=== PATIENT | female | born 1960 | race Caucasian/White ===

== ENCOUNTER 2018-02-28 11:11 | Observation (INO) | payer OTHER ==
[2018-02-28] MEDS ORDERED: ALBUTEROL 2.5 MG/3 ML NEB SOL IH PRN (13:05)
--- NOTE | 2018-02-28 13:17 | RAD REPORT ---
EXAM DESCRIPTION: CT - Head Brain Wo Cont - 02/28/2018 1:07 pm CLINICAL HISTORY: Headache, CVA COMPARISON: No comparisons TECHNIQUE: All CT scans are performed using dose optimization technique as appropriate and may inclu de automated exposure control or mA/KV adjustment according to patient size. FINDINGS: No intracranial hemorrhage, hydrocephalus or extra-axial fluid collection.No areas of brai n edema or evidence of midline shift. The paranasal sinuses and mastoids are clear. The calvarium is intact. IMPRESSION: No acute intracranial abnormality.
--- NOTE | 2018-02-28 13:26 | RAD REPORT ---
EXAM DESCRIPTION: RAD - Chest Pa And Lat (2 Views) - 02/28/2018 1:15 pm CLINICAL HISTORY: Shortness of breath COMPARISON: May 2009 TECHNIQUE: PA and lateral views of the chest were obtained. FINDINGS: The lungs are clear of a focal mass, consolidation or acute failure finding. Interstitial markings are prominent but not clearly different when adjusting for the current more shallow inspirat ory effort. Trachea is midline. Heart size is normal and central vasculature is within normal limit s. No pleural effusion or pneumothorax seen. No acute bony finding noted. No aortic abnormality. IMPRESSION: No acute cardiopulmonary process. No significant change from comparison.
[2018-02-28] MEDS ORDERED: ONDANSETRON 4 MG (ODT) TAB PO PRN (14:00)
[2018-02-28] MEDS ORDERED: PNEUMOCOCCAL VACCINE 0.5 ML IMVAC ONE (14:00)
[2018-02-28] MEDS ORDERED: POLYETHYL GLY 3350 17 GM/DOSE PO PRN (14:00)
[2018-02-28] MEDS ORDERED: NACHLORIDE 0.45% 1,000 ML IV SCH (14:00)
[2018-02-28] MEDS ORDERED: LOPERAMIDE HCL 2 MG CAPSULE PO PRN (14:00)
[2018-02-28] MEDS ORDERED: DIPHENHYDRAMINE 25 MG TAB/CAP PO PRN (14:00)
[2018-02-28] MEDS ORDERED: ONDANSETRON 4 MG/2 ML VIAL IV PRN (14:00)
[2018-02-28] MEDS: LEVALBUTEROL 1.25 MG/3 ML NEB IH SCH ×2 (14:37→19:58)
[2018-02-28] MEDS: IPRATROPIUM BROM 0.5MG/2.5ML IH SCH ×2 (14:37→19:58)
[2018-02-28 15:06] LABS: Protime INR 1.07
[2018-02-28 15:33] LABS: ALT/SGPT 25 U/L (12-78); AST/SGOT 14 U/L (15-37); Albumin 3.6 g/dL (3.4-5.0); Alkaline Phosphatase 76 U/L (45-117); BUN Blood Urea Nitrogen 12 mg/dL (7-18); Bicarbonate 28 mmol/L (21-32); Bilirubin Direct < 0.1 mg/dL (0-0.2); Bilirubin Total 0.2 mg/dL (0.2-1.0); Glucose Level 120 mg/dL (74-106); Magnesium 2.1 mg/dL (1.8-2.4); Potassium 3.8 mmol/L (3.5-5.1); Protein, Total 7.9 g/dL (6.4-8.2); Sodium Level 139 mmol/L (136-145)
[2018-02-28] MEDS ORDERED: ALBUTEROL INHALER 60 PUFF/8 GM IH PRN (15:37)
[2018-02-28 16:17] LABS: Absolute Lymphocytes (CBC) 2.1 K/uL (0.7-4.9); Absolute Monocytes 0.6 K/uL (0.1-1.3); Absolute Neutrophil 6.3 K/uL (1.8-8.0); Basophils % 0.3 % (0-1.3); Eosinophils % 0.7 % (0-4.4); Hematocrit 36.2 % (36.0-45.0); Lymphocytes % 22.9 % (15.3-44.8); MPV 8.6 fL (7.6-11.3); Monocytes % 6.7 % (3.3-12.3); RBC Red Blood Cell Count 4.21 M/uL (3.86-4.86)
[2018-02-28] MEDS ORDERED: ALBUTEROL IH PRN (16:49)
--- NOTE | 2018-02-28 18:03 | RAD REPORT ---
EXAM DESCRIPTION: MRI - Brain W/Wo Cont - 02/28/2018 5:55 pm CLINICAL HISTORY: CVA COMPARISON: Head Brain Wo Cont dated 02/28/2018; Chest Pa And Lat (2 Views) dated 02/28/2018; CHEST PA AND LAT 2 VIEW dated 05/20/2009 TECHNIQUE: Multi-sequence, multiplanar MR imaging of the brain was performed with contrast. FINDINGS: No intracranial hemorrhage, hydrocephalus, extra-axial fluid collection or acute infarctio n. No edema or shift of midline structures. No intracranial mass. DWI is negative for acute CVA. The midline structures are normally formed. Mastoid air cells and paranasal sinuses are clear. Post-contrast images show no abnormal enhancement to suggest tumor or infection. IMPRESSION: No acute or concerning intracranial abnormalities. No pathologic post-contrast enhancement suspected.
--- NOTE | 2018-02-28 18:08 | EKG ---
Test Date: 2018-02-28 Test Time: 13:27:20 Asset Specialist: WEN MEASUREMENT RESULTS: Intervals: Rate: 67 MI: 148 QRSD: 94 QT: 390 QTc: 412 [place]: P: 27 MI: 148 QRS: -3 T: 20 INTERPRETIVE STATEMENTS: Normal sinus rhythm Minimal voltage criteria for LVH, may be normal variant Borderline ECG No previous ECG available for comparison Electronically Signed On 02-28-18 18:06:32 CDT by Cyrus Tran
[2018-02-28] MEDS: ATORVASTATIN 10 MG TAB PO SCH ×2 (18:09→21:21)
[2018-02-28] MEDS: CLOPIDOGREL 75 MG TABLET PO SCH (18:09)
[2018-02-28] MEDS: LEVOTHYROXINE SOD 0.05 MG TABLET PO SCH (18:12)
[2018-02-28] MEDS ORDERED: POTASSIUM 25 MEQ EFFERV TAB PO ONE (19:21)
[2018-02-28 20:36] LABS: Urine Appearance CLEAR; Urine Bilirubin NEGATIVE (NEG); Urine Blood TRACE (NEG); Urine Color YELLOW; Urine Glucose NEGATIVE (NEG); Urine Protein NEGATIVE (NEG); Urine Urobilinogen 0.2 mg/dL (0.2-1.0)
[2018-02-28] MEDS ORDERED: DULERA 100/5 (MOMETASONE/FORMOTEROL) INHALER IH SCH (21:00)
[2018-02-28 21:05] LABS: Urine Microscopic Reflex ORDER UMIC
[2018-02-28] MEDS: ADVAIR DISKUS 250/50 IH SCH (21:21)
[2018-02-28] MEDS ORDERED: POTASSIUM CL SA 10 MEQ TAB PO ONE (22:00)
[2018-02-28 22:09] LABS: Urine Bacteria <20 /HPF (<20); Urine Culture Reflex Order NOT NEEDED; Urine RBC <5 /HPF (NONE SEEN)
[2018-02-28] MEDS: ACETAMINOPHEN 325 MG TABLET PO PRN (22:17)
[2018-03-01] MEDS: IPRATROPIUM BROM 0.5MG/2.5ML IH SCH ×2 (01:21→07:48)
[2018-03-01] MEDS: LEVALBUTEROL 1.25 MG/3 ML NEB IH SCH ×2 (01:21→07:48)
[2018-03-01] MEDS: LEVOTHYROXINE SOD 0.05 MG TABLET PO SCH (05:30)
[2018-03-01 06:48] LABS: BUN Blood Urea Nitrogen 11 mg/dL (7-18); Bicarbonate 27 mmol/L (21-32); Glucose Level 97 mg/dL (74-106); Potassium 3.8 mmol/L (3.5-5.1); Sodium Level 141 mmol/L (136-145)
[2018-03-01] MEDS: CLOPIDOGREL 75 MG TABLET PO SCH (08:48)
[2018-03-01] MEDS: ADVAIR DISKUS 250/50 IH SCH (08:48)
[2018-03-01] MEDS: ACETAMINOPHEN 325 MG TABLET PO PRN (08:56)
[2018-03-01] MEDS ORDERED: POTASSIUM CL SA 10 MEQ TAB PO ONE (10:00)
--- NOTE | 2018-03-01 13:01 | P.DS ---
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 SHE DOES NOT HAVE CVA ON MRI AND NO TUMOR IS DETECTED. SHE IS STABLE FOR DISCHARGE. FU IN OFFICE FOR VITAMINS BEING LOW. Vital Signs/Physical Exam: Temp Pulse Resp BP Pulse Ox 98.2 F 64 18 103/53 L 98 03/01/18 08:00 03/01/18 08:00 03/01/18 08:00 03/01/18 08:00 03/01/18 08:00 Laboratory Data at Discharge: WBC 9.1 K/uL (4.3-10.9) 02/28/18 14:33 Hgb 12.2 g/dL (12.0-15.0) 02/28/18 14:33 Hct 36.2 % (36.0-45.0) 02/28/18 14:33 Plt Count 272 K/uL (152-406) 02/28/18 14:33 PT 12.6 SECONDS (9.5-12.5) H 02/28/18 14:33 INR 1.07 02/28/18 14:33 APTT 31.4 SECONDS (24.3-36.9) 02/28/18 14:33 Sodium 141 mmol/L (136-145) 03/01/18 06:06 Potassium 3.8 mmol/L (3.5-5.1) 03/01/18 06:06 BUN 11 mg/dL (7-18) 03/01/18 06:06 Creatinine 0.60 mg/dL (0.55-1.3) 03/01/18 06:06 Glucose 97 mg/dL (74-106) 03/01/18 06:06 Phosphorus 2.5 mg/dL (2.5-4.9) 02/28/18 14:33 Magnesium 2.0 mg/dL (1.8-2.4) 03/01/18 06:06 Total Bilirubin 0.2 mg/dL (0.2-1.0) 02/28/18 14:33 AST 14 U/L (15-37) L 02/28/18 14:33 ALT 25 U/L (12-78) 02/28/18 14:33 Alkaline Phosphatase 76 U/L (45-117) 02/28/18 14:33 Home Medications: Albuterol Sulfate [Ventolin Hfa] 2 puff IH Q6H PRN 02/28/18 Fluticasone/Salmeterol [Advair 250-50 Diskus] 1 puff IH BID 02/28/18 Levothyroxine Sodium [Unithroid] 50 mcg PO DAILY 02/28/18 Activity: Ad yfn Followup: Steven Amezquita MD [Primary Care Provider] - 1-2 Weeks (call the office to make an appointment in 1-2 weeks. )
== END 2018-03-01 12:05 | disposition home or self-care (01) ==
LOC: 4TH 11:42
PROVIDERS: ADMIT Internal Medicine; ATTEND Internal Medicine
DX: R51 Headache (principal)
CPT/HCPCS: 36415; 70450; 70553; 71046; 80048; 80076; 81003; 81015; 82306; 82607; 83735; 84100; 84443; 85025; 85610; 85730; 93005; 94640; A9577; G0378; J7606

== ENCOUNTER 2019-07-24 21:54 | Observation (INO) | payer OTHER ==
[2019-07-24] MEDS ORDERED: MORPHINE 2 MG/ML SYR ONE (22:41)
[2019-07-24] MEDS ORDERED: NA CHLORIDE 0.9% 1,000 ML ONE (22:41)
[2019-07-24] MEDS ORDERED: ONDANSETRON 4 MG/2 ML VIAL ONE (23:52)
[2019-07-24] MEDS ORDERED: FAMOTIDINE 20 MG/2 ML VIAL IV ONE (23:52)
[2019-07-24] MEDS ORDERED: PIPER/TAZO/NS 3.375gm 3.375 GM/100 ML BAG ONE (23:52)
[2019-07-25 00:30] LABS: Basophils % 0.4 % (0-1.3); Hematocrit 35.5 % (36.0-45.0); Lymphocytes % 27.1 % (15.3-44.8); MPV 8.5 fL (7.6-11.3); RBC Red Blood Cell Count 4.12 M/uL (3.86-4.86)
[2019-07-25 00:31] LABS: Protime INR 1.05
[2019-07-25 00:35] LABS: ALT/SGPT 28 U/L (12-78); AST/SGOT 9 U/L (15-37); Albumin 3.6 g/dL (3.4-5.0); Alkaline Phosphatase 80 U/L (45-117); BUN Blood Urea Nitrogen 17 mg/dL (7-18); Bicarbonate 28 mmol/L (21-32); Bilirubin Direct < 0.1 mg/dL (0-0.2); Bilirubin Total 0.2 mg/dL (0.2-1.0); Glucose Level 106 mg/dL (74-106); Lipase 90 U/L (73-393); Magnesium 2.2 mg/dL (1.8-2.4); NT PRO-BNP 56 pg/mL (<125); Potassium 4.1 mmol/L (3.5-5.1); Protein, Total 7.9 g/dL (6.4-8.2); Sodium Level 138 mmol/L (136-145); Troponin (Emerg Dept Use Only) < 0.02 ng/mL (0.0-0.045)
--- NOTE | 2019-07-25 01:17 | ER ---
Nurse's Notes [facility] Name: Tiffany Kim Age: 59 yrs Sex: Female : 1960 Arrival Date: 07/24/2019 Time: 21:56 Bed 2 Private MD: Diagnosis: Abdominal tenderness Presentation: 07/24 22:05 Presenting complaint: Patient states: i have right side pain radiating to my RUQ and mg2 worst when I breathe. Transition of care: patient was not received from another setting of care. Onset of symptoms was July 16, 2019. Risk Assessment: Do you want to hurt yourself or someone else? Patient reports no desire to harm self or others. Initial Sepsis Screen: Does the patient meet any 2 criteria? No. Patient's initial sepsis screen is negative. Does the patient have a suspected source of infection? No. Patient's initial sepsis screen is negative. Care prior to arrival: None. 22:05 Method Of Arrival: Ambulatory mg2 22:05 Acuity: RUBI 3 mg2 Triage Assessment: 22:19 General: Appears in no apparent distress. comfortable, Behavior is calm, cooperative. mg2 Pain: Complains of pain in right side of her trunk Pain radiates to abdomen. Historical: - Allergies: 22:08 No Known Allergies; mg2 - Home Meds: 22:08 abuterol [Active]; levothyroxine oral [Active]; Spiriva [Active]; mg2 - PMHx: 22:08 Hypothyroidism; Asthma; mg2 - PSHx: 22:08 None; mg2 - Immunization history:: Flu vaccine is up to date. - Social history:: Smoking status: Patient/guardian denies using tobacco, Patient/guardian denies using alcohol, street drugs, IV drugs. - Ebola Screening: : No symptoms or risks identified at this time. - Family history:: not pertinent. Screenin:18 Abuse screen: Denies threats or abuse. Denies injuries from another. Nutritional mg2 screening: No deficits noted. Tuberculosis screening: No symptoms or risk factors identified. Fall Risk. Assessment: 23:00 General: Appears uncomfortable, Behavior is appropriate for age. Pain: Complains of lp1 pain in diaphragm Pain currently is 8 out of 10 on a pain scale. Quality of pain is described as sharp. Neuro: Level of Consciousness is awake, alert, obeys commands, Oriented to person, place, time, situation. Cardiovascular: Patient's skin is warm and dry. Respiratory: Respiratory effort is even, unlabored. GI: Abdomen is non-distended. : No signs and/or symptoms were reported regarding the genitourinary system. EENT: No signs and/or symptoms were reported regarding the EENT system. Derm: Skin is pink, warm \T\ dry. Musculoskeletal: No deficits noted. 23:30 Reassessment: Unable to access peripheral IV at this time. lp1 07/25 01:10 Reassessment: Patient to CT via wheelchair. lp1 01:30 Reassessment: Patient and/or family updated on plan of care and expected duration. Pain lp1 level reassessed. Patient states pain returning to RUQ of abdomen. Vital Signs: 07/24 22:06 BP 130 / 74; Pulse 72; Resp 18; Temp 98.5; Pulse Ox 98% on R/A; Weight 102.06 kg; mg2 Height 5 ft. 3 in. (160.02 cm); Pain 5/10; 07/25 00:00 BP 148 / 74; Pulse 60; Resp 18; Pulse Ox 99% on R/A; lp1 01:00 BP 141 / 78; Pulse 68; Resp 18; Pulse Ox 100% on R/A; lp1 01:30 BP 138 / 68; Pulse 68; Resp 18; Pulse Ox 98% on R/A; lp1 02:32 BP 119 / 67; Pulse 65; Resp 18; Pulse Ox 97% on R/A; lp1 03:02 BP 104 / 71; Pulse 66; Resp 18; Pulse Ox 100% on R/A; lp1 07/24 22:06 Body Mass Index 39.86 (102.06 kg, 160.02 cm) mg2 ED Course: 07/24 21:56 Patient arrived in ED. cl3 22:03 Dane Hopson MD is Attending Physician. matthew 22:06 Triage completed. mg2 22:08 Arm band placed on. mg2 22:17 Prasad Car, MARTA is Primary Nurse. jd3 22:18 Patient has correct armband on for positive identification. mg2 22:18 Door closed. Warm blanket given. mg2 22:48 XRAY Chest (1 view) In Process Unspecified. EDMS 23:09 Missed attempt(s): 22 gauge in right antecubital area. Missed attempt(s): 22 gauge in lp1 left antecubital area. 23:10 Grace Kulkarni RN is Primary Nurse. lp1 23:50 Missed attempt(s): 22 gauge in right forearm. Bleeding controlled, band aid applied, aa1 catheter tip intact. 07/25 00:00 Inserted saline lock: 24 gauge in left wrist, using aseptic technique. Blood collected. aa1 01:13 Mal Malagon MD is Hospitalizing Provider. matthew 01:44 No provider procedures requiring assistance completed. Patient admitted, IV remains in lp1 place. Administered Medications: 00:08 Drug: NS 0.9% 1000 ml Route: IV; Rate: 1 bolus; Site: left wrist; aa1 02:00 Follow up: IV Status: Completed infusion; IV Intake: 1000ml lp1 00:10 Drug: morphine 2 mg {Note: RASS 0.} Route: IVP; Site: left wrist; lp1 00:40 Follow up: Response: Pain is decreased lp1 00:10 Drug: Zofran 4 mg Route: IVP; Site: left wrist; lp1 01:33 Follow up: Response: No adverse reaction lp1 00:10 Drug: Pepcid 20 mg Route: IVP; Site: left wrist; lp1 01:33 Follow up: Response: No adverse reaction lp1 01:42 Drug: morphine 2 mg {Note: RASS 0.} Route: IVP; Site: left wrist; lp1 02:33 Follow up: Response: No adverse reaction lp1 01:43 Drug: Zosyn 3.375 grams Route: IVPB; Infused Over: 60 mins; Site: left wrist; lp1 02:45 Follow up: IV Status: Completed infusion; IV Intake: 100ml lp1 Intake: 02:00 IV: 1000ml; Total: 1000ml. lp1 02:45 IV: 100ml; Total: 1100ml. lp1 Outcome: 01:15 Decision to Hospitalize by Provider. matthew 01:45 Condition: stable lp1 01:45 Instructed on the need for admit. 03:03 Admitted to Tele accompanied by tech, family with patient, room 411, with chart, Report lp1 called to MARTA Paredes 03:04 Patient left the ED. lp1 Signatures: Dispatcher [employer] EDMT Emily Hu RN RN aa1 Dane Hopson MD MD cha Pena, Laura, RN RN lp1 Prasad Car RN RN jd3 Tano Jackson RN RN mg2 Javier Farrell cl3 Corrections: (The following items were deleted from the chart) 07/24 22:53 22:05 Presenting complaint: Patient states: i have right side pain radiating to my RUQ mg2 and worst when I breath. mg2 07/25 02:33 01:00 IV Status: Completed infusion; IV Intake: 1000ml lp1 lp1
--- NOTE | 2019-07-25 01:17 | EDPHYS ---
Physician Documentation [facility] Name: Tiffany Kim Age: 59 yrs Sex: Female : 1960 Arrival Date: 07/24/2019 Time: 21:56 Bed 2 Private MD: ED Physician Dane Hopson HPI: 07/24 22:35 This 59 yrs old Female presents to ER via Ambulatory with complaints of Side matthew Right Pain. 22:35 This 59 yrs old Female presents to ER via Ambulatory with complaints of Side matthew Right Pain. 22:35 The patient presents with abdominal pain in the upper abdomen, in the right upper matthew quadrant, abdominal distention in the upper abdomen, in the lower abdomen. Onset: The symptoms/episode began/occurred 2 week(s) ago. The symptoms do not radiate. Associated signs and symptoms: none. The symptoms are described as crampy, RIGHT UPPER QUADRANT. Modifying factors: The symptoms are alleviated by nothing, the symptoms are aggravated by. Severity of pain: At its worst the pain was mild moderate in the emergency department the pain has improved mildly. The patient has not experienced similar symptoms in the past. Historical: - Allergies: 22:08 No Known Allergies; mg2 - Home Meds: 22:08 abuterol [Active]; levothyroxine oral [Active]; Spiriva [Active]; mg2 - PMHx: 22:08 Hypothyroidism; Asthma; mg2 - PSHx: 22:08 None; mg2 - Immunization history:: Flu vaccine is up to date. - Social history:: Smoking status: Patient/guardian denies using tobacco, Patient/guardian denies using alcohol, street drugs, IV drugs. - Ebola Screening: : No symptoms or risks identified at this time. - Family history:: not pertinent. ROS: 22:35 Constitutional: Negative for fever, chills, and weight loss, Eyes: Negative for injury, matthew pain, redness, and discharge, ENT: Negative for injury, pain, and discharge, Neck: Negative for injury, pain, and swelling, Cardiovascular: Negative for chest pain, palpitations, and edema, Respiratory: Negative for shortness of breath, cough, wheezing, and pleuritic chest pain, Back: Negative for injury and pain, : Negative for injury, bleeding, discharge, and swelling, MS/Extremity: Negative for injury and deformity, Skin: Negative for injury, rash, and discoloration, Neuro: Negative for headache, weakness, numbness, tingling, and seizure, Psych: Negative for depression, anxiety, suicide ideation, homicidal ideation, and hallucinations, Allergy/Immunology: Negative for hives, rash, and allergies, Endocrine: Negative for neck swelling, polydipsia, polyuria, polyphagia, and marked weight changes, Hematologic/Lymphatic: Negative for swollen nodes, abnormal bleeding, and unusual bruising. 22:35 Abdomen/GI: Positive for abdominal pain, of the right upper quadrant. Exam: 22:35 Constitutional: This is a well developed, well nourished patient who is awake, alert, matthew and in no acute distress. Head/Face: Normocephalic, atraumatic. Eyes: Pupils equal round and reactive to light, extra-ocular motions intact. Lids and lashes normal. Conjunctiva and sclera are non-icteric and not injected. Cornea within normal limits. Periorbital areas with no swelling, redness, or edema. ENT: Nares patent. No nasal discharge, no septal abnormalities noted. Tympanic membranes are normal and external auditory canals are clear. Oropharynx with no redness, swelling, or masses, exudates, or evidence of obstruction, uvula midline. Mucous membranes moist. Neck: Trachea midline, no thyromegaly or masses palpated, and no cervical lymphadenopathy. Supple, full range of motion without nuchal rigidity, or vertebral point tenderness. No Meningismus. Chest/axilla: Normal chest wall appearance and motion. Nontender with no deformity. No lesions are appreciated. Cardiovascular: Regular rate and rhythm with a normal S1 and S2. No gallops, murmurs, or rubs. Normal PMI, no JVD. No pulse deficits. Respiratory: Lungs have equal breath sounds bilaterally, clear to auscultation and percussion. No rales, rhonchi or wheezes noted. No increased work of breathing, no retractions or nasal flaring. Back: No spinal tenderness. No costovertebral tenderness. Full range of motion. Female : Normal external genitalia. Skin: Warm, dry with normal turgor. Normal color with no rashes, no lesions, and no evidence of cellulitis. MS/ Extremity: Pulses equal, no cyanosis. Neurovascular intact. Full, normal range of motion. Neuro: Awake and alert, GCS 15, oriented to person, place, time, and situation. Cranial nerves II-XII grossly intact. Motor strength 5/5 in all extremities. Sensory grossly intact. Cerebellar exam normal. Normal gait. Psych: Awake, alert, with orientation to person, place and time. Behavior, mood, and affect are within normal limits. 22:35 Abdomen/GI: Inspection: distension, Bowel sounds: normal, Palpation: moderate abdominal tenderness, in the right upper quadrant, Liver: no appreciated palpable abnormalities, Hernia: not appreciated. Vital Signs: 22:06 BP 130 / 74; Pulse 72; Resp 18; Temp 98.5; Pulse Ox 98% on R/A; Weight 102.06 kg; mg2 Height 5 ft. 3 in. (160.02 cm); Pain 5/10; 07/25 00:00 BP 148 / 74; Pulse 60; Resp 18; Pulse Ox 99% on R/A; lp1 01:00 BP 141 / 78; Pulse 68; Resp 18; Pulse Ox 100% on R/A; lp1 01:30 BP 138 / 68; Pulse 68; Resp 18; Pulse Ox 98% on R/A; lp1 02:32 BP 119 / 67; Pulse 65; Resp 18; Pulse Ox 97% on R/A; lp1 03:02 BP 104 / 71; Pulse 66; Resp 18; Pulse Ox 100% on R/A; lp1 07/24 22:06 Body Mass Index 39.86 (102.06 kg, 160.02 cm) mg2 MDM: 07/24 22:19 Patient medically screened. [facility] 22:42 Data reviewed: vital signs, nurses notes, lab test result(s), EKG, radiologic studies, [facility] CT scan, plain films. 07/24 22:35 Order name: Basic Metabolic Panel; Complete Time: 00:58 [facility] 07/24 22:35 Order name: CBC with Diff; Complete Time: 00:58 [facility] 07/24 22:35 Order name: LFT's; Complete Time: 00:58 [facility] 07/24 22:35 Order name: Magnesium; Complete Time: 00:58 [facility] 07/24 22:35 Order name: NT PRO-BNP; Complete Time: 00:58 [facility] 07/24 22:35 Order name: PT-INR; Complete Time: 00:58 [facility] 07/24 22:35 Order name: Troponin (emerg Dept Use Only); Complete Time: 00:58 [facility] 07/24 22:35 Order name: XRAY Chest (1 view) [facility] 07/24 22:35 Order name: Lipase; Complete Time: 00:58 [facility] 07/24 22:35 Order name: Urine Culture [facility] 07/24 22:43 Order name: CT Abd/Pelvis - PO and IV Contrast [facility] 07/24 23:20 Order name: Urine Dipstick--Ancillary (enter results) mw2 07/25 02:46 Order name: Urine Dipstick-Ancillary [facility] 07/24 22:35 Order name: EKG; Complete Time: 22:40 [facility] 07/24 22:35 Order name: Cardiac monitoring; Complete Time: 23:32 [facility] 07/24 22:35 Order name: EKG - Nurse/Tech; Complete Time: 23:32 [facility] 07/24 22:35 Order name: IV Saline Lock; Complete Time: 00:23 [facility] 07/24 22:35 Order name: Labs collected and sent; Complete Time: 00:22 [facility] 07/24 22:35 Order name: O2 Per Protocol; Complete Time: 23:33 [facility] 07/24 22:35 Order name: O2 Sat Monitoring; Complete Time: 23:33 [facility] 07/24 22:35 Order name: Urine Dipstick-Ancillary (obtain specimen); Complete Time: 23:32 [facility] Administered Medications: 07/25 00:08 Drug: NS 0.9% 1000 ml Route: IV; Rate: 1 bolus; Site: left wrist; aa1 02:00 Follow up: IV Status: Completed infusion; IV Intake: 1000ml lp1 00:10 Drug: morphine 2 mg {Note: RASS 0.} Route: IVP; Site: left wrist; lp1 00:40 Follow up: Response: Pain is decreased lp1 00:10 Drug: Zofran 4 mg Route: IVP; Site: left wrist; lp1 01:33 Follow up: Response: No adverse reaction lp1 00:10 Drug: Pepcid 20 mg Route: IVP; Site: left wrist; lp1 01:33 Follow up: Response: No adverse reaction lp1 01:42 Drug: morphine 2 mg {Note: RASS 0.} Route: IVP; Site: left wrist; lp1 02:33 Follow up: Response: No adverse reaction lp1 01:43 Drug: Zosyn 3.375 grams Route: IVPB; Infused Over: 60 mins; Site: left wrist; lp1 02:45 Follow up: IV Status: Completed infusion; IV Intake: 100ml lp1 Disposition: 07/25/19 01:15 Hospitalization ordered by Mal Malagon for Observation. Preliminary diagnosis is Abdominal tenderness. - Bed requested for Telemetry/MedSurg (observation). - Status is Observation. lp1 - Condition is Fair. - Problem is new. - Symptoms have improved. UTI on Admission? No Signatures: Dispatcher [employer] EDMS Emily Hu RN RN aa1 Dane Hopson MD MD cha Pena, Laura RN RN lp1 Jama Moore mw2 Tano Jackson RN RN mg2 Corrections: (The following items were deleted from the chart) 01:29 01:15 Hospitalization Ordered by Mal Malagon MD for Observation. Preliminary mw2 diagnosis is Abdominal tenderness. Bed requested for Telemetry/MedSurg (observation). Status is Observation. Condition is Fair. Problem is new. Symptoms have improved. UTI on Admission? No. matthew 03:04 01:29 07/25/2019 01:15 Hospitalization Ordered by Mal Malagon MD for Observation. lp1 Preliminary diagnosis is Abdominal tenderness. Bed requested for Telemetry/MedSurg (observation). Status is Observation. Condition is Fair. Problem is new. Symptoms have improved. UTI on Admission? No. mw2
[2019-07-25] MEDS ORDERED: MORPHINE 2 MG/ML SYR ONE (01:40)
[2019-07-25 02:45] LABS: Urine Blood 1+ (NEG); Urine Glucose NEGATIVE (NEG); Urine Protein NEGATIVE (NEG); Urine Specific Gravity 1.025 (1.005-1.030)
[2019-07-25] MEDS ORDERED: MORPHINE 4 MG/ML SYR IV PRN (03:26)
[2019-07-25] MEDS ORDERED: ACETAMINOPHEN 500 MG TAB PO PRN (03:26)
[2019-07-25 04:19] VITALS: BMI 39.8
--- NOTE | 2019-07-25 08:53 | RAD REPORT ---
EXAM DESCRIPTION: Yessenia Single View07/24/2019 10:47 pm CLINICAL HISTORY: Abd pain COMPARISON: 2018 FINDINGS: The lungs appear clear of acute infiltrate. The heart is normal size IMPRESSION: No acute abnormalities displayed
[2019-07-25] MEDS: ONDANSETRON 4 MG/2 ML VIAL IV PRN (08:57)
[2019-07-25] MEDS: FAMOTIDINE 20 MG/2 ML VIAL IV SCH ×2 (08:57→20:41)
[2019-07-25] MEDS: NA CHLORIDE 0.9% 1,000 ML IV SCH ×3 (09:55→17:13)
[2019-07-25] MEDS: PIPER/TAZO/NS 3.375gm 3.375 GM/100 ML BAG IVPB SCH ×2 (09:56→17:13)
--- NOTE | 2019-07-25 15:31 | EKG ---
Test Date: 2019-07-24 Test Time: 23:14:12 Poultry Offal Worker: SPRING MEASUREMENT RESULTS: Intervals: Rate: 66 W[place]: 152 QRSD: 92 QT: 394 QTc: 413 [place]: P: 42 WV: 152 QRS: -8 T: 23 INTERPRETIVE STATEMENTS: Normal sinus rhythm Normal ECG Compared to ECG 02/28/2018 13:27:20 Left ventricular hypertrophy no longer present Electronically Signed On 07-25-19 15:30:44 ART OBJECTS SALESPERSON by Rajiv Degroot
--- NOTE | 2019-07-25 15:31 | RAD REPORT ---
EXAM DESCRIPTION: US - Abdomen Exam Limited - 07/25/2019 3:15 pm CLINICAL HISTORY: Abdominal pain. COMPARISON: None. FINDINGS: The gallbladder wall is not thickened. Multiple gallstones. The biliary tree is normal caliber. Fatty liver IMPRESSION: Cholelithiasis without evidence of cholecystitis
[2019-07-25] MEDS: MORPHINE 2 MG/ML SYR IV PRN (17:15)
[2019-07-26] MEDS: PIPER/TAZO/NS 3.375gm 3.375 GM/100 ML BAG IVPB SCH ×3 (00:15→16:29)
[2019-07-26] MEDS: NA CHLORIDE 0.9% 1,000 ML IV SCH ×4 (02:46→19:26)
[2019-07-26] MEDS: MORPHINE 2 MG/ML SYR IV PRN ×3 (06:31→17:57)
[2019-07-26 07:00] LABS: ALT/SGPT 20 U/L (12-78); AST/SGOT 9 U/L (15-37); Albumin 3.1 g/dL (3.4-5.0); Alkaline Phosphatase 60 U/L (45-117); BUN Blood Urea Nitrogen 13 mg/dL (7-18); Bicarbonate 26 mmol/L (21-32); Bilirubin Direct < 0.1 mg/dL (0-0.2); Bilirubin Total 0.2 mg/dL (0.2-1.0); Glucose Level 102 mg/dL (74-106); Lipase 146 U/L (73-393); Protein, Total 6.7 g/dL (6.4-8.2); Sodium Level 142 mmol/L (136-145)
[2019-07-26 07:34] LABS: Absolute Lymphocytes (CBC) 2.7 K/uL (0.7-4.9); Basophils % 0.3 % (0-1.3); Hematocrit 29.2 % (36.0-45.0); Lymphocytes % 29.4 % (15.3-44.8); MPV 8.5 fL (7.6-11.3); RBC Red Blood Cell Count 3.38 M/uL (3.86-4.86)
[2019-07-26] MEDS: FAMOTIDINE 20 MG/2 ML VIAL IV SCH ×2 (08:42→20:40)
--- NOTE | 2019-07-26 13:03 | P.HP ---
Date of Service: 07/26/19 PC: This 59-year-old female presents emergency room with severe right upper quadrant abdominal pain for diagnosis and treatment. HPC: Yumiko is been experiencing right upper quadrant abdominal pain off and on for the last few months. Described as mostly in her back. In the upper part of her abdomen. However this episode was the worst she ever had and necessitated a visit to the ER. PMH: 3 para 3, PSHx: Previous hysterectomy, no upper abdominal surgeries SOC: No known allergies SYS REVIEW: No cough, wheeze, shortness of breath. No chest pain or palpitations. Denies any urinary complaints. O/E awake alert, comfortable HEENT: No jaundice Chest: Air Entry equal bilaterally ABD: Mild right upper quadrant tenderness LOCO: Intact DATA: CT scan negative, ultrasound ordered for a.m. IMPRESSION: Most likely chronic cholecystitis or biliary colic PLAN: Patient was admitted for observation and pain control. Will take to the OR once we have documented gallbladder pathology.
--- NOTE | 2019-07-26 13:04 | P.PN ---
Date of Service: 07/26/19 S: Patient feels well today, still has some fullness of the right upper quadrant. The pain is controlled. O: Ultrasound documents gallstones A: This patient has chronic cholecystitis with biliary colic P: I will do the operating room for a laparoscopic possible open cholecystectomy with cholangiogram. The risks of this procedure have been discussed. The possibility of bleeding, infection, injury to bowel was blood losses interstices been explained. The possibility for definitive further surgeries and procedures was discussed. She understands and wishes to proceed.
[2019-07-26] MEDS ORDERED: ROCURONIUM 50 MG/5 ML VIAL IV ONE (13:30)
[2019-07-26] MEDS ORDERED: propofoL 200 MG/20 ML VIAL IV ONE (13:30)
[2019-07-26] MEDS ORDERED: FENTANYL CITR 100 MCG/2 ML ONE (13:31)
[2019-07-26] MEDS ORDERED: LIDOCAINE 2% MPF 5 ML VIAL ONE (13:31)
[2019-07-26] MEDS ORDERED: Ringers Lactate 1,000 ML IV ONE (13:36)
[2019-07-26] MEDS ORDERED: KETOROLAC 30 MG/ML INJ ONE (14:11)
[2019-07-26] MEDS ORDERED: dexAMETHasone 10 MG/ML VIAL ONE (14:11)
[2019-07-26] MEDS ORDERED: ONDANSETRON 4 MG/2 ML VIAL ONE ×2 (14:11→15:43)
[2019-07-26] MEDS ORDERED: GLYCOPYRROLATE 0.2 MG/ML SYR ONE ×2 (14:18→15:42)
[2019-07-26] MEDS ORDERED: NEOSTIGMINE 1 MG/ML -10 ML VIAL ONE (14:19)
--- NOTE | 2019-07-26 15:18 | P.OP ---
Preoperative diagnosis: Cholelithiasis, biliary colic Postoperative diagnosis: The same Primary procedure: Laparoscopic cholecystectomy Secondary procedure: Cholangiogram Other procedure(s): Lyses of liver adhesions Anesthesia: General Estimated blood loss: Less than 10 cc Specimen: Bladder incontinence Operative Technique: The patient brought the operating room and placed supine on the table. After the induction of adequate general endotracheal anesthesia, there the abdomen was prepped with a DuraPrep solution, and she was draped in the usual aseptic manner. A subumbilical incision was made. This was brought down through the skin and subcutaneous tissue. The Visiport was used to enter the peritoneal cavity and created pneumoperitoneum to approximately 12 mm of mercury. Under direct vision , a 5 mm trocar was placed in the upper midline, and 2 other 5 mm trocars were placed on the right lateral side of the abdomen. We were now able to visualize right upper quadrant. We cc at the patient has some adhesions over the liver to the anterior abdominal wall. These were taken down using blunt and sharp dissection. The omentum was also markedly adherent to this area. This was mobilized and dissected free. The gallbladder was visible. Once again chronic adhesions were adherent to the serosal surface due to the omentum. These adhesions were gently taken down using blunt sharp dissection as well as judicious use of the cautery. The gallbladder was then Re markedly distended. It was necessary to aspirate its contents so we could place a grasper on the fundus. This having been done we were now able to also grasped by Naif's pouch. Applied lateral traction we exposed the cystic duct and artery. Having obtained the critical view. A clip was placed between the gallbladder and the cystic duct. An opening was made into the cystic duct through which we obtained a normal intraoperative cholangiogram. There was good flow of contrast into the duodenum. No filling defects were noted. The catheter was removed. Clips were placed on the distal portion of the cystic duct. The artery was identified clipped and divided. The gallbladder was then dissected free from the liver bed , placed into an Endo-Catch, and brought out through the umbilical trocar site. At this point the abdomen was inspected once again to ensure adequate hemostasis. Irrigating fluid was aspirated from the right upper quadrant area at the umbilical trocar site was approximated using the Endo Close an ab 2 absorbable sutures. The pneumoperitoneum was collapsed, the sutures tied, and li applied to the skin. At the end of the procedure she was stable was sent to the recovery room. Needle sponge instrument count were correct. No drains were placed. Complications: None Transferred to: Recovery Room Condition: Good
[2019-07-26] MEDS: HYDROMORPHONE HCL 2 MG/ML inj ONE ×2 (15:52→16:00)
--- NOTE | 2019-07-26 17:20 | RAD REPORT ---
EXAM DESCRIPTION: RAD - Cholangiogram Oper-Xray Or - 07/26/2019 4:04 pm CLINICAL HISTORY: LAP THOR DONE WITH DR. PALOMO IN OR 2 COMPARISON: Abdomen Exam Limited dated 07/25/2019 FINDINGS: Cystic duct injection was performed by referring physician. Common bile duct is normal iván iber. Small rounded filling defect in the mid common duct is favored to be an air bubble rather than a retained stone. Total fluoro time: 0.4 minutes
[2019-07-26] MEDS: HYDROCODONE/APAP 7.5/325 MG TAB PO PRN (17:57)
[2019-07-26] MEDS: ONDANSETRON 4 MG/2 ML VIAL IV PRN (18:15)
[2019-07-26] MEDS: MORPHINE 4 MG/ML SYR IV PRN (20:41)
[2019-07-26 21:55] VITALS: O2SAT 96
[2019-07-27] MEDS: PIPER/TAZO/NS 3.375gm 3.375 GM/100 ML BAG IVPB SCH ×2 (00:18→08:48)
[2019-07-27] MEDS: MORPHINE 4 MG/ML SYR IV PRN ×2 (05:05→08:48)
[2019-07-27] MEDS: NA CHLORIDE 0.9% 1,000 ML IV SCH (05:08)
[2019-07-27] MEDS: FAMOTIDINE 20 MG/2 ML VIAL IV SCH (08:49)
[2019-07-27] MEDS: HYDROCODONE/APAP 7.5/325 MG TAB PO PRN (11:13)
--- NOTE | 2019-07-27 11:25 | RAD REPORT ---
EXAM DESCRIPTION: CT - Abdomen Pelvis W Contrast - 07/25/2019 2:02 am COMPARISON: None CLINICAL HISTORY: Abdominal pain TECHNIQUE: Multiple helical axial images were obtained through the abdomen and pelvis using intraven ous contrast. Coronal and sagittal reformatted images were obtained. All CT scans at this facility use dose modulation, iterative reconstruction, and/or weight-based dosi ng when appropriate to reduce radiation dose to as low as reasonably achievable. FINDINGS: Lung bases: Appear unremarkable. Liver: Low-attenuation is present suggestive of fatty changes. Gallbladder/biliary: Appears unremarkable Pancreas: Unremarkable. No evidence of ductal enlargement. Spleen: Appears unremarkable. No splenomegaly. Adrenals: Unremarkable. Kidneys and ureters: No evidence of hydronephrosis. Normal enhancement. Bladder: Unremarkable. Pelvic organs: Post hysterectomy changes are demonstrated. Bowel: No evidence of bowel obstruction. No bowel wall thickening. Appendix appears unremarkable. Vasculature: Unremarkable. Peritoneum: No free air. No significant free fluid. Lymph nodes: Unremarkable. Soft tissues: Unremarkable. Bones: Unremarkable. IMPRESSION: No evidence for an acute process within the abdomen or pelvis. Electronically signed by: Lobito Caldwell MD 07/25/2019 1:53 AM [employer] Due to temporary technical issues with the PACS/Fluency reporting system, reports are being signed by the in house radiologist as a courtesy to ensure prompt reporting. The interpreting radiologist is f ully responsible for the content of the report.
[2019-07-27 12:11] VITALS: BP 126/58; TEMP 98.2
--- NOTE | 2019-07-27 13:52 | P.PN ---
Date of Service: 07/27/19 S: No specific complaints today, feels somewhat better. Still having some incisional soreness. Has been up ambulating, passing gas per rectum, tolerating a diet and her pain appears well controlled on oral medications. O: Dysphagia clean, vital signs are stable, remains afebrile A: Surgically stable status post laparoscopic cholecystectomy with cholangiogram P: Discharge home. Patient is see me next Saturday, she is to call for appointment. Diet as tolerated, change dressings as needed, she may shower. Prescription for pain medicine given to patient. Any questions or problems she can return to the emergency room, or contact me.
== END 2019-07-27 14:05 | disposition home or self-care (01) ==
LOC: ER 21:54 → ERHOLD 07-25 01:22 → 4TH 07-25 02:47
PROVIDERS: ADMIT Surgery; ATTEND Surgery
PROC: BF00YZZ Plain Radiography of Bile Ducts using Other Contrast (ICD-10-PCS; 2019-07-26)
PROC: 0FT44ZZ Resection of Gallbladder, Percutaneous Endoscopic Approach (ICD-10-PCS; principal; 2019-07-26 14:00)
DX: K80.20 Calculus of gallbladder without cholecystitis without obstruction (principal)
CPT/HCPCS: 96365; 96361; 93005; 87088; 85025 ×2; 87086; 80048 ×2; 36415 ×2; 83735; 85610; 80076 ×2; 88304; 81003; 84484; 83690 ×2; 83880; 74177; 74300; 71045; 76705; 96375; 99285; 47563; Q9967; J2704; J2710; J1170; J3010; J2543 ×3; J1100; J2270 ×6; G0378 ×5; J7120; J7030 ×6; J2405 ×5

== ENCOUNTER 2020-01-26 17:52 | Emergency (ER) | payer OTHER ==
[2020-01-26] MEDS ORDERED: dexAMETHasone 10 MG/ML VIAL ONE (19:33)
[2020-01-26] MEDS ORDERED: ALBUTEROL 2.5 MG/3 ML NEB SOL ONE (19:33)
[2020-01-26] MEDS ORDERED: IPRATROPIUM BROM 0.5MG/2.5ML ONE (19:33)
--- NOTE | 2020-01-27 10:26 | ER ---
Nurse's Notes [facility] Name: Tiffany Kim Age: 59 yrs Sex: Female : 1960 Arrival Date: 01/26/2020 Time: 17:56 Bed 20 Private MD: Diagnosis: Asthma Presentation: 01/25 18:00 Chief complaint: Patient states: I have asthma and my chest is real congested. I have ca1 been taking a medication to help with the congestion but today I just couldn't breathe at all. I have a really having a hard time breathing. Denies cough. Denies fever. Coronavirus screen: Proceed with normal triage. Patient denies a cough. Patient reports shortness of breath or difficulty breathing. Patient denies measured and/or subjective temperature greater than 100.4F prior to today's visit. Patient denies travel on a cruise ship or to a country the [facility] currently lists as an affected area. Patient denies contact with known and/or suspected case of COVID-19. Ebola Screen: Patient negative for fever greater than or equal to 101.5 degrees Fahrenheit, and additional compatible Ebola Virus Disease symptoms Patient denies exposure to infectious person. Patient denies travel to an Ebola-affected area in the 21 days before illness onset. No symptoms or risks identified at this time. Initial Sepsis Screen: Does the patient meet any 2 criteria? No. Patient's initial sepsis screen is negative. Does the patient have a suspected source of infection? No. Patient's initial sepsis screen is negative. Risk Assessment: Do you want to hurt yourself or someone else? Patient reports no desire to harm self or others. Onset of symptoms was January 26, 2020. 18:00 Method Of Arrival: Ambulatory ca1 18:00 Acuity: RUBI 3 ca1 Triage Assessment: 18:05 General: Appears in no apparent distress. comfortable, Behavior is calm, cooperative, ca1 appropriate for age. Respiratory: Reports shortness of breath Airway is patent Respiratory effort is even, unlabored, Respiratory pattern is regular, symmetrical. Historical: - Allergies: 18:04 No Known Allergies; ca1 - Home Meds: 18:04 abuterol [Active]; Spiriva [Active]; levothyroxine oral [Active]; ca1 - PMHx: 18:04 Asthma; Hypothyroidism; ca1 - PSHx: 18:04 Cholecystectomy; Hysterectomy; ca1 - Immunization history:: Adult Immunizations up to date. - Social history:: Smoking status: Patient denies any tobacco usage or history of. Screenin:34 Abuse screen: Denies threats or abuse. Nutritional screening: No deficits noted. ea Tuberculosis screening: No symptoms or risk factors identified. Fall Risk None identified. Assessment: 19:33 General: Appears uncomfortable, Behavior is anxious. Pain: Denies pain. Neuro: Level of ea Consciousness is awake, alert, obeys commands, Oriented to person, place, time, situation. Cardiovascular: Patient's skin is warm and dry. Respiratory: Airway is patent Respiratory effort is even, unlabored, Respiratory pattern is regular, symmetrical, Breath sounds are clear bilaterally. Derm: Skin is pink, warm \T\ dry. 20:50 Reassessment: Patient and/or family updated on plan of care and expected duration. Pain ea level reassessed. Patient is alert, oriented x 3, equal unlabored respirations, skin warm/dry/pink. 21:53 Reassessment: Patient and/or family updated on plan of care and expected duration. Pain ea level reassessed. Patient is alert, oriented x 3, equal unlabored respirations, skin warm/dry/pink. Discharge instruction given to patient, verbalized the understanding of instruction. Pt left ED ambulatory tolerating well. 01/26 01:05 Reassessment: This nurseMiriam RN was not involved in care of this patient. ls4 Vital Signs: 01/25 18:00 BP 145 / 84; Pulse 80; Resp 20 S; Temp 98.1(TE); Pulse Ox 100% on R/A; Weight 99.79 kg ca1 (R); Height 5 ft. 3 in. (160.02 cm) (R); 21:30 BP 130 / 78; Pulse 78; Resp 18; Temp 97.8; Pulse Ox 99% ; ea 18:00 Body Mass Index 38.97 (99.79 kg, 160.02 cm) ca1 ED Course: 17:56 Patient arrived in ED. fj1 18:03 Triage completed. ca1 18:04 Arm band placed on right wrist. ca1 18:37 Miriam Mckinnon, RN is Primary Nurse. ls4 18:53 Ben Mendiola PA is PHCP. [facility] 18:53 Rob Storey MD is Attending Physician. [facility] 19:34 Patient has correct armband on for positive identification. Placed in gown. Bed in low ea position. Call light in reach. 21:51 No provider procedures requiring assistance completed. Patient did not have IV access ea during this emergency room visit. Administered Medications: 19:32 Drug: DuoNeb (3:1) (2.5 mg - 0.5 mg) 3 ml Route: Nebulizer; ea 21:00 Follow up: Response: No adverse reaction ea 19:32 Drug: Decadron 10 mg Route: IM; Site: right deltoid; ea 21:00 Follow up: Response: No adverse reaction ea Outcome: 21:37 Discharge ordered by . satinder 21:51 Discharged to home ambulatory. ea 21:51 Condition: stable 21:51 Discharge instructions given to patient, Instructed on discharge instructions, follow up and referral plans. Demonstrated understanding of instructions, follow-up care. 21:55 Patient left the ED. ea Signatures: Ben Mendiola PA PA jmm Antunez, Elena RN Miriam Ojeda ea RN RN ls4 Shelby Lynn RN RN [facility] Pool Resendez [facility]
--- NOTE | 2020-01-27 10:26 | EDPHYS ---
Physician Documentation [facility] Name: Tiffany Kim Age: 59 yrs Sex: Female : 1960 Arrival Date: 01/26/2020 Time: 17:56 Bed 20 Private MD: ED Physician Rob Storey HPI: 01/25 19:16 This 59 yrs old Female presents to ER via Ambulatory with complaints of jmm Breathing Difficulty. 19:16 The patient has shortness of breath at rest. Onset: The symptoms/episode began/occurred jmm gradually, 1 week(s) ago. Duration: The symptoms are continuous. The patient's shortness of breath is aggravated by nothing, is alleviated by nothing. This is a 59 year old female with a history of asthma that presents to the ED with 1 week of shortness of breath she attributes to asthma. Inhalers have given little relief. Patient denies fever. Patient states this is the same characteristic dyspnea. . Historical: - Allergies: 18:04 No Known Allergies; ca1 - Home Meds: 18:04 abuterol [Active]; Spiriva [Active]; levothyroxine oral [Active]; ca1 - PMHx: 18:04 Asthma; Hypothyroidism; ca1 - PSHx: 18:04 Cholecystectomy; Hysterectomy; ca1 - Immunization history:: Adult Immunizations up to date. - Social history:: Smoking status: Patient denies any tobacco usage or history of. ROS: 19:16 Constitutional: Negative for fever, chills, and weight loss, Cardiovascular: Negative jmm for chest pain, palpitations, and edema. 19:16 Respiratory: Positive for cough, shortness of breath. 19:16 All other systems are negative. Exam: 19:16 Constitutional: This is a well developed, well nourished patient who is awake, alert, jmm and in no acute distress. Head/Face: atraumatic. Eyes: EOMI, no conjunctival erythema appreciated ENT: Moist Mucus Membranes Neck: Trachea midline, Supple Chest/axilla: Normal chest wall appearance and motion. Cardiovascular: Regular rate and rhythm. No edema appreciated 19:16 Abdomen/GI: Non distended, soft Back: Normal ROM Skin: General appearance color normal MS/ Extremity: Moves all extremities, no obvious deformities appreciated, no edema noted to the lower extremities Neuro: Awake and alert, normal gait Psych: Behavior is normal, Mood is normal, Patient is cooperative and pleasant 19:16 Respiratory: the patient does not display signs of respiratory distress, Respirations: normal, Breath sounds: wheezing: that is mild. Vital Signs: 18:00 BP 145 / 84; Pulse 80; Resp 20 S; Temp 98.1(TE); Pulse Ox 100% on R/A; Weight 99.79 kg ca1 (R); Height 5 ft. 3 in. (160.02 cm) (R); 21:30 BP 130 / 78; Pulse 78; Resp 18; Temp 97.8; Pulse Ox 99% ; ea 18:00 Body Mass Index 38.97 (99.79 kg, 160.02 cm) ca1 MDM: 19:16 Patient medically screened. [facility] 21:32 Data reviewed: vital signs, nurses notes. Counseling: I had a detailed discussion with satinder the patient and/or guardian regarding: the historical points, exam findings, and any diagnostic results supporting the discharge/admit diagnosis, the need for outpatient follow up, to return to the emergency department if symptoms worsen or persist or if there are any questions or concerns that arise at home. Administered Medications: 19:32 Drug: DuoNeb (3:1) (2.5 mg - 0.5 mg) 3 ml Route: Nebulizer; ea 21:00 Follow up: Response: No adverse reaction 19:32 Drug: Decadron 10 mg Route: IM; Site: right deltoid; ea 21:00 Follow up: Response: No adverse reaction Disposition: 01/26 07:15 Co-signature as Attending Physician, Rob Storey MD. rn Disposition: 01/26/20 21:37 Discharged to Home. Impression: Asthma. - Condition is Stable. - Discharge Instructions: Asthma Attack Prevention, Adult. - Prescriptions for Prednisone 20 mg Oral Tablet - take 3 tablet by ORAL route once daily for 5 days; 15 tablet. - Medication Reconciliation Form, Thank You Letter, Antibiotic Education, Prescription Opioid Use form. - Follow up: Private Physician; When: 2 - 3 days; Reason: Recheck today's complaints, Continuance of care, Re-evaluation by your physician. Signatures: Ben Mendiola PA PA jmm Nieto, Roman, MD MD rn Antunez, Elena, RN RN ea Acob, Cheryl, RN RN ca1 Corrections: (The following items were deleted from the chart) 01/25 21:55 21:37 01/26/2020 21:37 Discharged to Home. Impression: Asthma. Condition is Stable. ea Forms are Medication Reconciliation Form, Thank You Letter, Antibiotic Education, Prescription Opioid Use. Follow up: Private Physician; When: 2 - 3 days; Reason: Recheck today's complaints, Continuance of care, Re-evaluation by your physician. satinder
[2020-01-27 12:26] VITALS: BP 130/78; TEMP 97.8; O2SAT 99
== END 2020-01-26 21:55 | disposition home or self-care (01) ==
LOC: ER 17:52
DX: J45.909 Unspecified asthma, uncomplicated (principal); E03.9 Hypothyroidism, unspecified
CPT/HCPCS: 96372; 99284; J1100

== ENCOUNTER 2023-06-10 11:19 | Emergency (ER) | payer OTHER ==
--- OUTSIDE RECORDS SUMMARY | 2023-06-10 11:24 | XMS REPORT | Continuity of Care Document ---
:1960 Author Organization [facility] t Address [address] [place] [address] [place] [id number] Care Team Providers Name Role Phone SCHUYLER LANG Primary Care Physician Unavailable Josephine Smith Attending Clinician Unavailable Francoise Suarez Attending Clinician Unavailable DANII SCHAEFER Attending Clinician Unavailable Danii Schaefer MD Attending Clinician [phone] IRWIN GALEANO Attending Clinician Unavailable Candelaria Rivera Attending Clinician CANDELARIA WILKINSON Attending Clinician Unavailable LAB90 Attending Clinician Unavailable Irwin Moreno Attending Clinician CANDELARIA WILKINSON Admitting Clinician Unavailable Payers Payer Name Policy Type Policy Number Effective Date Expiration Date S isis MILLARD 2 [id number] 2021 00:00:00 Problems Condition Condition Condition Status Onset Resolution Last Treating Co mments Source Name Details Category Date Date Treatment Clinician Date Hypothyroi Hypothyroi Disease Active K elsejacinto dism dism 2-28 Seybold 00:00: 00 Mild Mild Disease Active Nona persistent persistent 2-28 Se ybold asthma asthma 00:00: without without 00 complicati complicati on on Gastroesop Gastroesop Disease Active Delonte hedrick hageal hageal 2-28 Seybold reflux reflux 00:00: disease disease 00 Left knee Left knee Disease Active Uni vers pain pain 7- ity of 00:00: [place] 00 Medical Branch Allergies, Adverse Reactions, Alerts Allergy Allergy Status Severity Reaction(s) Onset Inactive Treating Comm ents Source Name Type Date Date Clinician NO KNOWN Drug Active Univers ALLERGIE Class ity of S [facility] Social History Social Habit Start Date Stop Date Quantity Comments Source Exposure to Not sure [facility] SARS-CoV-2 (event) Medica l Branch Alcohol intake 2021-10-29 2021-10-29 0 /d [facility] 00:00:00 00:00:00 Medical Branch Sex Ass[birth year] At [birth year] [facility] 00:00:00 00:00:00 Medical Branch Smoking Status Start Date Stop Date Source Never smoked tobacco Nona Seyb old Medications Ordered Filled Start Stop Current Ordering Indication Dosage Frequency Signature Comments Components Source Medication Medication Date Date Medication? Clinician (SIG) Name Name Methocarbam Yes [id number] TAKE 1 Nona ol 750 MG 5-06 TABLET BY Seybo ld oral Tablet 00:00: MOUTH FOUR 00 TIMES A DAY NEEDED FOR MUSCLE SPASM Acetaminoph Yes [id number] 1{tbl} Q.25D Take 1 Nona en-Codeine 4-06 tablet by Seyb old 300-30 MG 00:00: mouth oral Tablet 00 every 6 hours as needed for pain Ibuprofen Yes [id number] 600mg Q.[id number] Take 1 [place] 600 MG oral 4-06 [id number] tablet Seybold Tablet 00:00: 3D (600 mg 00 total) by mouth every 8 hours as needed Methocarbam Yes [id number] TAKE 1 Nona ol 750 MG 4-06 TABLET BY Seybo ld oral Tablet 00:00: MOUTH FOUR 00 TIMES A DAY NEEDED FOR MUSCLE SPASM Acetaminoph Yes [id number] 1{tbl} Q.25D Take 1 Nona en-Codeine 4-06 tablet by Seyb old 300-30 MG 00:00: mouth oral Tablet 00 every 6 hours as needed for pain Ibuprofen 2021- No [id number] 600mg Q.[id number] Take 1 Nona 600 MG oral 11-08 [id number] tablet Seybold Tablet 00:00: 00:00 3D (600 mg 00 :00 total) by mouth every 8 hours as needed Methocarbam 2021- No [id number] TAKE 1 Nona ol 750 MG 11-08 TABLET BY Seyb old oral Tablet 00:00: 00:00 MOUTH FOUR 00 :00 TIMES A DAY NEEDED FOR MUSCLE SPASM methocarbam 2021- No 1000mg 1,000 mg, Univers oL 10-29 Oral, ity of (ROBAXIN) 08:15: 07:29 ONCE, 1 [place] tablet [place] :[place] dose, On Medical 1,000 mg [place] 10/29/21 at 0315, LAUREN HYDROcodone 2021- No 1{tbl} 1 tablet, Univers -acetaminop 10-29 Oral, ity of hen (NORCO 08:15: 07:29 ONCE, 1 Seth as 5) 5-325 mg 00 :00 dose, On Medi iván tablet 1 [place] Branch tablet 10/29/21 at 0315, LAUREN ketorolac 2021- No 60mg 60 mg, Unive rs (TORADOL) 10-29 Intramuscu ity of injection 08:15: 08:15 lar, ONCE, [place] 60 mg 00 :00 1 dose, On Medical [place] 10/29/21 at 0315, LAUREN ibuprofen Yes [id number] 600mg Take 1 Univers 600 mg 10-29 [id number] tablet by ity of tablet 00:00: mouth [place] 00 every 8 Medical (eight) Branch hours as needed for Pain (scale 4-6). methocarbam Yes [id number] 750mg Take 1 Univers oL 750 mg 10-29 [id number] tablet by ity of tablet 00:00: mouth 4 [place] 00 (four) Medical times Branch daily as needed for Other (muscle spasm). Ibuprofen Yes TAKE 1 Nona 600 MG oral 3-27 TABLET BY Sey bold Tablet 00:00: MOUTH 00 EVERY 8 HOURS NEEDED FOR PAIN (SCALE 4-6). Methocarbam 0 Yes 750mg Q.25D Take 750 Nona ol 750 MG 3-27 mg by Seybold oral Tablet 00:00: mouth 4 00 times daily as needed Ibuprofen 2021-0 Yes TAKE 1 Nona 600 MG oral 3-27 TABLET BY Sey bold Tablet 00:00: MOUTH 00 EVERY 8 HOURS NEEDED FOR PAIN (SCALE 4-6). Methocarbam 0 Yes 750mg Q.25D Take 750 Nona ol 750 MG 3-27 mg by Seybold oral Tablet 00:00: mouth 4 00 times daily as needed Acetaminoph 0 2021- No 1{tbl} Take 1 K elsey en-Codeine 3-29 11-06 tablet by Sey bold #3 300-30 00:00: 00:00 mouth FOR MG oral 00 :00 UP TO 7 Tablet DAYS Methocarbam 2021- No TAKE 1 Sebas sey ol 750 MG 3-27 -06 TABLET BY Seyb old oral Tablet 00:00: 00:00 MOUTH FOUR 00 :00 TIMES A DAY NEEDED FOR MUSCLE SPASM Ibuprofen 2021-2021- No 600mg Q.[id number] Take 600 Nona 600 MG oral 3-29 11-06 [id number] mg by Seybold Tablet 00:00: 00:00 3D mouth 00 :00 every 8 hours as needed acetaminoph 2021-0 2021- No [id number] 1{tbl} Take 1 U nivers en-codeine 3-29 11- tablet by ity of 300-30 mg 00:00: 04:59 mouth [place] tablet 00 :00 every 6 Medical (six) Branch hours as needed for Pain (scale 7-10) for up to 7 days. Indication s: acute pain Albuterol Yes [id number] 1{puff} Q4H Inhale 1 Nona HFA (PROAIR 3-14 puff into Sey bold HFA) 108 00:00: the lungs (90 Base) 00 every 4 MCG/ACT IN hours as AERS needed Fluticasone Yes [id number] 1{puff} Inhale 1 Nona Furoate-Lisandra 3-14 puff into Sey bold anterol 00:00: the lungs (Breo 00 daily Ellipta) 200-25 MCG/INH inhalation AEROSOL POWDER, BREATH ACTIVATED Albuterol 2021-0 Yes [id number] 1{puff} Q4H Inhale 1 Nona HFA (PROAIR 3-14 puff into Sey bold HFA) 108 00:00: the lungs (90 Base) 00 every 4 MCG/ACT IN hours as AERS needed Fluticasone 2021-0 Yes [id number] 1{puff} Inhale 1 Nona Furoate-Lisandra 3-14 puff into Sey bold anterol 00:00: the lungs (Breo 00 daily Ellipta) 200-25 MCG/INH inhalation AEROSOL POWDER, BREATH ACTIVATED Fluticasone 2021-2021- No Inhale Sebas sey Furoate-Lisandra 2-28 02-28 into the Sey bold anterol 09:43: 00:00 lungs (Breo 18 :00 Ellipta) 200-25 MCG/INH inhalation AEROSOL POWDER, BREATH ACTIVATED Levothyroxi 2021-0 2021- No 50ug Take 50 Ke lsey ne Sodium 2-28 02-28 mcg by Seybold 50 MCG oral 09:43: 00:00 mouth Tablet 18 :00 every morning Pantoprazol 2021-0 2- No 40mg Take 40 mg Nona e Sodium 40 2-28 02-28 by mouth Sey bold MG oral 09:43: 00:00 daily Tablet 18 :00 Delayed Response Albuterol 2021-0 2021- No Inhale Kelse y Sulfate 2-28 02-28 into the Seybold (PROAIR HFA 09:43: 00:00 lungs IN) 18 :00 Pantoprazol 2021-0 Yes [id number] 40mg Take 1 Nona e Sodium 40 2-28 tablet (40 Se ybold MG oral 00:00: mg total) Tablet 00 by mouth Delayed daily Response Fluticasone 2021-0 Yes [id number] 1{puff} Inhale 1 Nona Furoate-Lisandra 2-28 puff into Sey bold anterol 00:00: the lungs (Breo 00 daily Ellipta) 200-25 MCG/INH inhalation AEROSOL POWDER, BREATH ACTIVATED Levothyroxi 2021-0 Yes [id number] 50ug Take 1 Nona ne Sodium 2-28 tablet (50 Seyb old 50 MCG oral 00:00: mcg total) Tablet 00 by mouth every morning Albuterol Yes [id number] 1{puff} Q4H Inhale 1 Nona HFA (PROAIR 2-28 puff into Sey bold HFA) 108 00:00: the lungs (90 Base) 00 every 4 MCG/ACT IN hours as AERS needed Pantoprazol Yes [id number] 40mg Take 1 Nona e Sodium 40 2-28 tablet (40 Se ybold MG oral 00:00: mg total) Tablet 00 by mouth Delayed daily Response Levothyroxi Yes [id number] 50ug Take 1 Nona ne Sodium 2-28 tablet (50 Seyb old 50 MCG oral 00:00: mcg total) Tablet 00 by mouth every morning Pantoprazol Yes [id number] 40mg Take 1 Nona e Sodium 40 2-28 tablet (40 Se ybold MG oral 00:00: mg total) Tablet 00 by mouth Delayed daily Response Levothyroxi Yes [id number] 50ug Take 1 Nona ne Sodium 2-28 tablet (50 Seyb old 50 MCG oral 00:00: mcg total) Tablet 00 by mouth every morning levothyroxi Yes 50ug Take 50 Uni vers ne 7-06 mcg by ity of (SYNTHROID) 16:09: mouth [place] 50 mcg 33 every Medical tablet morning. Charles methylPREDN Yes 84mg Take 21 Uni vers ISolone 7-06 tablets by ity of (MEDROL, 00:00: mouth [place] JOHNNIE,) 4 mg 00 SEE-INSTRU Med ical tablets CTIONS. Branch follow package directions Vital Signs Vital Name Observation Time Observation Value Comments Source Systolic blood 2021-12-08 14:53:00 134 mm[Hg] Nona Seybold pressure Diastolic blood 2021-12-08 14:53:00 82 mm[Hg] Kelse y Seybold pressure Heart rate 2021-12-08 14:53:00 68 /min Nona S eybold Body temperature 2021-12-08 14:53:00 36.56 Claire Jane ey Seybold Respiratory rate 2021-12-08 14:53:00 14 /min Jane ey Seybold Body height 2021-12-08 14:53:00 160 cm Nona kelleybold Body weight 2021-12-08 14:53:00 107.956 kg Nona kelleybold BMI 2021-12-08 14:53:00 42.16 kg/m2 Nona S eybold Systolic blood 2021-11-08 14:46:00 136 mm[Hg] Nona Seybold pressure Diastolic blood 2021-11-08 14:46:00 80 mm[Hg] Kelse y Seybold pressure Heart rate 2021-11-08 14:46:00 86 /min Nona S eybold Body temperature 2021-11-08 14:46:00 36.61 Claire Jane ey Seybold Respiratory rate 2021-11-08 14:46:00 14 /min Jane ey Seybold Body height 2021-11-08 14:46:00 160 cm Nona Maza eybold Body weight 2021-11-08 14:46:00 107.956 kg Nona kelleybold BMI 2021-11-08 14:46:00 42.16 kg/m2 Nona kelleybold Systolic blood 2021-10-29 06:21:00 155 mm[Hg] Univer sity of pressure [facility] Diastolic blood 2021-10-29 06:21:00 97 mm[Hg] Unive rsity of [facility] Heart rate 2021-10-29 06:21:00 68 /min [facility] Body temperature 2021-10-29 06:21:00 36.78 Claire [facility] Respiratory rate 2021-10-29 06:21:00 20 /min [facility] Body height 2021-10-29 06:21:00 162.6 cm [facility] Body weight 2021-10-29 06:21:00 104.327 kg [facility] BMI 2021-10-29 06:21:00 39.48 kg/m2 [facility] Oxygen saturation in 2021-10-29 06:21:00 100 /min [facility] blood by [facility] Pulse oximetry Branch Systolic blood 2021-10-02 15:31:00 132 mm[Hg] Nona Seybold pressure Diastolic blood 2021-10-02 15:31:00 82 mm[Hg] Navya Taylor pressure Heart rate 2021-10-02 14:44:00 80 /min Nona eli Body temperature 2021-10-02 14:44:00 36.5 Claire Jane Taylor Respiratory rate 2021-10-02 14:44:00 16 /min Jane Taylor Body height 2021-10-02 14:44:00 160 cm Nona eli Body weight 2021-10-02 14:44:00 107.502 kg Nona eli BMI 2021-10-02 14:44:00 41.98 kg/m2 Nona eli Procedures Procedure Date / Time Performed Performing Clinician Sour e XR CHEST 1 VW 2021-10-29 07:00:21 Candelaria Wilkinson [facility] XR RIBS 3 VW LEFT 2021-10-29 07:00:06 Candelaria Wilkinson [facility] Encounters Start End Encounter Admission Attending Care Care Encounter Source Date/Time Date/Time Type Type Clinicians Facility Department ID 2023-04-12 Outpatient Smith, STLMLC STLMLC [id number] Common 14:32:00 Josephine 43402 [facility] 2023-04-11 Outpatient Smith, STLMLC STLMLC [id number] Common 07:40:00 Josephine 81403 [facility] 2023-02-11 Outpatient Smith, STLMLC STLMLC [id number] Common 08:05:00 Josephine 17672 [facility] 2023-01-04 Outpatient Smith, STLMLC STLMLC [id number] Common 08:36:00 Josephine 40202 [facility] 2022-12-24 Outpatient Smith, STLMLC STLMLC [id number] Common 09:03:00 Josephine 44720 [facility] 2021-08-30 Outpatient Francoise Suarez STLMLC STLMLC [id number] Common 14:29:02 74987 [facility] 2021-08-30 Outpatient Suarez, Na STLMLC STLMLC [id number] Common 14:28:28 85824 [facility] 2021-08-30 Outpatient Suarez, Na STLMLC STLMLC [id number] 2 Common 13:58:22 [id number] [facility] 2021-08-30 Outpatient Suarez, Na STLMLC STLMLC [id number] Common 11:58:27 11311 [facility] 2021-08-30 Outpatient Suarez, Na STLMLC STLMLC [id number] 2 Common 11:57:55 [id number] [facility] 2021-08-30 Outpatient Suarez, Na STLMLC STLMLC [id number] 2 Common 11:32:43 [id number] [facility] 2021-08-30 Outpatient Suarez, Na STLMLC STLMLC [id number] 2 Common 11:19:24 [id number] [facility] 2022-12-27 2022-12-27 Outpatient NONA SCHAEFER [id number] Nona 00:00:00 00:00:00 DANII dominguez 2022-01-11 2022-01-11 Outpatient NONA SCHAEFER [id number] Nona 00:00:00 00:00:00 DANII Shearerol d 2022-01-11 2022-01-11 Outpatient NONA SCHAEFER [id number] Nona 00:00:00 00:00:00 DANII Shearerol alberto 2021-12-18 2021-12-18 Outpatient NONA SCHAEFER [id number] Nona 00:00:00 00:00:00 DANII Seybol d 2021-12-08 2021-12-08 Office Temo Schaefer [id number] Nona 10:00:00 10:15:00 Visit Danii Kim [id number] Se jaileigh Johnson [id number] 2021-11-08 2021-11-08 Office Temo Schaefer [id number] Nona 10:00:00 10:30:00 Visit Danii Kim [id number] Se ybold Somogyi [id number] 2021-11-06 2021-11-06 Outpatient NONA GALEANO [id number] Nona 00:00:00 00:00:00 IRWIN Seybol d 2021-10-29 2021-10-29 Emergency [facility] [id number] Univers 01:20:00 03:15:00 Candelaria JULIO [id number] i ty [facility] [id number] [facility] [id number] [address] 2021-10-29 2021-10-29 [facility] [id number] Univers 01:20:00 03:15:00 CANDELARIA leon [facility] 2021-10-16 2021-10-16 Outpatient NONA SCHAEFER [id number] Nona 00:00:00 00:00:00 DANII Seybol d 2021-10-16 2021-10-16 Outpatient NONA SCHAEFER [id number] Nona 00:00:00 00:00:00 DANII Seybol d 2021-10-16 2021-10-16 Outpatient NONA SCHAEFER [id number] Nona 00:00:00 00:00:00 DANII Seybol d 2021-10-02 2021-10-02 Outpatient LAB90 NONA VEGA [id number] Nona 10:15:00 10:15:00 Seybol d 2021-10-02 2021-10-02 Office Temo Galeano [id number] Nona 09:00:00 10:00:00 Visit Irwin Kim [id number] Se ybold [id number] 2021-09-25 2021-09-25 Outpatient NONA GALEANO [id number] Nona 09:30:00 09:30:00 IRWIN Seybol d 2021-09-11 2021-09-11 Outpatient NONA GAELANO [id number] Nona 09:30:00 09:30:00 IRWIN dominguez Results This patient has no known results.
--- NOTE | 2023-06-10 11:40 | EDPHYS ---
Physician Documentation [facility] Name: Tiffany Kim Age: 63 yrs Sex: Female : 1960 Arrival Date: 06/10/2023 Time: 11:19 Bed IW2 Private MD: ED Physician David Welsh HPI: 06/10 11:37 This 63 yrs old Female presents to ER via Ambulatory with complaints of Ear ec2 Pain. 11:38 Patient arrives today due to concern for left ear pain. States that she been having ec2 pain for approximately 1 week, states that she is having a pressure-like sensation as well as ringing in the ear. Patient reports no fevers or chills, no nausea or vomiting. Patient reports that she has not noted any rash on the left side of the face. Reports no medication allergies.. Historical: - Allergies: 11:29 No Known Allergies; iw - PMHx: 11:29 Asthma; Hypothyroidism; iw - PSHx: 11:30 hysterectomy; Cholecystectomy; iw - Immunization history:: Adult Immunizations up to date. - Social history:: Smoking status: Patient denies any tobacco usage or history of. ROS: 11:38 Constitutional: as per hpi ec2 Exam: 11:38 Constitutional: GEN: NAD Head: atraumatic Eyes: EOMI Ears: External ears are normal. ec2 left TM with serous fluid, minimal erythema appreciated, No rash noted to the external ear or to the face. CV: regular rate LUNGS: no respiratory distress ABD: non-distended SKIN: no evidence of rashes MSK: no evidence of trauma NEURO: moves all extremities equally no rash appreciated, Vital Signs: 11:28 Pulse 65; Resp 16; Temp 98.6; Pulse Ox 98% on R/A; iw 11:30 BP 173 / 74; Pulse 62; iw MDM: 11:23 Patient medically screened. ec2 11:38 Data reviewed: vital signs. ED course: Patient arrives today due to concern for left ec2 ear concerns. Examination remarkable for ear findings as noted above. Presentation consistent with acute otitis media. Low suspicion for herpes zoster oticus given lack of rash. Low suspicion for deep space infection. Accordingly will defer lab work or imaging. Will discharged home with prescription for antibiotics, return precautions given.. Administered Medications: No medications were administered Disposition Summary: 06/10/23 11:40 Discharge Ordered Notes: Location: Home ec2 Condition: Stable ec2 Diagnosis - Acute serous otitis media, left ear ec2 Discharge Instructions: - Discharge Summary Sheet ec2 - Otitis Media, Adult ec2 Forms: - Medication Reconciliation Form ec2 - Thank You Letter ec2 - Antibiotic Education ec2 - Prescription Opioid Use ec2 - Patient Portal Instructions ec2 - Leadership Thank You Letter ec2 Prescriptions: - Amoxicillin 875 mg Oral Tablet - take 1 tablet ORAL route every 12 hours for 10 days; 20 tablet; Refills: 0, ec2 Product Selection Permitted Signatures: Shereen Putnam RN RN iw Magali Farrell RN RN ll1 David Welsh MD MD ec2
--- NOTE | 2023-06-10 11:40 | ER ---
Nurse's Notes [facility] Name: Tiffany Kim Age: 63 yrs Sex: Female : 1960 Arrival Date: 06/10/2023 Time: 11:19 Bed IW2 Private MD: Diagnosis: Acute serous otitis media, left ear Presentation: 06/10 11:28 Chief complaint: Patient states: left ear pain since Saturday. Coronavirus screen: At iw this time, the client does not indicate any symptoms associated with coronavirus-19. Ebola Screen: Patient negative for fever greater than or equal to 101.5 degrees Fahrenheit, and additional compatible Ebola Virus Disease symptoms Patient denies exposure to infectious person. Patient denies travel to an Ebola-affected area in the 21 days before illness onset. No symptoms or risks identified at this time. Initial Sepsis Screen: Does the patient meet any 2 criteria? No. Patient's initial sepsis screen is negative. Does the patient have a suspected source of infection? No. Patient's initial sepsis screen is negative. Risk Assessment: Do you want to hurt yourself or someone else? Patient reports no desire to harm self or others. Onset of symptoms was June 09, 2023. 11:28 Method Of Arrival: Ambulatory iw 11:28 Acuity: RUBI 4 iw Historical: - Allergies: 11:29 No Known Allergies; iw - PMHx: 11:29 Asthma; Hypothyroidism; iw - PSHx: 11:30 hysterectomy; Cholecystectomy; iw - Immunization history:: Adult Immunizations up to date. - Social history:: Smoking status: Patient denies any tobacco usage or history of. Screenin:31 [facility] ED Fall Risk Assessment (Adult) Score/Fall Risk Level 0 - 2 = Low Risk. Abuse iw screen: Denies threats or abuse. Denies injuries from another. Nutritional screening: No deficits noted. Tuberculosis screening: No symptoms or risk factors identified. Assessment: 11:30 General: Appears in no apparent distress. Behavior is calm, cooperative. Pain: iw Complains of pain in left ear. Neuro: Level of Consciousness is awake, alert, obeys commands, Oriented to person, place, time, situation, Moves all extremities. Full function. Cardiovascular: Patient's skin is warm and dry. Respiratory: Respiratory effort is even, unlabored, Respiratory pattern is regular, symmetrical. EENT: Ear canal. Derm: Skin is intact, is healthy with good turgor. 11:57 Reassessment: No changes from previously documented assessment. Patient and/or family ll1 updated on plan of care and expected duration. Pain level reassessed. Patient is alert, oriented x 3, equal unlabored respirations, skin warm/dry/pink. Vital Signs: 11:28 Pulse 65; Resp 16; Temp 98.6; Pulse Ox 98% on R/A; iw 11:30 BP 173 / 74; Pulse 62; iw ED Course: 11:23 Patient arrived in ED. im 11:23 David Welsh MD is Attending Physician. ec2 11:29 Triage completed. iw 11:31 Shereen Putnam, RN is Primary Nurse. iw 11:31 Patient has correct armband on for positive identification. Provided Education on: . iw 11:31 No provider procedures requiring assistance completed. Patient did not have IV access iw during this emergency room visit. 11:58 Patient placed in an internal wait recliner. ll1 Administered Medications: No medications were administered Medication: 11:31 VIS not applicable for this client. iw Outcome: 11:40 Discharge ordered by . ec2 11:58 Discharged to home ambulatory, ll1 11:58 Condition: stable 11:58 Discharge instructions given to patient, Instructed on discharge instructions, follow up and referral plans. medication usage, Demonstrated understanding of instructions, follow-up care, medications, Prescriptions given X 1, 11:58 Patient left the ED. ll1 Signatures: Shereen Ptunam RN RN Magali Farrell RN RN ll1 Omayra Velasquez David Welsh MD MD ec2
[2023-06-10 12:02] VITALS: TEMP 98.6; O2SAT 98
[2023-06-10 12:04] VITALS: BP 173/74
== END 2023-06-10 11:58 | disposition home or self-care (01) ==
LOC: ER 11:19
DX: H65.02 Acute serous otitis media, left ear (principal)
CPT/HCPCS: 99283

== ENCOUNTER 2023-12-18 16:28 | Emergency (ER) | payer OTHER ==
--- OUTSIDE RECORDS SUMMARY | 2023-12-18 16:31 | XMS REPORT | Continuity of Care Document ---
Author Name Unknown Address [address] [facility] [address] [place] [address] [facility] Address [address] [facility] [place] [address] Care Team Providers Care Heel Builder Name Role Phone Danii Schaefer MD Primary Care Physician Josephine Smith Attending Clinician Unavailable Daniela, Francoise Oropeza Attending Clinician Unavailable DANII SCHAEFER Attending Clinician Danii Frank MD Attending Clinician [phone] IRWIN GALEANO Attending Clinician Unavailable Candelaria Rivera Attending Clinician [phone] CANDELARIA WILKINSON Attending Clinician Unavailable BISHOP Attending Clinician Unavailable Irwin Moreno Attending Clinician [phone] Teddy Smith Admitting Clinician Unavailable CANDELARIA WILKINSON Admitting Clinician Unavailable Payers Payer Name Policy Type Policy Number Effective Date Expirati on Date Source [employer] 2 [id number] 2021 00:00:00 Problems Condition Name Condition Details Condition Category Status Onset Date Resolution Date Last Treatment Date Treating Clinician Comments Source Hypothyroi dism Hypothyroi dism Disease Active 10-02 00:00: 00 Nona Sepacheco Mild persistent asthma without complicati on Mild persistent asthma without complicati on Disease Active 10-02 00:00: 00 Nona Sepacheco Gastroesop hageal reflux disease Gastroesop hageal reflux disease Disease Active 10-02 00:00: 00 Nona Sejaileigh Left knee pain Left knee pain Disease Active 02-07 00:00: 00 [facility] Allergies, Adverse Reactions, Alerts Allergy Name Allergy Type Status Severity Reaction(s) Onset Date Inactive Date Treating Clinician Comments Source NO KNOWN ALLERGIE S Drug Class Active [facility] Social History Social Habit Start Date Stop Date Quantity Comments Source Exposure to SARS-CoV-2 (event) Not sure [facility] Alcohol intake 2021-10-29 00:00:00 2021-10-29 00:00:00 0 /d [facility] Sex Assigned At 1960 00:00:00 1960 00:00:00 [facility] Smoking Status Start Date Stop Date Source Never smoked tobacco Nona Taylor Medications Ordered Medication Name Filled Medication Name Start Date Stop Date Current Medication? Ordering Clinician Indication Dosage Frequency Signature (SIG) Comments Components Source Methocarbam ol 750 MG oral Tablet 12-08 00:00: 00 Yes [id number] TAKE 1 TABLET BY MOUTH FOUR TIMES A DAY NEEDED FOR MUSCLE SPASM Nona Taylor Acetaminoph en-Codeine 300-30 MG oral Tablet 11-08 00:00: 00 Yes [id number] 1{tbl} Q.25D Take 1 tablet by mouth every 6 hours as needed for pain Nona Taylor Ibuprofen 600 MG oral Tablet 11-08 00:00: 00 Yes [id number] 600mg Q.[id number] 3D Take 1 tablet (600 mg total) by mouth every 8 hours as needed Nona Taylor Methocarbam ol 750 MG oral Tablet 11-08 00:00: 00 Yes [id number] TAKE 1 TABLET BY MOUTH FOUR TIMES A DAY NEEDED FOR MUSCLE SPASM Nona Taylor methocarbam oL (ROBAXIN) tablet 1,000 mg 10-29 08:15: 00 10-29 07:29 :00 No 1000mg 1,000 mg, Oral, ONCE, 1 dose, On [place] 10/29/21 at [facility], [facility] HYDROcodone -acetaminop hen (NORCO 5) 5-325 mg tablet 1 tablet 10-29 08:15: 00 10-29 07:29 :00 No 1{tbl} 1 tablet, Oral, ONCE, 1 dose, On [place] 10/29/[address] [place] [address] ketorolac (TORADOL) injection 60 mg 10-29 08:15: 00 10-29 08:15 :00 No 60mg 60 mg, Intramuscu lar, ONCE, 1 dose, On [place] 10/29/[address] [place] [address] Ibuprofen 600 MG oral Tablet 10-29 00:00: 00 Yes TAKE 1 TABLET BY MOUTH EVERY 8 HOURS NEEDED FOR PAIN (SCALE 4-6). Nona Taylor Acetaminoph en-Codeine #3 300-30 MG oral Tablet 10-29 00:00: 00 11-08 00:00 :00 No 1{tbl} Take 1 tablet by mouth FOR UP TO 7 DAYS Nona Taylor Methocarbam ol 750 MG oral Tablet 10-29 00:00: 00 11-08 00:00 :00 No TAKE 1 TABLET BY MOUTH FOUR TIMES A DAY NEEDED FOR MUSCLE SPASM Nona Taylor Albuterol HFA (PROAIR HFA) 108 (90 Base) MCG/ACT IN AERS 10-16 00:00: 00 Yes [id number] 1{puff} Q4H Inhale 1 puff into the lungs every 4 hours as needed Nona Taylor Fluticasone Furoate-Lisandra anterol (Breo Ellipta) 200-25 MCG/INH inhalation AEROSOL POWDER, BREATH ACTIVATED 10-16 00:00: 00 Yes [id number] 1{puff} Inhale 1 puff into the lungs daily Nona pacheco Levothyroxi ne Sodium 50 MCG oral Tablet 10-02 09:43: 18 10-02 00:00 :00 No 50ug Take 50 mcg by mouth every morning Nona Taylor Pantoprazol e Sodium 40 MG oral Tablet Delayed Response 10-02 09:43: 18 10-02 00:00 :00 No 40mg Take 40 mg by mouth daily Nona Taylor Albuterol Sulfate (PROAIR HFA IN) 10-02 09:43: 18 10-02 00:00 :00 No Inhale into the lungs Nona Taylor Fluticasone Furoate-Lisandra anterol (Breo Ellipta) 200-25 MCG/INH inhalation AEROSOL POWDER, BREATH ACTIVATED 10-02 09:43: 18 10-02 00:00 :00 No Inhale into the lungs Nona Taylor Levothyroxi ne Sodium 50 MCG oral Tablet 10-02 00:00: 00 Yes [id number] 50ug Take 1 tablet (50 mcg total) by mouth every morning Nona Taylor Fluticasone Furoate-Lisandra anterol (Breo Ellipta) 200-25 MCG/INH inhalation AEROSOL POWDER, BREATH ACTIVATED 10-02 00:00: 00 Yes [id number] 1{puff} Inhale 1 puff into the lungs daily Nona Taylor Albuterol HFA (PROAIR HFA) 108 (90 Base) MCG/ACT IN AERS 10-02 00:00: 00 Yes [id number] 1{puff} Q4H Inhale 1 puff into the lungs every 4 hours as needed Nona Taylor Pantoprazol e Sodium 40 MG oral Tablet Delayed Response 10-02 00:00: 00 Yes [id number] 40mg Take 1 tablet (40 mg total) by mouth daily Nona Taylor levothyroxi ne (SYNTHROID) 50 mcg tablet 02-07 16:09: 33 Yes 50ug Take 50 mcg by mouth every morning. [facility] methylPREDN ISolone (MEDROL, JOHNNIE,) 4 mg tablets 02-07 00:00: 00 Yes 84mg Take 21 tablets by mouth SEE-INSTRU CTIONS. follow package directions [facility] Vital Signs Vital Name Observation Time Observation Value Comments Link marinelli Systolic blood pressure 2021-12-08 14:53:00 134 mm[Hg] Nona Shearero gulshan Diastolic blood pressure 2021-12-08 14:53:00 82 mm[Hg] Nona Shearero ld Heart rate 2021-12-08 14:53:00 68 /min Navya Taylor Body temperature 2021-12-08 14:53:00 36.56 Claire Nona Taylor Respiratory rate 2021-12-08 14:53:00 14 /min Nona Taylor Body height 2021-12-08 14:53:00 160 cm Jane Taylor Body weight 2021-12-08 14:53:00 107.956 kg Jane Taylor BMI 2021-12-08 14:53:00 42.16 kg/m2 Jane Taylor Systolic blood pressure 2021-11-08 14:46:00 136 mm[Hg] Nona Shearero ld Diastolic blood pressure 2021-11-08 14:46:00 80 mm[Hg] Nona Shearero ld Heart rate 2021-11-08 14:46:00 86 /min Navya Taylor Body temperature 2021-11-08 14:46:00 36.61 Claire Nona Taylor Respiratory rate 2021-11-08 14:46:00 14 /min Nona Taylor Body height 2021-11-08 14:46:00 160 cm Jane Taylor Body weight 2021-11-08 14:46:00 107.956 kg Jane Taylor BMI 2021-11-08 14:46:00 42.16 kg/m2 Jane Taylor Systolic blood pressure 2021-10-29 06:21:00 155 mm[Hg] [facility] Diastolic blood pressure 2021-10-29 06:21:00 97 mm[Hg] [facility] Heart rate 2021-10-29 06:21:00 68 /min [facility] Body temperature 2021-10-29 06:21:00 36.78 Claire [facility] Respiratory rate 2021-10-29 06:21:00 20 /min [facility] Body height 2021-10-29 06:21:[address] [facility] Body weight 2021-10-29 06:21:[address] [facility] BMI 2021-10-29 06:21:00 39.48 kg/m2 [facility] Oxygen saturation in Arterial blood by Pulse oximetry 2021-10-29 06:21:00 100 /min [facility] Systolic blood pressure 2021-10-02 15:31:00 132 mm[Hg] Nona Seybo ld Diastolic blood pressure 2021-10-02 15:31:00 82 mm[Hg] Nona ybo ld Heart rate 2021-10-02 14:44:00 80 /min Kel y ybold Body temperature 2021-10-02 14:44:00 36.5 Claire Nona Kelloggybleigh Respiratory rate 2021-10-02 14:44:00 16 /min Nona Kelloggybleigh Body height 2021-10-02 14:44:00 160 cm Jane kelley Seybleigh Body weight 2021-10-02 14:44:00 107.502 kg Jane ey ybold BMI 2021-10-02 14:44:00 41.98 kg/m2 Jane kelley Seybold Procedures Procedure Date / Time Performed Performing Clinicia n Source XR CHEST 1 VW 2021-10-29 07:00:21 [facility] RIBS 3 VW LEFT 2021-10-29 07:00:06 Candelaria Wilkinson [facility] Encounters Start Date/Time End Date/Time Encounter Type Admission Type Attending Clinicians Care Facility Care Department Encounter ID Source 2023-11-06 09:19:00 Outpatient Josephine Smith [facility] [id number] [facility] 2023-10-31 08:50:00 Outpatient Josephine Smith [facility] [id number] [facility] 2023-10-28 10:45:00 Outpatient SmithCalderoni [facility] [id number] [facility] 2023-10-24 10:43:00 Outpatient SmithCalderoni [facility] [id number] [facility] 2023-07-15 13:16:00 Outpatient SmithCaldreoni [facility] [id number] [facility] 2023-07-12 08:58:00 Outpatient SmithCalderoni [facility] [id number] [facility] 2023-06-11 13:55:00 Outpatient SmithCalderoni [facility] [id number] [facility] 2023-04-12 14:32:00 Outpatient SmithCalderoni [facility] [id number] [facility] 2023-04-11 07:40:00 Outpatient SmithCalderoni [facility]C ST[facility] [id number] [facility] 2023-02-11 08:05:00 Outpatient SmithCalderoni [facility] [id number] [facility] 2023-01-04 08:36:00 Outpatient SmithCalderoni [facility] [id number] [facility] 2022-12-24 09:03:00 Outpatient SmithCalderoni [facility] ST[facility] [id number] [facility] 2021-08-30 14:29:02 Outpatient Daniela Na [facility] ST[facility] [id number] [facility] 2021-08-30 14:28:28 Outpatient Daniela Na [facility] ST[facility] [id number] [facility] 2021-08-30 13:58:22 Outpatient Daniela Na [facility] STL[facility] [id number] [facility] 2021-08-30 11:58:27 Outpatient Francoise Suarez STLOR[facility]ZO STL[facility] [id number] [facility] 2021-08-30 11:57:55 Outpatient Francoise Suarez [facility] [id number] [facility] 2021-08-30 11:32:43 Outpatient Francoise Suarez ST[facility] [id number] [facility] 2021-08-30 11:19:24 Outpatient Francoise Suarez STLMLC STLC [id number] [facility] 2022-12-27 00:00:00 2022-12-27 00:00:00 Outpatient OLIVEDANII LAGOS NONA VEGA [id number] [facility] 2022-01-11 00:00:00 2022-01-11 00:00:00 Outpatient OLIVEDANII LAGOS NONA VEGA [id number] [facility] 2022-01-11 00:00:00 2022-01-11 00:00:00 Outpatient OLIVEDANII LAGOS NONA VEGA [id number] [facility] 2021-12-18 00:00:00 2021-12-18 00:00:00 Outpatient OLIVEDANII LAGOS NONA VEGA [id number] [facility] 2021-12-08 10:00:00 2021-12-08 10:15:00 Office Visit EphrataDanii lagos [facility] [id number] [facility] 2021-11-08 10:00:00 2021-11-08 10:30:00 Office Visit Danii Schaefer [facility] [id number] [facility] 2021-11-06 00:00:00 2021-11-06 00:00:00 Outpatient MICHAELIRWIN Oropeza NONA VEGA [id number] [facility] 2021-10-29 01:20:00 2021-10-29 03:15:00 Emergency Candelaria Wilkinson [facility] [id number] [facility] 2021-10-29 01:20:00 2021-10-29 03:15:00 Emergency X CANDELARIA WILKINSON [facility] ERT [id number] [facility] 2021-10-16 00:00:00 2021-10-16 00:00:00 Outpatient DANII SCHAEFER [id number] [facility] 2021-10-16 00:00:00 2021-10-16 00:00:00 Outpatient DANII SCHAEFER [id number] [facility] 2021-10-16 00:00:00 2021-10-16 00:00:00 Outpatient OLIVE DANII VEGA [id number] [facility] 2021-10-02 10:15:00 2021-10-02 10:15:00 Outpatient LAB90 NONA VEGA [id number] [facility] 2021-10-02 09:00:00 2021-10-02 10:00:00 Office Visit FroylanIrwin Temo Kim [id number] Nona pacheco 2021-09-25 09:30:00 2021-09-25 09:30:00 Outpatient FROYLAN IRWIN VEGA [id number] Nona Taylor 2021-09-11 09:30:00 2021-09-11 09:30:00 Outpatient IRWIN GALEANO [id number] Nona Taylor
--- NOTE | 2023-12-18 17:21 | RAD REPORT ---
EXAM DESCRIPTION: CT - Head Brain Wo Cont - 12/18/2023 5:12 pm CLINICAL HISTORY: Syncope COMPARISON: 2017 TECHNIQUE: Computed axial tomography of the head was obtained. IV contrast was not requested. All CT scans are performed using dose optimization technique as appropriate and may include automated exposure control or mA/KV adjustment according to patient size. FINDINGS: An intracranial bleed is not seen The ventricles are normal in caliber No significant hypodense areas within the brain visualized No extra-axial fluid collection is noted. Fluid within the sinuses/ mastoids is not seen IMPRESSION: No acute intracranial abnormality is seen If patient's symptoms persist MRI of the brain would be recommended
--- NOTE | 2023-12-18 17:54 | RAD REPORT ---
EXAM DESCRIPTION: Yessenia Single View12/18/2023 5:40 pm CLINICAL HISTORY: Syncope COMPARISON: 2018 FINDINGS: The lungs appear clear of acute infiltrate. The heart is normal size IMPRESSION: No acute abnormalities displayed
[2023-12-18 18:01] LABS: Absolute Eosinophils 0.1 K/uL (0-0.5); Absolute Lymphocytes (CBC) 2.2 K/uL (0.7-4.9); Absolute Monocytes 0.7 K/uL (0.1-1.3); Absolute Neutrophil 5.6 K/uL (1.8-8.0); Basophils % 0.6 % (0-1.3); Eosinophils % 1.4 % (0-4.4); Hemoglobin 11.5 g/dL (12.0-15.0); Lymphocytes % 25.3 % (15.3-44.8); MCHC 32.8 g/dL (32.0-36.0); MCV 85.4 fL (80-100); MPV 7.7 fL (7.6-11.3); Monocytes % 7.6 % (3.3-12.3); Neutrophils % 65.1 % (41.7-73.7); Platelets 254 thou/uL (152-406); RBC Red Blood Cell Count 4.09 M/uL (3.86-4.86); Red Cell Distribution Width 15.3 % (12.1-15.2)
[2023-12-18 18:09] LABS: PT Prothrombin Time 12.1 SECONDS (9.5-12.5); PTT, Activated Partial Thromb 29.9 SECONDS (24.3-36.9); Protime INR 1.1
[2023-12-18 18:29] LABS: ALT/SGPT 26 U/L (13-56); Albumin 3.3 g/dL (3.4-5.0); Albumin/Globulin Ratio 0.7 (1.1-1.8); Alkaline Phosphatase 84 U/L (45-117); Anion Gap 5.7 mEq/L (5.0-15.0); BUN Blood Urea Nitrogen 26 mg/dL (7-18); Bicarbonate 28 mEq/L (21-32); Bilirubin Total 0.2 mg/dL (0.2-1.0); Globulin 4.6 g/dL (2.3-3.5); Glomerular Filtration Rate 87 ml/min (=/>90); Glucose Level 107 mg/dL (74-106); Magnesium 2.1 mg/dL (1.6-2.4); Potassium 3.7 mEq/L (3.5-5.1); Protein, Total 7.9 g/dL (6.4-8.2); Sodium Level 138 mEq/L (136-145)
[2023-12-18 18:30] LABS: AST/SGOT < 10 U/L (15-37); Bilirubin Direct < 0.2 mg/dL (0-0.2)
--- NOTE | 2023-12-18 19:02 | RAD REPORT ---
EXAM DESCRIPTION: RAD - Knee Left 3 View - 12/18/2023 5:53 pm CLINICAL HISTORY: Left knee pain FINDINGS: No fracture or dislocation is seen. Moderate osteoarthritis medial compartment If the patient continues to have symptoms to suggest an occult fracture, ligamentous or meniscal inju ry then MRI would recommended
[2023-12-18] MEDS ORDERED: IBUPROFEN 200 MG TAB PO ONE (19:14)
[2023-12-18 19:38] LABS: Sqamous Epithelial <5 /HPF (None Seen); Urine Bacteria <20 /HPF (<20); Urine Microscopic Reflex YN ORDER UMIC; Urine Mucus Slight /HPF (None Seen); Urine RBC <5 /HPF (None Seen); Urine WBC <5 /HPF (<5)
[2023-12-18 19:44] LABS: Specific Gravity 1.027 (1.005-1.030); Urine Bilirubin NEGATIVE (Negative); Urine Blood 1+ (Negative); Urine Clarity Clear (Clear); Urine Color Light-Yellow (Yellow); Urine Glucose NEGATIVE (Negative); Urine Ketones NEGATIVE (Negative); Urine Nitrite NEGATIVE (Negative); Urine Protein NEGATIVE (Negative); Urine Urobilinogen Normal (Normal); Urine pH 5.5 (5.0-7.0)
--- NOTE | 2023-12-18 20:08 | ER ---
Nurse's Notes [facility] Name: Tiffany Kim Age: 63 yrs Sex: Female : 1960 Arrival Date: 12/18/2023 Time: 16:28 Bed 7 Private MD: Diagnosis: Pain in left knee;Syncope Presentation: 12/17 16:44 Chief complaint: Patient states: pt had a syncopal episode yesterday and fell onto her as6 right knee. Coronavirus screen: At this time, the client does not indicate any symptoms associated with coronavirus-19. Ebola Screen: No symptoms or risks identified at this time. Initial Sepsis Screen: Does the patient meet any 2 criteria? No. Patient's initial sepsis screen is negative. Does the patient have a suspected source of infection? No. Patient's initial sepsis screen is negative. Risk Assessment: Do you want to hurt yourself or someone else? Patient reports no desire to harm self or others. Onset of symptoms was December 17, 2023. 16:44 Acuity: RUBI 3 as6 16:44 Method Of Arrival: Wheelchair as6 Historical: - Allergies: 16:44 No Known Allergies; as6 - PMHx: 16:44 Asthma; Hypothyroidism; as6 - PSHx: 16:44 Cholecystectomy; hysterectomy; as6 - Immunization history:: Adult Immunizations up to date. - Infectious Disease History:: Denies. - Social history:: Smoking status: Patient denies any tobacco usage or history of. Screenin:52 [facility] ED Fall Risk Assessment (Adult) History of falling in the last 3 months, rs5 including since admission No falls in past 3 months (0 pts) Confusion or Disorientation No (0 pts) Intoxicated or Sedated No (0 pts) Impaired Gait No (0 pts) Mobility Assist Device Used No (0 pt) Altered Elimination No (0 pt) Score/Fall Risk Level 0 - 2 = Low Risk Oriented to surroundings, Maintained a safe environment. Abuse screen: Denies threats or abuse. Nutritional screening: No deficits noted. Tuberculosis screening: No symptoms or risk factors identified. Assessment: 16:52 General: Appears in no apparent distress. comfortable, Behavior is calm, cooperative. rs5 Pain: Complains of pain in left knee Pain currently is 3 out of 10 on a pain scale. Quality of pain is described as aching, Is continuous. Neuro: Level of Consciousness is awake, alert, obeys commands, Oriented to person, place, time, situation. Cardiovascular: Patient's skin is warm and dry. Rhythm is regular. Respiratory: Airway is patent Respiratory effort is even, unlabored, Respiratory pattern is regular, symmetrical. GI: Abdomen is round non-distended, Abd is soft and non tender X 4 quads. : No signs and/or symptoms were reported regarding the genitourinary system. EENT: No signs and/or symptoms were reported regarding the EENT system. Derm: Skin is intact, Skin is pink, warm \T\ dry. Musculoskeletal: Range of motion: limited in left knee slight bruising noted to left knee. 19:04 Reassessment: Patient appears in no apparent distress at this time. Patient is alert, bp oriented x 3, equal unlabored respirations, skin warm/dry/pink. 20:20 General: Appears in no apparent distress. comfortable, Behavior is calm, cooperative, vc1 appropriate for age. Pain: Complains of pain in left knee Pain does not radiate. Pain currently is 5 out of 10 on a pain scale. Quality of pain is described as aching, Pain began suddenly, Is continuous. Neuro: Level of Consciousness is awake, alert, obeys commands, Oriented to person, place, time, situation. Cardiovascular: Patient's skin is warm and dry. Rhythm is regular. Respiratory: Airway is patent Respiratory effort is even, unlabored, Respiratory pattern is regular, symmetrical. GI: Abdomen is round Abd is soft and non tender X 4 quads. : No signs and/or symptoms were reported regarding the genitourinary system. EENT: No signs and/or symptoms were reported regarding the EENT system. Derm: Skin is intact, is healthy with good turgor, Skin is dry, Skin is pink, warm \T\ dry. Skin temperature is warm. Musculoskeletal: Range of motion: limited in left knee. Vital Signs: 16:43 BP 136 / 73; Pulse 76; Resp 18 S; Temp 98.9(TE); Pulse Ox 95% on R/A; Weight 99.79 kg as6 (R); Height 5 ft. 3 in. (R); Pain 4/10; 18:09 BP 135 / 64 Sitting; Pulse 64; Resp 15; Pulse Ox 100% ; MAP 87 mmHg; bc6 18:09 BP 135 / 69 Supine; Pulse 65; Resp 16; Pulse Ox 99% on R/A; MAP 87 mmHg; bc6 18:09 BP 141 / 79 Standing; Pulse 80; Resp 16; Pulse Ox 100% on R/A; MAP 96 mmHg; bc6 18:58 BP 138 / 70; Pulse 66; Resp 18; Pulse Ox 97% ; bp 19:53 BP 131 / 82; Pulse 64; Resp 17; Pulse Ox 96% ; bp 20:23 BP 138 / 93; Pulse 67; Resp 18; Temp 98; Pulse Ox 99% ; vc1 16:43 Body Mass Index 38.97 (99.79 kg, 160.02 cm) as6 16:43 Pain Scale: Adult as6 18:58 REPOSITIONED CUFF bp ED Course: 16:40 Patient arrived in ED. mg5 16:43 Arm band placed on right wrist. as6 16:45 Macey Kim FNP-C [facility]. kb 16:45 Rob Storey MD is Attending Physician. kb 16:45 Triage completed. as6 16:52 Anton Alvarez, RN is Primary Nurse. bp 16:52 Patient has correct armband on for positive identification. Bed in low position. Call rs5 light in reach. Side rails up X2. 16:52 No provider procedures requiring assistance completed. rs5 17:13 CT Head Brain wo Cont In Process Unspecified. EDMS 17:41 Chest Single View XRAY In Process Unspecified. EDMS 17:41 Knee Left 3 View XRAY In Process Unspecified. EDMS 19:28 Urinalysis w/ reflexes Sent. wm 19:28 Urine collected: clean catch specimen, clear. wm 20:18 IV discontinued, intact, bleeding controlled, No redness/swelling at site. Pressure cm10 dressing applied. 20:20 Provided Education on: Follow-up intstructions. cm10 Administered Medications: 19:26 Drug: Ibuprofen PO 600 mg PO once Route: PO; bp 20:23 Follow up: Response: No adverse reaction cm10 Medication: 18:09 VIS not applicable for this client. rs5 Outcome: 20:08 Discharge ordered by . kb 20:20 Discharged to home via wheelchair, cm10 20:20 Condition: good 20:20 Discharge instructions given to patient, Instructed on discharge instructions, follow up and referral plans. Demonstrated understanding of instructions, follow-up care, 20:23 Patient left the ED. cm10 Signatures: Dispatcher [employer] EDMS Macey Kim, CARLYN PLANOGRAPH OPERATOR-Anton Gamble RN RN bp Zoie Villarreal Ashby, RN RN as6 Stephy Moore RN RN vc1 Xander Gastelum RN RN rs5 Marie He6 Mahsa Covarrubias RN RN cm10 Caro Lopez mg5 Corrections: (The following items were deleted from the chart) 19:03 18:56 Pulse 62bpm; Resp 16bpm; Pulse Ox 99%; bp bp 20:24 18:56 BP 89 / 66; Pulse 62bpm; Resp 16bpm; Pulse Ox 99%; bp vc1
--- NOTE | 2023-12-18 20:08 | EDPHYS ---
Physician Documentation [facility] Name: Tiffany Kim Age: 63 yrs Sex: Female : 1960 Arrival Date: 12/18/2023 Time: 16:28 Bed 7 Private MD: ED Physician Rob Storey HPI: 12/17 20:25 This 63 yrs old Female presents to ER via Wheelchair with complaints of Knee Pain. kb 20:26 Pt is a 63 year old female who presents for left knee pain that started after falling kb onto it yesterday. States she was walking back to her work station from the restroom when she had a syncopal episode. Pt denies chest pian, dizziness. States it happened around 1400 yesterday. Denies hitting head.. Historical: - Allergies: 16:44 No Known Allergies; as6 - PMHx: 16:44 Asthma; Hypothyroidism; as6 - PSHx: 16:44 Cholecystectomy; hysterectomy; as6 - Immunization history:: Adult Immunizations up to date. - Infectious Disease History:: Denies. - Social history:: Smoking status: Patient denies any tobacco usage or history of. ROS: 20:28 Constitutional: As per HPI kb Exam: 19:34 Constitutional: This is a well developed, well nourished patient who is awake, alert, kb and in no acute distress. Head/Face: Normocephalic, atraumatic. ENT: Moist Mucous membranes Cardiovascular: Regular rate Respiratory: Respirations even and unlabored. No increased work of breathing. Talking in full sentences Abdomen/GI: Soft, non-tender. No distention Skin: Warm, dry with normal turgor. Normal color. MS/ Extremity: Pulses equal, no cyanosis. Neurovascular intact. Full, normal range of motion. Neuro: Awake and alert, GCS 15, oriented to person, place, time, and situation. Moves all extremities. Normal gait. 19:34 ECG was reviewed by the Attending Physician. Vital Signs: 16:43 BP 136 / 73; Pulse 76; Resp 18 S; Temp 98.9(TE); Pulse Ox 95% on R/A; Weight 99.79 kg as6 (R); Height 5 ft. 3 in. (R); Pain 4/10; 18:09 BP 135 / 64 Sitting; Pulse 64; Resp 15; Pulse Ox 100% ; MAP 87 mmHg; bc6 18:09 BP 135 / 69 Supine; Pulse 65; Resp 16; Pulse Ox 99% on R/A; MAP 87 mmHg; bc6 18:09 BP 141 / 79 Standing; Pulse 80; Resp 16; Pulse Ox 100% on R/A; MAP 96 mmHg; bc6 18:58 BP 138 / 70; Pulse 66; Resp 18; Pulse Ox 97% ; bp 19:53 BP 131 / 82; Pulse 64; Resp 17; Pulse Ox 96% ; bp 20:23 BP 138 / 93; Pulse 67; Resp 18; Temp 98; Pulse Ox 99% ; vc1 16:43 Body Mass Index 38.97 (99.79 kg, 160.02 cm) as6 16:43 Pain Scale: Adult as6 18:58 REPOSITIONED CUFF bp MDM: 16:45 Patient medically screened. kb 20:28 Differential diagnosis: fracture, strain, arrhythmia, electrolyte abnormality. Data kb reviewed: vital signs, nurses notes. Historians other than the Patient: Spouse/Significant Other: . Counseling: I had a detailed discussion with the patient and/or guardian regarding the historical points, exam findings, and any diagnostic results supporting the discharge/admit diagnosis, lab results, radiology results, the need for outpatient follow up, a family practitioner, to return to the emergency department if symptoms worsen or persist or if there are any questions or concerns that arise at home. 05 16:53 Order name: Basic Metabolic Panel; Complete Time: 18:33 kb 12/17 16:53 Order name: CBC with Diff; Complete Time: 18:05 kb 12/17 16:53 Order name: Hepatic Function; Complete Time: 18:33 kb 12/17 16:53 Order name: Magnesium; Complete Time: 18:33 kb 12/17 16:53 Order name: Protime (+inr); Complete Time: 18:09 kb 12/17 16:53 Order name: Ptt, Activated; Complete Time: 18:09 kb 12/17 16:53 Order name: Troponin High Sensitivity; Complete Time: 18:33 kb 12/17 16:53 Order name: Urinalysis w/ reflexes; Complete Time: 20:00 kb 12/17 16:53 Order name: CT Head Brain wo Cont; Complete Time: 17:23 kb 12/17 16:53 Order name: Chest Single View XRAY; Complete Time: 17:59 kb 12/17 16:53 Order name: Knee Left 3 View XRAY; Complete Time: 19:05 kb 12/17 16:53 Order name: Cardiac monitoring; Complete Time: 18:06 kb 12/17 16:53 Order name: EKG - Nurse/Tech; Complete Time: 18:06 kb 12/17 16:53 Order name: IV Saline Lock; Complete Time: 18:06 kb 12/17 16:53 Order name: Labs collected and sent; Complete Time: 18:06 kb 12/17 16:53 Order name: NPO; Complete Time: 18:06 kb 12/17 16:53 Order name: O2 Per Protocol; Complete Time: 18:06 kb 12/17 16:53 Order name: O2 Sat Monitoring; Complete Time: 18:06 kb 12/17 16:53 Order name: Orthostatics; Complete Time: 18:08 kb EC:34 Rate is 64 beats/min. Rhythm is regular. QRS [place] is Normal. [place] interval is normal at kb 150 msec. QRS interval is normal at 92 msec. QT interval is normal at 402 msec. Administered Medications: 19:26 Drug: Ibuprofen PO 600 mg PO once Route: PO; bp 20:23 Follow up: Response: No adverse reaction cm10 Disposition Summary: 12/18/23 20:08 Discharge Ordered Notes: Location: Home kb Condition: Stable kb Diagnosis - Pain in left knee kb - Syncope kb Followup: kb - With: Emergency Department - When: As needed - Reason: Worsening of condition Followup: kb - With: Private Physician - When: 2 - 3 days - Reason: Recheck today's complaints, Continuance of care, Re-evaluation by your physician Discharge Instructions: - Discharge Summary Sheet kb - Musculoskeletal Pain kb - Syncope, [id number] kb Forms: - Medication Reconciliation Form kb - Antibiotic Education kb - Prescription Opioid Use kb - Patient Portal Instructions kb - Leadership Thank You Letter kb Signatures: Dispatcher [employer] EDUT Macey Kim FNP-C FNP-Anton Gamble, RN RN bp Odell Gardiner, MARTA RN as6 Mahsa Covarrubias RN cm10 Corrections: (The following items were deleted from the chart) 16:53 16:53 BASIC METABOLIC PANEL+C.LAB.BRZ ordered. EDUT EDUT 16:53 16:53 CBC+H.LAB.BRZ ordered. EDMS EDMS 16:53 16:53 HEPATIC FUNCTION+C.LAB.BRZ ordered. EDMS EDMS 16:53 16:53 MAGNESIUM+C.LAB.BRZ ordered. EDMS EDMS 16:53 16:53 PROTIME (+INR)+COAG.LAB.BRZ ordered. EDMS EDMS 16:53 16:53 PTT, ACTIVATED+COAG.LAB.BRZ ordered. EDMS EDMS 16:53 16:53 Troponin High Sensitivity+C.LAB.BRZ ordered. EDMS EDMS 16:53 16:53 Urinalysis+U.LAB.BRZ ordered. EDMS EDMS 16:53 16:53 Head Brain Wo Cont+CT.RAD.BRZ ordered. EDMS EDMS 16:53 16:53 Chest Single View+RAD.RAD.BRZ ordered. EDMS EDMS 16:53 16:53 Knee Left 3 View+RAD.RAD.BRZ ordered. EDMS EDMS
[2023-12-18 20:53] VITALS: TEMP 98.9
[2023-12-18 21:11] VITALS: BP 131/82; O2SAT 96
== END 2023-12-18 20:23 | disposition home or self-care (01) ==
LOC: ER 16:28
DX: M25.562 Pain in left knee (principal); R55 Syncope and collapse
CPT/HCPCS: 36415; 70450; 71045; 80048; 80076; 81001; 83735; 84484; 85025; 85610; 85730; 93005

== ENCOUNTER 2024-03-29 13:38 | Emergency (ER) | payer OTHER ==
--- OUTSIDE RECORDS SUMMARY | 2024-03-29 13:41 | XMS REPORT | Continuity of Care Document ---
Author Name Unknown Address [address] [place] [address] [facility] thconnect Address [address] [place] [address] Care Team Providers Care Interactive Account Manager Name Role Phone SCHUYLER LANG Primary Care Physician Unavailab Josephine Londono Attending Clinician Unavailable Francoise Suarez Attending Clinician Unavailable DANII SCHAEFER Attending Clinician Danii Frank MD Attending Clinician [phone] IRWIN GALEANO Attending Clinician Unavailable Candelaria Rivera Attending Clinician [phone] CANDELARIA WILKINSON Attending Clinician Unavailable LAB90 Attending Clinician Unavailable Irwin Moreno Attending Clinician [phone] Teddy Smith Admitting Clinician Unavailable CANDELARIA WILKINSON Admitting Clinician Unavailable Payers Payer Name Policy Type Policy Number Effective Date Expirati on Date Source [employer] 2 [id number] 2021 00:00:00 Problems Condition Name Condition Details Condition Category Status Onset Date Resolution Date Last Treatment Date Treating Clinician Comments Source Hypothyroi dism Hypothyroi dism Disease Active 10-02 00:00: 00 Nona Sepacheco Mild persistent asthma without complicati on Mild persistent asthma without complicati on Disease Active 10-02 00:00: 00 Nona Brandon Gastroesop hageal reflux disease Gastroesop hageal reflux disease Disease Active 10-02 00:00: 00 Nona pacheco Left knee pain Left knee pain Disease Active 02-07 00:00: 00 [facility] Allergies, Adverse Reactions, Alerts Allergy Name Allergy Type Status Severity Reaction(s) Onset Date Inactive Date Treating Clinician Comments Source NO KNOWN ALLERGIE S Drug Class Active [facility] Social History Social Habit Start Date Stop Date Quantity Comments Source Exposure to SARS-CoV-2 (event) Not sure [facility] Alcohol intake 2021-10-29 00:00:00 2021-10-29 00:00:00 0 /d [facility] Sex Ass[birth year] At 1960 00:00:00 1960 00:00:00 [facility] Smoking Status Start Date Stop Date Source Never smoked tobacco Nona Taylor Medications Ordered Medication Name Filled Medication Name Start Date Stop Date Current Medication? Ordering Clinician Indication Dosage Frequency Signature (SIG) Comments Components Source Methocarbam ol 750 MG oral Tablet 12-08 00:00: 00 Yes [id number] TAKE 1 TABLET BY MOUTH FOUR TIMES A DAY NEEDED FOR MUSCLE SPASM Nona Taylor Acetaminoph en-Codeine 300-30 MG oral Tablet 11-08 00:00: 00 Yes [id number] 1{tbl} Q.25D Take 1 tablet by mouth every 6 hours as needed for pain Nona Taylor Ibuprofen 600 MG oral Tablet 11-08 00:00: 00 Yes [id number] 600mg [id number] 3D Take 1 tablet (600 mg total) by mouth every 8 hours as needed Nona Taylor Methocarbam ol 750 MG oral Tablet 11-08 00:00: 00 Yes [id number] TAKE 1 TABLET BY MOUTH FOUR TIMES A DAY NEEDED FOR MUSCLE SPASM Nona Taylor methocarbam oL (ROBAXIN) tablet 1,000 mg 10-29 08:15: 00 10-29 07:29 :00 No 1000mg 1,000 mg, Oral, ONCE, 1 dose, On 10/29/21 at 031, [facility] HYDROcodone -acetaminop hen (NORCO 5) 5-325 mg tablet 1 tablet 10-29 08:15: 00 10-29 07:29 :00 No 1{tbl} 1 tablet, Oral, ONCE, 1 dose, On 10/29/21 at 031, [facility] ketorolac (TORADOL) injection 60 mg 10-29 08:15: 00 10-29 08:15 :00 No 60mg 60 mg, Intramuscu lar, ONCE, 1 dose, On 10/29/21 at 031, [facility] Ibuprofen 600 MG oral Tablet 10-29 00:00: [...] MCG/ACT IN AERS 10-16 00:00: 00 Yes [id number] 1{puff} Q4H Inhale 1 puff into the lungs every 4 hours as needed Nona Taylor Fluticasone Furoate-Lisandra anterol (Breo Ellipta) 200-25 MCG/INH inhalation AEROSOL POWDER, BREATH ACTIVATED 10-16 00:00: 00 Yes [id number] 1{puff} Inhale 1 puff into the lungs daily Nona Taylor Levothyroxi ne Sodium 50 MCG oral Tablet 10-02 09:43: 18 10-02 00:00 :00 No 50ug Take 50 mcg by mouth every morning Nona Sepacheco Pantoprazol e Sodium 40 MG oral Tablet [...] MCG oral Tablet 10-02 00:00: 00 Yes [id number] 50ug Take 1 tablet (50 mcg total) by mouth every morning Nona Taylor Fluticasone Furoate-Lisandra anterol (Breo Ellipta) 200-25 MCG/INH inhalation AEROSOL POWDER, BREATH ACTIVATED 10-02 00:00: 00 Yes [id number] 1{puff} Inhale 1 puff into the lungs daily Nona Taylor Albuterol HFA (PROAIR HFA) 108 (90 Base) MCG/ACT IN AERS 10-02 00:00: 00 Yes [id number] 1{puff} Q4H Inhale 1 puff into the lungs every 4 hours as needed Nona Taylor Pantoprazol e Sodium 40 MG oral Tablet Delayed Response 10-02 00:00: 00 Yes [id number] 40mg Take 1 tablet (40 mg total) by mouth daily Nona Taylor levothyroxi ne (SYNTHROID) 50 mcg tablet 02-07 16:09: 33 Yes 50ug Take 50 mcg by mouth every morning. [facility] methylPREDN ISolone (MEDROL, JOHNNIE,) 4 mg tablets 02-07 00:00: 00 Yes 84mg Take 21 tablets by mouth SEE-INSTRU CTIONS. follow package directions [facility] Vital Signs Vital Name Observation Time Observation Value Comments S isis Systolic blood pressure 2021-12-08 14:53:00 134 mm[Hg] Nona gaffney Diastolic blood pressure 2021-12-08 14:53:00 82 mm[Hg] [...] blood pressure 2021-11-08 14:46:00 80 mm[Hg] Nona gaffney Heart rate 2021-11-08 14:46:00 86 /min Navya Taylor Body temperature 2021-11-08 14:46:00 36.61 Claire Nona Taylor Respiratory rate 2021-11-08 14:46:00 14 /min Nona Taylor Body height 2021-11-08 14:46:00 160 cm Jane Taylor Body weight 2021-11-08 14:46:00 107.956 kg Jane Taylor BMI 2021-11-08 14:46:00 42.16 kg/m2 Jane kelley Seybleigh Systolic blood pressure 2021-10-29 06:21:00 155 mm[Hg] [facility] Diastolic blood pressure 2021-10-29 06:21:00 97 mm[Hg] [facility] Heart rate 2021-10-29 06:21:00 68 /min Xochitl [facility] Body temperature 2021-10-29 06:21:00 36.78 Claire [facility] Respiratory rate 2021-10-29 06:21:00 20 /min [facility] Body height 2021-10-29 06:21:00 162.6 cm [facility] Body weight 2021-10-29 06:21:00 104.327 kg [facility] BMI 2021-10-29 06:21:00 39.48 kg/m2 [facility] Oxygen saturation in Arterial blood by Pulse oximetry 2021-10-29 06:21:00 100 /min [facility] Systolic blood pressure 2021-10-02 15:31:00 132 mm[Hg] Nona Seybo ld Diastolic blood pressure 2021-10-02 15:31:00 82 mm[Hg] Nona Seybo ld Heart rate 2021-10-02 14:44:00 80 /min Kelse y Seybold Body temperature 2021-10-02 14:44:00 36.5 Claire Nona ybold Respiratory rate 2021-10-02 14:44:00 16 /min Nona Seybold Body height 2021-10-02 14:44:00 160 cm Jane ey Seybold Body weight 2021-10-02 14:44:00 107.502 kg Jane ey Seybold BMI 2021-10-02 14:44:00 41.98 kg/m2 Jane ey Seybold Procedures Procedure Date / Time Performed Performing Clinicia n Source XR CHEST 1 VW 2021-10-29 07:00:21 Candelaria Wilkinson [facility] XR RIBS 3 VW LEFT 2021-10-29 07:00:06 Candelaria Wilkinson [facility] Encounters Start Date/Time End Date/Time Encounter Type Admission Type Attending Clinicians Care Facility Care Department Encounter ID Source 2023-11-06 09:19:00 [facility] [id number] [facility] 2023-10-31 08:50:00 Outpatient Josephine Smith [facility] [id number] [facility] 2023-10-28 10:45:00 Outpatient Josephine Smith [facility] [id number] [facility] 2023-10-24 10:43:00 Outpatient SmithJosephine shaver [facility] [id number] [facility] 2023-07-15 13:16:00 Outpatient SmithJosephine [facility] [id number] [facility] 2023-07-12 08:58:00 Outpatient SmithJosephine [facility] [id number] [facility] 2023-06-11 13:55:00 Outpatient SmithCalderoni [facility] [id number] [facility] 2023-04-12 14:32:00 Outpatient SmithJosephine [facility] [id number] [facility] 2023-04-11 07:40:00 Outpatient SmithJosephine [facility] [id number] [facility] 2023-02-11 08:05:00 Outpatient SmithJosephine shaver [facility] [id number] [facility] 2023-01-04 08:36:00 Outpatient SmithJosephine shaver [facility] [id number] [facility] 2022-12-24 09:03:00 Outpatient SmithJosephine [facility] [id number] [facility] 2021-08-30 14:29:02 Outpatient Daniela, Na [facility] [id number] [facility] 2021-08-30 14:28:28 Outpatient Daniela Na [facility] [id number] [facility] 2021-08-30 13:58:22 Outpatient Daniela Na [facility] [id number] [facility] 2021-08-30 11:58:27 Outpatient Francoise Suarez [facility] [id number] [facility] 2021-08-30 11:57:55 Outpatient Francoise Suarez [facility] [id number] [facility] 2021-08-30 11:32:43 Outpatient Francoise Suarez [facility] [id number] [facility] 2021-08-30 11:19:24 Outpatient Francoise Suarez [facility] [id number] [facility] 2022-12-27 00:00:00 2022-12-27 00:00:00 Outpatient DANII SCHAEFER [id number] [facility] 2022-01-11 00:00:00 2022-01-11 00:00:00 Outpatient DANII SCHAEFER [id number] [facility] 2022-01-11 00:00:00 2022-01-11 00:00:00 Outpatient DANII SCHAEFER [id number] [facility] 2021-12-18 00:00:00 2021-12-18 00:00:00 Outpatient DANII SCHAEFER [id number] [facility] 2021-12-08 10:00:00 2021-12-08 10:15:00 Office Visit Danii Schaefer [place] [id number] [facility] 2021-11-08 10:00:00 2021-11-08 10:30:00 Office Visit Danii Schaefer [id number] [facility] 2021-11-06 00:00:00 2021-11-06 00:00:00 Outpatient IRWIN GALEANO [id number] Nona Brandon 2021-10-29 01:20:00 2021-10-29 03:15:00 Emergency Candelaria Wilkinson [facility] [id number] [facility] 2021-10-29 01:20:00 2021-10-29 03:15:00 Emergency X CANDELARIA WILKINSON [facility] ERT [id number] [facility] 2021-10-16 00:00:00 2021-10-16 00:00:00 Outpatient DANII SCHAEFER [id number] [facility] 2021-10-16 00:00:00 2021-10-16 00:00:00 Outpatient DANII SCHAEFER [id number] [facility] 2021-10-16 00:00:00 2021-10-16 00:00:00 Outpatient DANII SCHAEFER [id number] [facility] 2021-10-02 10:15:00 2021-10-02 10:15:00 Outpatient LAB90 NONA VEGA [id number] [facility] 2021-10-02 09:00:00 2021-10-02 10:00:00 Office Visit Froylan Irwin Kim [id number] Nona Taylor 2021-09-25 09:30:00 2021-09-25 09:30:00 Outpatient FROYLAN IRWIN VEGA [id number] Nona Taylor 2021-09-11 09:30:00 2021-09-11 09:30:00 Outpatient IRWIN GALEANO [id number] Nona Taylor
[2024-03-29] MEDS ORDERED: MORPHINE 4 MG/ML SYR ONE (17:27)
[2024-03-29] MEDS ORDERED: dexAMETHasone 10 MG/ML VIAL ONE (17:28)
[2024-03-29] MEDS ORDERED: KETOROLAC 30 MG/ML INJ ONE (17:28)
--- NOTE | 2024-03-29 17:54 | RAD REPORT ---
EXAM DESCRIPTION: US - Extremity Venous Uni Ltd - 03/29/2024 4:59 pm CLINICAL HISTORY: Pain COMPARISON: None. TECHNIQUE: Real-time sonographic evaluation of the right lower extremity deep venous system was perf ormed. FINDINGS: Normal compressibility, flow augmentation, phasic flow and spontaneous flow is identified in the right lower extremity deep venous system. No intraluminal filling defects seen. IMPRESSION: No DVT in the right lower extremity.
--- NOTE | 2024-03-29 18:29 | RAD REPORT ---
EXAM DESCRIPTION: RAD - Femur Right - 03/29/2024 5:52 pm CLINICAL HISTORY: PAIN COMPARISON: <Comparisons> TECHNIQUE: Right femur, 2 views. FINDINGS: No fracture is identified. Mild knee degenerative changes with mild medial weight-bearing joint space loss. There is no dislocation or periosteal reaction noted. No acute or suspicious bony f inding. IMPRESSION: No acute osseous abnormality. Mild knee joint degenerative changes.
--- NOTE | 2024-03-29 18:30 | RAD REPORT ---
EXAM DESCRIPTION: RAD - Tib Fib Right - 03/29/2024 5:52 pm CLINICAL HISTORY: PAIN COMPARISON: <Comparisons> TECHNIQUE: Right tibia and fibula, 2 views. FINDINGS: No fracture is identified. There is no dislocation or periosteal reaction noted. No acute or suspicious bony finding. Mild tricompartmental knee degenerative changes. No foreign body or other soft tissue abnormality. IMPRESSION: No acute osseus abnormality. Mild tricompartmental knee degenerative changes.
[2024-03-29] MEDS ORDERED: ONDANSETRON 4 MG (ODT) TAB ONE (18:38)
--- NOTE | 2024-03-29 19:23 | EDPHYS ---
Physician Documentation [facility] Name: Tiffany Kim Age: 63 yrs Sex: Female : 1960 Arrival Date: 03/29/2024 Time: 13:38 Bed 10 Private MD: ED Physician Tamiko Sanches HPI: 03/29 16:20 This 63 yrs old Female presents to ER via Wheelchair with complaints of Leg Pain. cp 16:20 The patient presents with pain, that is acute. The complaints affect the right leg. cp Onset: The symptoms/episode began/occurred 2 day(s) ago. 16:20 Context: resulted from an unknown cause, Problem is a result from a previous injury: cp No. Modifying factors: the symptoms are aggravated by movement, weight bearing. Associated signs and symptoms: Pertinent positives: calf tenderness, Pertinent negatives low back pain, abdominal pain. 16:20 Severity of symptoms: in the emergency department the symptoms are unchanged, despite cp home interventions. Historical: - Allergies: 14:20 No Known Allergies; aa5 - PMHx: 14:17 Asthma; Hypothyroidism; aa5 - PSHx: 14:17 Cholecystectomy; hysterectomy; aa5 - Immunization history:: Adult Immunizations unknown. - Infectious Disease History:: Denies. - Social history:: Smoking status: Patient denies any tobacco usage or history of. ROS: 16:25 MS/extremity: Positive for pain, tenderness, of the right leg, Negative for injury or cp acute deformity, decreased range of motion, paresthesias, 16:25 Constitutional: Negative for body aches, chills, fever, cp 16:25 Neck: Negative for pain with movement, pain at rest, stiffness, 16:25 Cardiovascular: Negative for chest pain, edema, palpitations, 16:25 Respiratory: Negative for cough, shortness of breath, wheezing, 16:25 Abdomen/GI: Negative for abdominal pain, vomiting, diarrhea, constipation, 16:25 Skin: Negative for cellulitis, rash, 16:25 Neuro: Negative for altered mental status, dizziness, headache, numbness, weakness, 16:25 All other systems are negative, Exam: 16:30 Constitutional: The patient appears in no acute distress, alert, awake, cp non-diaphoretic, non-toxic, well developed, well nourished, obese, 16:30 Head/Face: Normocephalic, atraumatic. cp 16:30 Eyes: Periorbital structures: appear normal, Conjunctiva: normal, no exudate, no injection, Sclera: no appreciated abnormality, Lids and lashes: appear normal, bilaterally, 16:30 ENT: External ear(s): are unremarkable, Nose: is normal, Mouth: Lips: moist, Oral mucosa: moist, Posterior pharynx: Airway: no evidence of obstruction, patent, 16:30 Neck: ROM/movement: is normal, is supple, without pain, no range of motions limitations, 16:30 Chest/axilla: Inspection: normal, 16:30 Cardiovascular: Rate: normal, Rhythm: regular, Pulses: Pulses are 2+ in right dorsalis pedis artery. Edema: is not appreciated, JVD: is not appreciated, 16:30 Respiratory: the patient does not display signs of respiratory distress, Respirations: normal, no use of accessory muscles, no retractions, labored breathing, is not present, Breath sounds: are clear throughout, no decreased breath sounds, no stridor, no wheezing, 16:30 Abdomen/GI: Inspection: abdomen appears normal, Palpation: abdomen is soft and non-tender, in all quadrants, 16:30 Back: pain, is absent, ROM is normal, 16:30 Musculoskeletal/extremity: Extremities: noted in the right leg: tenderness and pain to mid thigh extending down leg, no gross swelling, skin warm with no rashes and/or cellulitis, ROM: limited passive range of motion due to pain, in the right knee, the right leg Severe pain noted. 16:30 Neuro: Orientation: to person, place \T\ time. Mentation: is normal, Vital Signs: 14:18 BP 149 / 68; Pulse 64; Resp 18 S; Temp 97.5(TE); Pulse Ox 100% on R/A; Weight 104.33 kg aa5 (R); Height 5 ft. 3 in. (R); 19:41 BP 137 / 61; Pulse 66; Resp 18; Pulse Ox 100% ; pc2 14:18 Body Mass Index 40.74 (104.33 kg, 160.02 cm) aa5 MDM: 14:44 Patient medically screened. cp 18:00 Differential diagnosis: cellulitis, dvt, joint pain, musculoskeletal pain. cp 19:21 Data reviewed: vital signs, nurses notes, radiologic studies, plain films, ultrasound, cp and as a result, I will discharge patient. 19:21 I considered the following discharge prescriptions or medication management in the cp emergency department Medications were administered in the Emergency Department. See MAR. Counseling: I had a detailed discussion with the patient and/or guardian regarding the historical points, exam findings, and any diagnostic results supporting the discharge/admit diagnosis, radiology results, the need for outpatient follow up, a family practitioner, to return to the emergency department if symptoms worsen or persist or if there are any questions or concerns that arise at home. Response to treatment: the patient's symptoms have markedly improved after treatment, and as a result, I will discharge patient. 03/29 16:12 Order name: XRAY Femur RIGHT; Complete Time: 19:14 cp 03/29 19:14 Interpretation: Report reviewed. cp 03/29 16:12 Order name: XRAY Tib Fib RIGHT; Complete Time: 19:14 cp 03/29 19:15 Interpretation: Report reviewed. cp 03/29 16:12 Order name: US Extremity Venous Unilateral Ltd; Complete Time: 19:14 cp 03/29 19:15 Interpretation: Report reviewed. cp Administered Medications: 17:49 Drug: morphine IM 6 mg IM once Route: IM; Site: left ventrogluteal; hb 19:41 Follow up: Response: No adverse reaction; Pain is decreased pc2 17:49 Drug: Dexamethasone IM 10 mg IM once Route: IM; Site: left deltoid; hb 19:41 Follow up: Response: No adverse reaction pc2 17:49 Drug: Ketorolac IM 30 mg IM once Route: IM; Site: right deltoid; hb 19:41 Follow up: Response: No adverse reaction; Pain is decreased pc2 18:42 Drug: Ondansetron PO 4 mg PO once Route: PO; hb 19:41 Follow up: Response: No adverse reaction pc2 19:39 Drug: Lidoderm Topical Patch 5 % (700 mg/patch) 1 patches Topical once; leave on for 12 pc2 hours; cover most painful area; may cut into smaller pieces {Note: placed on posterior right calf.} Route: Topical; Site: right thigh; Disposition Summary: 03/29/24 19:22 Discharge Ordered Notes: Location: Home cp Problem: new cp Symptoms: have improved cp Condition: Stable cp Diagnosis - Pain in right leg cp Followup: cp - With: Private Physician - When: 5 - 6 days - Reason: Recheck today's complaints Discharge Instructions: - Discharge Summary Sheet cp - Musculoskeletal Pain cp - Heat Therapy cp - Form - Return To Work pc2 Forms: - Medication Reconciliation Form cp - Antibiotic Education cp - Prescription Opioid Use cp - Patient Portal Instructions cp - Leadership Thank You Letter cp Prescriptions: - Diclofenac Sodium 75 mg Oral Tablet Sustained Release - take 1 tablet ORAL route 2 times per day; 30 tablet; Refills: 0, Product cp Selection Permitted - methocarbamol 750 mg Oral tablet - take 1 tablet ORAL route every 8 hours; 30 tablet; Refills: 0, Product cp Selection Permitted Signatures: Dispatcher [employer] EDBrenda Reyes, RN RN aa5 Dane Edward PA PA cp Natty Solorio, RN RN Rosemary Stapleton, RN RN pc2 Corrections: (The following items were deleted from the chart) 16:12 16:12 Tib Fib Right+RAD.RAD.BRZ ordered. EDMS EDMS 16:13 16:12 Extremity Venous Uni Ltd+US.RAD.BRZ ordered. EDMS EDMS
--- NOTE | 2024-03-29 19:23 | ER ---
[facility] Name: Tiffany Kim Age: 63 yrs Sex: Female : 1960 Arrival Date: 03/29/2024 Time: 13:38 Bed 10 Private MD: Diagnosis: Pain in right leg Presentation: 03/29 14:18 Chief complaint: Patient states: "my leg was hurting last night which was nothing aa5 unusual but today I can barely walk on it". Pt c/o pain to right leg. Coronavirus screen: At this time, the client does not indicate any symptoms associated with coronavirus-19. Ebola Screen: Patient denies travel to an Ebola-affected area in the 21 days before illness onset. Initial Sepsis Screen: Does the patient meet any 2 criteria? No. Patient's initial sepsis screen is negative. Does the patient have a suspected source of infection? No. Patient's initial sepsis screen is negative. Risk Assessment: Do you want to hurt yourself or someone else? Patient reports no desire to harm self or others. Onset of symptoms was March 2024. 14:18 Acuity: RUBI 4 aa5 14:18 Method Of Arrival: Wheelchair aa5 Historical: - Allergies: 14:20 No Known Allergies; aa5 - PMHx: 14:17 Asthma; Hypothyroidism; aa5 - PSHx: 14:17 Cholecystectomy; hysterectomy; aa5 - Immunization history:: Adult Immunizations unknown. - Infectious Disease History:: Denies. - Social history:: Smoking status: Patient denies any tobacco usage or history of. Screenin:15 [facility] ED Fall Risk Assessment (Adult) History of falling in the last 3 months, hb including since admission No falls in past 3 months (0 pts) Confusion or Disorientation No (0 pts) Intoxicated or Sedated No (0 pts) Impaired Gait No (0 pts) Mobility Assist Device Used No (0 pt) Altered Elimination No (0 pt) Score/Fall Risk Level 0 - 2 = Low Risk Oriented to surroundings, Maintained a safe environment, Educated pt \\T\\ family on fall prevention, incl call for assistance when getting out of bed, Assessed \\T\\ reinforced patient's understanding of fall precautions. 17:15 Abuse screen: Denies threats or abuse. Denies injuries from another. Nutritional hb screening: No deficits noted. Tuberculosis screening: No symptoms or risk factors identified. Assessment: 17:49 General: Appears in no apparent distress. Behavior is calm, cooperative. Pain: Pain hb currently is 7 out of 10 on a pain scale. Neuro: Level of Consciousness is awake, alert, obeys commands, Oriented to person, place, time, situation. Cardiovascular: Patient's skin is warm and dry. Pulses are 3+ in right dorsalis pedis artery and left dorsalis pedis artery. Respiratory: Respiratory effort is even, unlabored, Respiratory pattern is regular, symmetrical. GI: No signs and/or symptoms were reported involving the gastrointestinal system. : No signs and/or symptoms were reported regarding the genitourinary system. EENT: No signs and/or symptoms were reported regarding the EENT system. Derm: Skin is pink, warm \\T\\ dry. Musculoskeletal: Reports right leg pain. 18:14 Reassessment: Patient appears in no apparent distress at this time. Patient and/or hb family updated on plan of care and expected duration. Pain level reassessed. Patient is alert, oriented x 3, equal unlabored respirations, skin warm/dry/pink. Vital Signs: 14:18 BP 149 / 68; Pulse 64; Resp 18 S; Temp 97.5(TE); Pulse Ox 100% on R/A; Weight 104.33 kg aa5 (R); Height 5 ft. 3 in. (R); 19:41 BP 137 / 61; Pulse 66; Resp 18; Pulse Ox 100% ; pc2 14:18 Body Mass Index 40.74 (104.33 kg, 160.02 cm) aa5 ED Course: 13:41 Patient arrived in ED. ra3 14:17 Arm band placed on. aa5 14:19 Triage completed. aa5 14:44 Dane Edward PA is PHCP. cp 14:44 Tamiko Sanches MD is Attending Physician. cp 16:54 US Extremity Venous Unilateral Ltd In Process Unspecified. EDMS 17:15 Patient has correct armband on for positive identification. Provided Education on: hb tests, result times, medications, use of call light. 17:15 No provider procedures requiring assistance completed. Patient did not have IV access hb during this emergency room visit. 17:26 Natty Solorio, RN is Primary Nurse. hb 17:54 XRAY Femur RIGHT In Process Unspecified. EDMS 17:54 XRAY Tib Fib RIGHT In Process Unspecified. EDMS Administered Medications: 17:49 Drug: morphine IM 6 mg IM once Route: IM; Site: left ventrogluteal; hb 19:41 Follow up: Response: No adverse reaction; Pain is decreased pc2 17:49 Drug: Dexamethasone IM 10 mg IM once Route: IM; Site: left deltoid; hb 19:41 Follow up: Response: No adverse reaction pc2 17:49 Drug: Ketorolac IM 30 mg IM once Route: IM; Site: right deltoid; hb 19:41 Follow up: Response: No adverse reaction; Pain is decreased pc2 18:42 Drug: Ondansetron PO 4 mg PO once Route: PO; hb 19:41 Follow up: Response: No adverse reaction pc2 19:39 Drug: Lidoderm Topical Patch 5 % (700 mg/patch) 1 patches Topical once; leave on for 12 pc2 hours; cover most painful area; may cut into smaller pieces {Note: placed on posterior right calf.} Route: Topical; Site: right thigh; Medication: 17:49 VIS not applicable for this client. hb Outcome: 19:22 Discharge ordered by MD. cp 19:42 Discharged to home ambulatory, with family, pc2 19:42 Condition: stable 19:42 Discharge instructions given to patient, family, Instructed on discharge instructions, follow up and referral plans. medication usage, Demonstrated understanding of instructions, follow-up care, medications, Prescriptions given X 2, 19:52 Patient left the ED. pc2 Signatures: Dispatcher [employer] EDMS Brenda Guerin RN RN aa5 Dane Edward PA PA cp Baxter, Heather, RN RN Sari Ortiz ra3 Rosemary Stapleton, RN RN pc2 Corrections: (The following items were deleted from the chart) 14:20 14:18 Pulse 64bpm; Resp 18bpm; Spontaneous; Pulse Ox 100% RA; Temp 97.5F Temporal; aa5 104.33 kg Reported; Height 5 ft. 3 in. Reported; BMI: 40.7; aa5
[2024-03-29] MEDS ORDERED: LIDOCAINE 4% PATCH ONE (19:27)
[2024-03-29 20:07] VITALS: TEMP 97.5; O2SAT 100
[2024-03-29 20:09] VITALS: BP 137/61
== END 2024-03-29 19:52 | disposition home or self-care (01) ==
LOC: ER 13:38
DX: M79.604 Pain in right leg (principal)
CPT/HCPCS: 73552; 73590; 93971; 96372; 99284; Q0162; J2001; J1100

== ENCOUNTER 2024-07-23 00:13 | Emergency (ER) | payer OTHER ==
--- OUTSIDE RECORDS SUMMARY | 2024-07-23 00:16 | XMS REPORT | Continuity of Care Document ---
Author Name Unknown Address [address] [facility] [address] [place] [address] [facility] thconnect Address [address] [facility] [address] [place] [address] Care Team Providers Care Electric Motor Analyst Name Role Phone Danii Schaefer MD Primary Care Physician Josephine Smith Attending Clinician Unavailable Francoise Suarez Attending Clinician Unavailable DANII SCHAEFER Attending Clinician Danii Frank MD Attending Clinician [phone] IRWIN GALEANO Attending Clinician Unavailable CANDELARIA WILKINSON Attending Clinician Unavailable Candelaria Rivera Attending Clinician [phone] [id number] Attending Clinician Unavailable Irwin Moreno Attending Clinician [phone] Teddy Smith Admitting Clinician Unavailable CANDELARIA WILKINSON Admitting Clinician Unavailable Payers Payer Name Policy Type Policy Number Effective Date Expirati on Date Source CIGNA 2 [id number] 2021 00:00:00 CIGNA II [id number] 2021 00:00:00 Problems Condition Name Condition Details Condition Category Status Onset Date Resolution Date Last Treatment Date Treating Clinician Comments Source Hypothyroi dism Hypothyroi dism Disease Active 10-02 00:00: 00 Nona Taylor Mild persistent asthma without complicati on Mild persistent asthma without complicati on Disease Active 10-02 00:00: 00 Nona Taylor Gastroesop hageal reflux disease Gastroesop hageal reflux disease Disease Active 10-02 00:00: 00 Nona Taylor Left knee pain Left knee pain Disease Active 02-07 00:00: 00 [facility] Allergies, Adverse Reactions, Alerts Allergy Name Allergy Type Status Severity Reaction(s) Onset Date Inactive Date Treating Clinician Comments Source NO KNOWN ALLERGIE S Drug Class Active [facility] Social History Social Habit Start Date Stop Date Quantity Comments Source Exposure to SARS-CoV-2 (event) Not sure [facility] Alcohol intake 2021-10-29 00:00:00 2021-10-29 00:00:00 0 /d [facility] Sex Ass[birth year] At 1960 00:00:00 1960 00:00:00 [facility] Smoking Status Start Date Stop Date Source Never smoked tobacco Nona Taylor Medications Ordered Medication Name Filled Medication Name Start Date Stop Date Current Medication? Ordering Clinician Indication Dosage Frequency Signature (SIG) Comments Components Source Methocarbam ol 750 MG oral Tablet 12-08 00:00: 00 Yes [id number] TAKE 1 TABLET BY MOUTH FOUR TIMES A DAY NEEDED FOR MUSCLE SPASM Nona Taylor Acetaminoph en-Codeine 300-30 MG oral Tablet 11-08 00:00: 00 Yes [id number] 1{tbl} Q.25D Take 1 tablet by mouth every 6 hours as needed for pain Nona Taylor Ibuprofen 600 MG oral Tablet 11-08 00:00: 00 Yes [id number] 600mg Q.[id number] 3D Take 1 tablet (600 mg total) by mouth every 8 hours as needed Nona Taylor Methocarbam ol 750 MG oral Tablet -06 00:00: 00 Yes [id number] TAKE 1 TABLET BY MOUTH FOUR TIMES A DAY NEEDED FOR MUSCLE SPASM Nona Taylor methocarbam oL (ROBAXIN) tablet 1,000 mg 10-29 08:15: 00 10-29 07:29 :00 No 1000mg 1,000 mg, Oral, ONCE, 1 dose, On [place] 10/29/21 at 031, [facility] HYDROcodone -acetaminop hen (NORCO 5) 5-325 mg tablet 1 tablet 10-29 08:15: 00 10-29 07:29 :00 No 1{tbl} 1 tablet, Oral, ONCE, 1 dose, On [place] 10/29/21 at [facility], [facility] ketorolac (TORADOL) injection 60 mg 10-29 08:15: 00 10-29 08:15 :00 No 60mg 60 mg, Intramuscu lar, ONCE, 1 dose, On [place] 10/29/21 at 031, [facility] Ibuprofen 600 MG oral Tablet 10-29 [...] MCG/ACT IN AERS 10-16 00:00: 00 Yes [id number] 1{puff} Q4H Inhale 1 puff into the lungs every 4 hours as needed Nona Taylor Fluticasone Furoate-Lisandra anterol (Breo Ellipta) 200-25 MCG/INH inhalation AEROSOL POWDER, BREATH ACTIVATED 3-14 00:00: 00 Yes [id number] 1{puff} Inhale 1 puff into the lungs [...] POWDER, BREATH ACTIVATED 10-02 00:00: 00 Yes [id number] 1{puff} Inhale 1 puff into the lungs daily Nona Taylor Albuterol HFA (PROAIR HFA) 108 (90 Base) MCG/ACT IN AERS 10-02 00:00: 00 Yes [id number] 1{puff} Q4H Inhale 1 puff into the lungs every 4 hours as needed Nona Taylor Pantoprazol e Sodium 40 MG oral Tablet Delayed Response 10-02 00:00: 00 Yes [id number] 40mg Take 1 tablet (40 mg total) by mouth daily Nona Taylor Levothyroxi ne Sodium 50 MCG oral Tablet 10-02 00:00: 00 Yes [id number] 50ug Take 1 tablet (50 mcg total) by mouth every morning Nona Taylor levothyroxi ne (SYNTHROID) 50 mcg tablet 02-07 16:09: 33 Yes 50ug Take 50 mcg by mouth every morning. [facility] methylPREDN ISolone (MEDROL, JOHNNIE,) 4 mg tablets 02-07 00:00: 00 Yes 84mg Take 21 tablets by mouth SEE-INSTRU CTIONS. follow package directions [facility] Vital Signs Vital Name Observation Time Observation Value Comments Link marinelli Systolic blood pressure 2021-12-08 14:53:00 134 mm[Hg] Nona Kelloggybo ld Diastolic blood pressure 2021-12-08 14:53:00 82 mm[Hg] Nona Kelloggybo ld Heart rate 2021-12-08 14:53:00 68 /min Kelse y ybold Body temperature 2021-12-08 14:53:00 36.56 Claire Nona Kelloggybold Respiratory rate 2021-12-08 14:53:00 14 /min Nona Shearerold Body height 2021-12-08 14:53:00 160 cm Jane kelley Seybold Body weight 2021-12-08 14:53:00 107.956 kg Jane kelley Seybold BMI 2021-12-08 14:53:00 42.16 kg/m2 Jane ey ybold Systolic blood pressure 2021-11-08 14:46:00 136 mm[Hg] Nona Kelloggybo ld Diastolic blood pressure 2021-11-08 14:46:00 80 mm[Hg] Nona Kelloggybo ld Heart rate 2021-11-08 14:46:00 86 /min Kelse y ybold Body temperature 2021-11-08 14:46:00 36.61 Claire Nona Kelloggybold Respiratory rate 2021-11-08 14:46:00 14 /min Nona Kelloggybold Body height 2021-11-08 14:46:00 160 cm Jane warren Kelloggybold Body weight 2021-11-08 14:46:00 107.956 kg Jane ey Seybold BMI 2021-11-08 14:46:00 42.16 kg/m2 Jane ey Seybold Systolic blood pressure 2021-10-29 06:21:00 155 mm[Hg] [facility] Diastolic blood pressure 2021-10-29 06:21:00 97 mm[Hg] [facility] Heart rate 2021-10-29 06:21:00 68 /min [facility] Body temperature 2021-10-29 06:21:00 36.78 Claire [facility] Respiratory rate 2021-10-29 06:21:00 20 /min [facility] Body height 2021-10-29 06:21:00 162.6 cm [facility] Body weight 2021-10-29 06:21:00 104.327 kg [facility] BMI 2021-10-29 06:21:00 39.48 kg/m2 [facility] Oxygen saturation in Arterial blood by Pulse oximetry 2021-10-29 06:21:00 100 /min Marion o [facility] Systolic blood pressure 2021-10-02 15:31:00 132 mm[Hg] Nona Kelloggybo ld Diastolic blood pressure 2021-10-02 15:31:00 82 mm[Hg] Nona Kelloggybo ld Heart rate 2021-10-02 14:44:00 80 /min Kel y Brandon Body temperature 2021-10-02 14:44:00 36.5 Claire Nona Taylor Respiratory rate 2021-10-02 14:44:00 16 /min Nona Taylor Body height 2021-10-02 14:44:00 160 cm Jane Taylor Body weight 2021-10-02 14:44:00 107.502 kg Jane kelley Seybold BMI 2021-10-02 14:44:00 41.98 kg/m2 Jane kelley Seybold Procedures Procedure Date / Time Performed Performing Clinicia n Source XR CHEST 1 VW 2021-10-29 07:00:21 Candelaria Wilkinson [facility] XR RIBS 3 VW LEFT 2021-10-29 07:00:06 Candelaria Wilkinson [facility] Encounters Start Date/Time End Date/Time Encounter Type Admission Type Attending Clinicians Care Facility Care Department Encounter ID Source 2024-04-30 11:15:00 Outpatient [facility] [id number] [facility] 2024-04-20 13:05:00 Outpatient Josephine [facility] [id number] [facility] 2023-11-06 09:19:00 Outpatient Smith, Josephine [facility] [id number] [facility] 2023-10-31 08:50:00 Outpatient Smith, Josephine [facility] [id number] [facility] 2023-10-28 10:45:00 Outpatient Smith, Josephine [facility] [id number] [facility] 2023-10-24 10:43:00 Outpatient Smith, Josephine [facility] [id number] [facility] 2023-07-15 13:16:00 Outpatient Smith, Josephine [facility] [id number] [facility] 2023-07-12 08:58:00 Outpatient Smith, Josephine [facility] [id number] [facility] 2023-06-11 13:55:00 Outpatient Smith, Josephine [facility] [id number] [facility] 2023-04-12 14:32:00 Outpatient Smith, Josephine [facility] [id number] [facility] 2023-04-11 07:40:00 Outpatient Smith, Josephine [facility] [id number] [facility] 2023-02-11 08:05:00 Outpatient Smith, Josephine [facility] [id number] [facility] 2023-01-04 08:36:00 Outpatient Smith, Josephine [facility] [id number] [facility] 2022-12-24 09:03:00 Outpatient Smith, Josephine [facility] [id number] [facility] 2021-08-30 14:29:02 Outpatient Suarez, Na [facility] [id number] [facility] 2021-08-30 14:28:28 Outpatient Suarez, Na [facility] [id number] [facility] 2021-08-30 13:58:22 Outpatient Suarez, Na [facility] [id number] [facility] 2021-08-30 11:58:27 Outpatient Suarez, Na [facility] [id number] [facility] 2021-08-30 11:57:55 Outpatient Francoise Suarez [facility] [id number] [facility] 2021-08-30 11:32:43 Outpatient Suarez, Na [facility] [id number] [facility] 2021-08-30 11:19:24 Outpatient Francoise Suarez [facility] [id number] [facility] 2022-12-27 00:00:00 2022-12-27 00:00:00 Outpatient DANII SCHAEFER [id number] [facility] 2022-01-11 00:00:00 2022-01-11 00:00:00 Outpatient DANII SCHAEFER [id number] [facility] 2022-01-11 00:00:00 2022-01-11 00:00:00 Outpatient DANII SCHAEFER [id number] [facility] 2021-12-18 00:00:00 2021-12-18 00:00:00 Outpatient DANII SCHAEFER [id number] [facility] 2021-12-08 10:00:00 2021-12-08 10:15:00 Office Visit Danii Schaefer [place] [id number] Nona Taylor 2021-11-08 10:00:00 2021-11-08 10:30:00 Office Visit GermanKeshiaelli Johnson Temo Kim [id number] Nona Taylor 2021-11-06 00:00:00 2021-11-06 00:00:00 Outpatient FROYLANIRWIN NONA VEGA [id number] [facility] 2021-10-29 01:20:00 2021-10-29 03:15:00 Emergency X CANDELARIA WILKINSON [facility] ERT [id number] [facility] 2021-10-29 01:20:00 2021-10-29 03:15:00 Emergency Candelaria Wilkinson [facility] [id number] [facility] 2021-10-16 00:00:00 2021-10-16 00:00:00 Outpatient DANII SCHAEFER [id number] [facility] 2021-10-16 00:00:00 2021-10-16 00:00:00 Outpatient DANII SCHAEFER [id number] [facility] 2021-10-16 00:00:00 2021-10-16 00:00:00 Outpatient DANII SCHAEFER [id number] [facility] 2021-10-02 10:15:00 2021-10-02 10:15:00 Outpatient LAB90 NONA VEGA [id number] [facility] 2021-10-02 09:00:00 2021-10-02 10:00:00 Office Visit FroylanIrwin [id number] Nona Brandon 2021-09-25 09:30:00 2021-09-25 09:30:00 Outpatient IRWIN GALEANO [id number] Nona Taylor 2021-09-11 09:30:00 2021-09-11 09:30:00 Outpatient IRWIN GALEANO [id number] Nona Taylor
[2024-07-23] MEDS ORDERED: ALBUTEROL 2.5 MG/3 ML NEB SOL ONE ×3 (00:39→04:12)
[2024-07-23] MEDS ORDERED: IPRATROPIUM BROM 0.5MG/2.5ML ONE (00:58)
[2024-07-23] MEDS ORDERED: METHYLPREDNISOLONE 125 MG INJ ONE ×2 (01:00→01:13)
[2024-07-23] MEDS ORDERED: GUAIFENESIN/DM 5 ML UCUP ONE (01:05)
[2024-07-23 01:27] LABS: SARS-CoV-2 Antigen CONTROL BLUE LINE VIS/BG OK; SARS-CoV-2 Antigen Rapid Res Negative (Negative)
[2024-07-23 01:29] LABS: Absolute Eosinophils 0.1 K/uL (0-0.5); Absolute Lymphocytes (CBC) 2.5 K/uL (0.7-4.9); Absolute Monocytes 0.6 K/uL (0.1-1.3); Absolute Neutrophil 5.2 K/uL (1.8-8.0); Basophils % 0.4 % (0-1.3); Hematocrit 33.6 % (36.0-45.0); Hemoglobin 11.2 g/dL (12.0-15.0); Lymphocytes % 29.8 % (15.3-44.8); MCH 28.3 pg (27.0-35.0); MCHC 33.4 g/dL (32.0-36.0); MCV 84.5 fL (80-100); MPV 7.9 fL (7.6-11.3); Monocytes % 7.5 % (3.3-12.3); Neutrophils % 61.3 % (41.7-73.7); Nucleated RBC Absolute Count 0.1 (0-0); Nucleated Red Blood Cells % 0.7 % (0-0); Platelets 219 thou/uL (152-406); RBC Red Blood Cell Count 3.98 M/uL (3.86-4.86); Red Cell Distribution Width 15.7 % (12.1-15.2)
[2024-07-23 01:49] LABS: Albumin 3.5 g/dL (3.4-5.0); Albumin/Globulin Ratio 0.8 (1.1-1.8); Anion Gap 9.2 mEq/L (5.0-15.0); Bilirubin Total 0.3 mg/dL (0.2-1.0); Globulin 4.5 g/dL (2.3-3.5); Potassium 4.2 mEq/L (3.5-5.1)
--- NOTE | 2024-07-23 03:15 | RAD REPORT ---
CLINICAL HISTORY: Congestion. COMPARISON: None. TECHNIQUE: XR CHEST 2 VIEWS 07/23/2024 12:39 AM SENIOR BENEFITS SPECIALIST FINDINGS: Heart is mildly enlarged. Lungs are clear without consolidation, atelectasis, mass or edema. There is no pleural effusion. There is no pneumothorax. There are no acute osseous findings. IMPRESSION: Clear lungs. Electronically signed by: aJcob Joy MD 07/23/2024 02:54 AM SENIOR BENEFITS SPECIALIST RP Due to temporary technical issues with the PACS/Damballa reporting system, reports are being eric d by the in-house radiologist without review as a courtesy to ensure prompt reporting the interpreting radiologist is fully responsible for the content of the report. Transcribed Date/Time: 07/23/2024 3:15 AM
[2024-07-23] MEDS ORDERED: Magnesium Sulfate 2gm IVPB 2 G/50 ML BAG IV ONE (03:39)
--- NOTE | 2024-07-23 05:16 | EDPHYS ---
Physician Documentation [facility] Name: Tiffany Kim Age: 64 yrs Sex: Female : 1960 Arrival Date: 07/23/2024 Time: 00:13 Bed 4 Private MD: ED Physician Ryan Crawley HPI: 07/23 03:11 This 64 yrs old Female presents to ER via Ambulatory with complaints of sp4 Breathing Difficulty, Cough. 23:52 This is a very pleasant female who presents with complaint of acute asthma worsening sp4 associated with wheezing and shortness of breath plus the dry cough. . Historical: - PMHx: 00:24 Asthma; Hypothyroidism; kd3 - PSHx: 00:24 Cholecystectomy; hysterectomy; kd3 - Immunization history:: Adult Immunizations up to date. - Infectious Disease History:: Denies. - Social history:: Smoking status: Patient denies any tobacco usage or history of. - Family history:: not pertinent. ROS: 23:52 Constitutional: Negative for fever, chills, and weight loss, positive for dyspnea, sp4 positive for wheezing, positive for cough 23:52 All other systems are negative, Exam: 23:52 Constitutional: This is a well developed, well nourished patient who is awake, alert, sp4 and in no acute distress. Head/Face: Normocephalic, atraumatic. Eyes: Pupils equal round and reactive to light, extra-ocular motions intact. Lids and lashes normal. Conjunctiva and sclera are not injected. Cornea within normal limits. Periorbital areas with no swelling, redness, or edema. ENT: Nares patent. No nasal discharge, no septal abnormalities noted. Tympanic membranes are normal and external auditory canals are clear. Oropharynx with no redness, swelling, or masses, exudates, or evidence of obstruction, uvula midline. Mucous membranes moist. Neck: Trachea midline, no thyromegaly or masses palpated, and no cervical lymphadenopathy. Supple, full range of motion without nuchal rigidity, or vertebral point tenderness. Chest/axilla: Normal chest wall appearance and motion. Nontender with no deformity. No lesions are appreciated. Cardiovascular: Regular rate and rhythm with a normal S1 and S2. No gallops, murmurs, or rubs. Normal PMI, no JVD. No pulse deficits. Respiratory: Lungs have equal breath sounds bilaterally, bilateral expiratory wheezes in all lung martin that are moderate Abdomen/GI: Soft, with normal bowel sounds. No distension or tympany. No guarding or rebound. No evidence of tenderness throughout. Back: No spinal tenderness. No costovertebral tenderness. Skin: Warm, dry with normal turgor. Normal color with no rashes, no lesions, and no evidence of cellulitis. MS/ Extremity: Pulses equal, no cyanosis. Neurovascular intact. Full, normal range of motion. Neuro: Awake and alert, GCS 15, oriented to person, place, time, and situation. Cranial nerves II-XII grossly intact. Motor strength 5/5 in all extremities. Sensory grossly intact. Psych: Awake, alert, with orientation to person, place and time. Behavior, mood, and affect are within normal limits Vital Signs: 00:21 BP 153 / 104; Pulse 79; Resp 19; Temp 98.5(O); Pulse Ox 97% ; Weight 106.59 kg; Height kd3 5 ft. 3 in. ; Pain 3/10; 01:30 BP 148 / 67; Pulse 67; Resp 20; Pulse Ox 100% on NC; dd2 02:30 BP 110 / 96; Pulse 83; Resp 19; Pulse Ox 100% ; dd2 03:30 BP 111 / 88; Pulse 87; Resp 20; Pulse Ox 99% ; dd2 04:30 BP 127 / 62; Pulse 98; Resp 19; Pulse Ox 98% on R/A; dd2 05:30 BP 147 / 98; Pulse 92; Resp 19; Pulse Ox 99% on R/A; dd2 06:37 BP 131 / 63; Pulse 86; Resp 19; Temp 98.6; Pulse Ox 99% on R/A; dd2 00:21 Body Mass Index 41.63 (106.59 kg, 160.02 cm) kd3 00:21 Pain Scale: Adult kd3 [place] Coma Score: 00:42 Eye Response: spontaneous(4). Motor Response: obeys commands(6). Verbal Response: dd2 oriented(5). Total: 15. 23:52 Eye Response: spontaneous(4). Motor Response: obeys commands(6). Verbal Response: sp4 oriented(5). Total: 15. MDM: 00:29 Medical Screening Exam initiated sp4 03:11 ED course: CLINICAL HISTORY: Congestion. COMPARISON: None. TECHNIQUE: XR CHEST 2 VIEWS sp4 07/23/2024 12:39 AM BANK VAULT CUSTODIAN FINDINGS: Heart is mildly enlarged. Lungs are clear without consolidation, atelectasis, mass or edema. There is no pleural effusion. There is no pneumothorax. There are no acute osseous findings. IMPRESSION: Clear lungs. Electronically signed by: Jacob Joy MD 07/23/2024 02:54. 23:54 Differential diagnosis: Anemia Anxiety Reaction asthma, Bronchitis Chronic Obstructive sp4 Pulmonary Disease. Data reviewed: vital signs, nurses notes, lab test result(s), radiologic studies, plain films. Consideration of Admission/Observation Escalation of care including admission/observation considered. ED course: Wheezing has resolved after management with breathing treatments. Patient stable for discharge home.. 12 00:29 Order name: Influenza Screen (a \T\ B); Complete Time: 03:11 sp4 07/23 00:33 Order name: SARS RAPID; Complete Time: 03:11 kd3 07/23 00:33 Order name: Strep; Complete Time: 03:11 kd3 07/23 00:39 Order name: CBC with Diff; Complete Time: 03:11 sp4 07/23 00:39 Order name: CMP; Complete Time: 03:11 sp4 07/23 01:29 Order name: Throat Culture EDMI 07/23 00:39 Order name: Chest Pa And Lat (2 Views) XRAY sp4 07/23 00:39 Order name: IV Saline Lock; Complete Time: 01:13 sp4 07/23 00:39 Order name: Labs collected and sent; Complete Time: 01:13 sp4 Administered Medications: 01:16 Drug: MethylPrednisoLONE IVP 125 mg IVP once Route: IVP; Site: left forearm; dd2 01:31 Follow up: Response: No adverse reaction dd2 01:17 Drug: Albuterol Inhalation 2.5 mg Inhalation once Route: Inhalation; dd2 01:47 Follow up: Response: No adverse reaction dd2 01:17 Drug: Albuterol Inhalation 2.5 mg Inhalation every 20 minutes x3 Route: Inhalation; dd2 01:17 Drug: Ipratropium Inhalation Aerosol 0.5 mg Inhalation once; Every 20 min for a total dd2 of 3 treatments x3 Route: Inhalation; 01:17 Not Given (Patient Refused): dextromethorphan-guaifenesinliquid 10 mg-100 mg/5 ml 20 ml dd2 PO once 01:37 Drug: Albuterol Inhalation 2.5 mg Inhalation every 20 minutes x3 Route: Inhalation; dd2 01:47 Follow up: Response: No adverse reaction dd2 01:37 Drug: Ipratropium Inhalation Aerosol 0.5 mg Inhalation once; Every 20 min for a total dd2 of 3 treatments x3 Route: Inhalation; 01:47 Follow up: Response: No adverse reaction dd2 01:59 Drug: Albuterol Inhalation 2.5 mg Inhalation every 20 minutes x3 Route: Inhalation; dd2 02:07 Follow up: Response: No adverse reaction dd2 02:29 Follow up: Response: No adverse reaction dd2 01:59 Drug: Ipratropium Inhalation Aerosol 0.5 mg Inhalation once; Every 20 min for a total dd2 of 3 treatments x3 Route: Inhalation; 02:07 Follow up: Response: No adverse reaction dd2 02:29 Follow up: Response: No adverse reaction dd2 03:43 Drug: Magnesium Sulfate IVPB 2 grams IVPB once over 2 hrs Route: IVPB; Infused Over: 2 dd2 hrs; Site: left forearm; 03:58 Follow up: Response: No adverse reaction dd2 05:43 Follow up: IV Status: Completed infusion; IV Intake: 50ml dd2 04:15 Drug: Albuterol Inhalation 2.5 mg Inhalation every 20 minutes x3 Route: Inhalation; dd2 04:35 Drug: Albuterol Inhalation 2.5 mg Inhalation every 20 minutes x3 Route: Inhalation; dd2 04:45 Follow up: Response: No adverse reaction dd2 04:55 Drug: Albuterol Inhalation 2.5 mg Inhalation every 20 minutes x3 Route: Inhalation; dd2 05:05 Follow up: Response: No adverse reaction dd2 05:25 Follow up: Response: No adverse reaction dd2 06:27 Drug: Acetaminophen-Codeine PO (300 mg-30 mg) 2 tabs PO once; RASS on ADMIN: Combtv4, dd2 Very Agttd3, Agttd2, Rstlss1, AlertClm0, Drwsy-1, Lt Sdtn-2, Mod Sdtn-3, Dp Sdtn-4, UnArsble-5 Route: PO; 06:28 Follow up: Response: Medication administered at discharge. dd2 06:27 Drug: Promethazine PO 25 mg PO once Route: PO; dd2 06:27 Follow up: Response: Medication administered at discharge. dd2 Disposition: 23:54 Critical Care:. sp4 Disposition Summary: 07/23/24 05:15 Discharge Ordered Notes: Location: Home sp4 Problem: new sp4 Symptoms: have improved sp4 Condition: Stable sp4 Diagnosis - Mild persistent asthma with (acute) exacerbation sp4 - Acute bronchitis, unspecified sp4 Followup: sp4 - With: Private Physician - When: 7 - 10 days - Reason: Recheck today's complaints Discharge Instructions: - Discharge Summary Sheet sp4 - Acute Bronchitis, Adult sp4 Forms: - Patient Portal Instructions sp4 Prescriptions: - Dispense One Nebulizer with Adult Mask - 0 Use with Albuterol As Directed; ; Refills: 0, Product Selection Permitted sp4 - dextromethorphan-guaifenesin 20-400 mg Oral tablet - take 1 tablet ORAL route every 6 hours PRN cough; 40 tablet; Refills: 0, sp4 Product Selection Permitted - Albuterol Sulfate 2.5 mg /3 mL (0.083 %) Inhalation Solution for Nebulization - inhale 1 unit NEBULIZATION route every 4 hours As needed Dispense 50 vials, Use sp4 nebulized PRN for wheezing every 4 hours; 50 unit; Refills: 0, Product Selection Permitted - Prednisone 20 mg Oral Tablet - take 2 tablets ORAL route once daily for 5 days; 10 tablet; Refills: 0, Product sp4 Selection Permitted Critical care time excluding procedures: 23:54 Critical care time: Bedside Care: 36 minutes, Family Intervention: 12 minutes. Total sp4 time: 48 minutes Signatures: Dispatcher [employer] Hayley Patterson RN RN kd3 Ryan Crawley MD MD sp4 TALAT JONAS RN RN dd2 Corrections: (The following items were deleted from the chart) 00:33 00:33 SARS-COV-2 Antigen Rapid+I.LAB.BRZ ordered. EDMS EDMS 00:33 00:33 Group A Streptococcus Rapid Sc+BA.LAB.BRZ ordered. EDMS EDMS 00:40 00:40 CBC+H.LAB.BRZ ordered. EDMS EDMS 00:40 00:40 COMPREHENSIVE METABOLIC PANEL+C.LAB.BRZ ordered. EDMS EDMS
--- NOTE | 2024-07-23 05:16 | ER ---
Nurse's Notes [facility] Name: Tiffany Kim Age: 64 yrs Sex: Female : 1960 Arrival Date: 07/23/2024 Time: 00:13 Bed 4 Private MD: Diagnosis: Mild persistent asthma with (acute) exacerbation;Acute bronchitis, unspecified Presentation: 07/23 00:22 Chief complaint: Patient states: I have been sick for about a week and a half. At first kd3 i thought it was allergies but i seem to be getting worse. I have not been around anyone who has been sick that i know of. I have some aches and pains from coughing so hard. I have had cold sweats, cough and phlegm. My throat is also very sore. Coronavirus screen: Vaccine status: Patient reports receiving the 2nd dose of the covid vaccine. Ebola Screen: No symptoms or risks identified at this time. Initial Sepsis Screen: Does the patient meet any 2 criteria? No. Patient's initial sepsis screen is negative. Does the patient have a suspected source of infection? No. Patient's initial sepsis screen is negative. Risk Assessment: Do you want to hurt yourself or someone else? Patient reports no desire to harm self or others. Onset of symptoms was July 13, 2024. 00:22 Method Of Arrival: Ambulatory kd3 00:22 Acuity: RUBI 4 kd3 Triage Assessment: 00:24 General: Appears uncomfortable, Behavior is calm, cooperative. Pain: Complains of pain kd3 in headahce and sore chest from cough. Neuro: Level of Consciousness is awake, alert, obeys commands, Oriented to person, place, time, situation. Respiratory: Reports cough that is productive, Onset: The symptoms/episode began/occurred gradually, the patient has moderate shortness of breath. Historical: - PMHx: 00:24 Asthma; Hypothyroidism; kd3 - PSHx: 00:24 Cholecystectomy; hysterectomy; kd3 - Immunization history:: Adult Immunizations up to date. - Infectious Disease History:: Denies. - Social history:: Smoking status: Patient denies any tobacco usage or history of. - Family history:: not pertinent. Screenin:42 [facility] ED Fall Risk Assessment (Adult) History of falling in the last 3 months, dd2 including since admission No falls in past 3 months (0 pts) Confusion or Disorientation No (0 pts) Intoxicated or Sedated No (0 pts) Impaired Gait No (0 pts) Mobility Assist Device Used No (0 pt) Altered Elimination No (0 pt) Score/Fall Risk Level 0 - 2 = Low Risk Oriented to surroundings, Maintained a safe environment, Educated pt \T\ family on fall prevention, incl call for assistance when getting out of bed, Assessed \T\ reinforced patient's understanding of fall precautions, Hourly rounding (assess needs \T\ fall precautionary measures) done. Abuse screen: Denies threats or abuse. Nutritional screening: No deficits noted. Tuberculosis screening: No symptoms or risk factors identified. Assessment: 00:42 General: Appears uncomfortable, Behavior is calm, cooperative, appropriate for age. dd2 Pain: Complains of pain in chest Pain does not radiate. Aggravated by COUGH. Neuro: No deficits noted. Level of Consciousness is awake, alert, obeys commands, Oriented to person, place, time, situation, Appropriate for age. Cardiovascular: Patient's skin is warm and dry. Rhythm is sinus rhythm. Respiratory: Airway is patent Respiratory effort is even, with retractions, Respiratory pattern is regular, symmetrical, Breath sounds are diminished bilaterally. Breath sounds with wheezes bilaterally. GI: No deficits noted. No signs and/or symptoms were reported involving the gastrointestinal system. Abdomen is round non-distended, Abd is soft and non tender X 4 quads. : No deficits noted. No signs and/or symptoms were reported regarding the genitourinary system. EENT: No deficits noted. No signs and/or symptoms were reported regarding the EENT system. Derm: No deficits noted. No signs and/or symptoms reported regarding the dermatologic system. Musculoskeletal: Circulation, motion, and sensation intact. Range of motion: intact in all extremities. 03:30 Reassessment: No changes from previously documented assessment. Patient and/or family dd2 updated on plan of care and expected duration. Pain level reassessed. Pt continues to have wheezing Koko lobes. Dr. Crawley aware. Orders noted Patient states symptoms have not improved. 05:20 Reassessment: waiting on iv infusion to complete before d/c home. dd2 Vital Signs: 00:21 BP 153 / 104; Pulse 79; Resp 19; Temp 98.5(O); Pulse Ox 97% ; Weight 106.59 kg; Height kd3 5 ft. 3 in. ; Pain 3/10; 01:30 BP 148 / 67; Pulse 67; Resp 20; Pulse Ox 100% on NC; dd2 02:30 BP 110 / 96; Pulse 83; Resp 19; Pulse Ox 100% ; dd2 03:30 BP 111 / 88; Pulse 87; Resp 20; Pulse Ox 99% ; dd2 04:30 BP 127 / 62; Pulse 98; Resp 19; Pulse Ox 98% on R/A; dd2 05:30 BP 147 / 98; Pulse 92; Resp 19; Pulse Ox 99% on R/A; dd2 06:37 BP 131 / 63; Pulse 86; Resp 19; Temp 98.6; Pulse Ox 99% on R/A; dd2 00:21 Body Mass Index 41.63 (106.59 kg, 160.02 cm) kd3 00:21 Pain Scale: Adult kd3 [place] Coma Score: 00:42 Eye Response: spontaneous(4). Motor Response: obeys commands(6). Verbal Response: dd2 oriented(5). Total: 15. 23:52 Eye Response: spontaneous(4). Motor Response: obeys commands(6). Verbal Response: sp4 oriented(5). Total: 15. ED Course: 00:19 Patient arrived in ED. gm2 00:19 Initial Neb Treatment Given as ordered Patient was instructed and evaluated on dd2 procedure. 00:24 Triage completed. kd3 00:24 Arm band placed on right wrist. kd3 00:29 Ryan Crawley MD is Attending Physician. sp4 00:30 Hayley Gunn RN is Primary Nurse. kd3 00:42 Patient has correct armband on for positive identification. Bed in low position. Call dd2 light in reach. Side rails up X2. Client placed on continuous cardiac and pulse oximetry monitoring. NIBP monitoring applied. Door closed. Noise minimized. Pillow given. Verbal reassurance given. 00:42 No provider procedures requiring assistance completed. Subsequent Neb Treatment Given dd2 as ordered Patient was instructed and evaluated on procedure Patient tolerated procedure well without adverse effect. Patient maintains SpO2 saturation greater than 95% on room air. 00:55 Influenza Screen (a \T\ B) Sent. kd3 01:12 Initial lab(s) drawn, by me. Inserted saline lock: 22 gauge in left forearm, using ay aseptic technique. 01:13 CBC with Diff Sent. ay 01:13 CMP Sent. ay 01:30 Chest Pa And Lat (2 Views) XRAY In Process Unspecified. EDMS 06:37 Provided Education on: D/C INSTRUCTIONS. dd2 06:37 IV discontinued, intact, bleeding controlled, No redness/swelling at site. Pressure dd2 dressing applied. Administered Medications: 01:16 Drug: MethylPrednisoLONE IVP 125 mg IVP once Route: IVP; Site: left forearm; dd2 01:31 Follow up: Response: No adverse reaction dd2 01:17 Drug: Albuterol Inhalation 2.5 mg Inhalation once Route: Inhalation; dd2 01:47 Follow up: Response: No adverse reaction dd2 01:17 Drug: Albuterol Inhalation 2.5 mg Inhalation every 20 minutes x3 Route: Inhalation; dd2 01:17 Drug: Ipratropium Inhalation Aerosol 0.5 mg Inhalation once; Every 20 min for a total dd2 of 3 treatments x3 Route: Inhalation; 01:17 Not Given (Patient Refused): dextromethorphan-guaifenesinliquid 10 mg-100 mg/5 ml 20 ml dd2 PO once 01:37 Drug: Albuterol Inhalation 2.5 mg Inhalation every 20 minutes x3 Route: Inhalation; dd2 01:47 Follow up: Response: No adverse reaction dd2 01:37 Drug: Ipratropium Inhalation Aerosol 0.5 mg Inhalation once; Every 20 min for a total dd2 of 3 treatments x3 Route: Inhalation; 01:47 Follow up: Response: No adverse reaction dd2 01:59 Drug: Albuterol Inhalation 2.5 mg Inhalation every 20 minutes x3 Route: Inhalation; dd2 02:07 Follow up: Response: No adverse reaction dd2 02:29 Follow up: Response: No adverse reaction dd2 01:59 Drug: Ipratropium Inhalation Aerosol 0.5 mg Inhalation once; Every 20 min for a total dd2 of 3 treatments x3 Route: Inhalation; 02:07 Follow up: Response: No adverse reaction dd2 02:29 Follow up: Response: No adverse reaction dd2 03:43 Drug: Magnesium Sulfate IVPB 2 grams IVPB once over 2 hrs Route: IVPB; Infused Over: 2 dd2 hrs; Site: left forearm; 03:58 Follow up: Response: No adverse reaction dd2 05:43 Follow up: IV Status: Completed infusion; IV Intake: 50ml dd2 04:15 Drug: Albuterol Inhalation 2.5 mg Inhalation every 20 minutes x3 Route: Inhalation; dd2 04:35 Drug: Albuterol Inhalation 2.5 mg Inhalation every 20 minutes x3 Route: Inhalation; dd2 04:45 Follow up: Response: No adverse reaction dd2 04:55 Drug: Albuterol Inhalation 2.5 mg Inhalation every 20 minutes x3 Route: Inhalation; dd2 05:05 Follow up: Response: No adverse reaction dd2 05:25 Follow up: Response: No adverse reaction dd2 06:27 Drug: Acetaminophen-Codeine PO (300 mg-30 mg) 2 tabs PO once; RASS on ADMIN: Combtv4, dd2 Very Agttd3, Agttd2, Rstlss1, AlertClm0, Drwsy-1, Lt Sdtn-2, Mod Sdtn-3, Dp Sdtn-4, UnArsble-5 Route: PO; 06:28 Follow up: Response: Medication administered at discharge. dd2 06:27 Drug: Promethazine PO 25 mg PO once Route: PO; dd2 06:27 Follow up: Response: Medication administered at discharge. dd2 Medication: 00:42 VIS not applicable for this client. dd2 Intake: 05:43 IV: 50ml; Total: 50ml. dd2 Outcome: 05:15 Discharge ordered by . sp4 06:37 Discharged to home ambulatory, dd2 06:37 Condition: stable 06:37 Discharge instructions given to patient, family, Instructed on discharge instructions, follow up and referral plans. medication usage, Demonstrated understanding of instructions, follow-up care, medications, Prescriptions given X 3, 06:39 Patient left the ED. dd2 Signatures: Dispatcher [employer] Hayley Patterson RN RN [email or web address] Ryan Crawley MD MD sp4 Ani Plummer gm2 TALAT JONAS RN RN dd2 Trent Aden RN RN ay Corrections: (The following items were deleted from the chart) 06:19 06:17 Reassessment: waiting on iv infusion to complete before d/c home dd2 dd2
[2024-07-23] MEDS ORDERED: PROMETHAZINE 25 MG TABLET ONE (06:24)
[2024-07-23] MEDS ORDERED: CODEINE 30MG/APAP 300MG TAB ONE (06:24)
[2024-07-23 07:08] VITALS: O2SAT 99
[2024-07-23 07:09] VITALS: BP 131/63; TEMP 98.6
== END 2024-07-23 06:39 | disposition home or self-care (01) ==
LOC: ER 00:13
DX: J45.909 Unspecified asthma, uncomplicated (principal); E03.9 Hypothyroidism, unspecified; J45.31 Mild persistent asthma with (acute) exacerbation; J40 Bronchitis, not specified as acute or chronic; Z11.52 Encounter for screening for COVID-19
CPT/HCPCS: 96365; 87070; 85025; 36415; 87081; 80053; 87804 ×2; 71046; 94640; 96375; 99285; 96366; 87811; Q0169; J3475; J7613 ×3; J7644; J2919

== ENCOUNTER 2024-11-04 14:11 | Emergency (ER) | payer OTHER ==
--- OUTSIDE RECORDS SUMMARY | 2024-11-04 14:15 | XMS REPORT | Continuity of Care Document ---
Author Name Unknown Address [address] [place] [address] [facility] [address] [place] [address] Care Team Providers Care Networking Engineer Name Role Phone SCHUYLER LANG Primary Care Physician Unavailab Josephine Londono Attending Clinician Unavailable Francoise Suarez Attending Clinician Unavailable DANII SCHAEFER Attending Clinician Danii Frank MD Attending Clinician [phone] IRWIN GALEANO Attending Clinician Unavailable Candelaria Rivera Attending Clinician [phone] CANDELARIA WILKINSON Attending Clinician Unavailable LAB90 Attending Clinician Unavailable Irwin Moreno Attending Clinician [phone] Teddy Smith Admitting Clinician Unavailable CANDELARIA WILKINSON Admitting Clinician Unavailable Payers Payer Name Policy Type Policy Number Effective Date Expirati on Date Source [employer] 2 [id number] 2021 00:00:00 Problems Condition Name Condition Details Condition Category Status Onset Date Resolution Date Last Treatment Date Treating Clinician Comments Source Hypothyroi dism Hypothyroi dism Disease Active 10-02 00:00: 00 Nona Kelloggjaileigh Mild persistent asthma without complicati on Mild persistent asthma without complicati on Disease Active 10-02 00:00: 00 Onna Sejaileigh Gastroesop hageal reflux disease Gastroesop hageal reflux disease Disease Active 10-02 00:00: 00 Nona Sejaileigh Left knee pain Left knee pain Disease Active 02-07 00:00: 00 [facility] Allergies, Adverse Reactions, Alerts Allergy Name Allergy Type Status Severity Reaction(s) Onset Date Inactive Date Treating Clinician Comments Source NO KNOWN ALLERGIE S Drug Class Active [facility] Social History Social Habit Start Date Stop Date Quantity Comments Source Exposure to SARS-CoV-2 (event) Not sure [facility] Alcohol intake 2021-10-29 00:00:00 2021-10-29 00:00:00 0 /d [facility] Sex Assigned At 1960 00:00:00 1960 00:00:00 [facility] Smoking Status Start Date Stop Date Source Never smoked tobacco Nona Taylor Medications Ordered Medication Name Filled Medication Name Start Date Stop Date Current Medication? Ordering Clinician Indication Dosage Frequency Signature (SIG) Comments Components Source Methocarbam ol 750 MG oral Tablet 12-08 00:00: 00 Yes [id number] TAKE 1 TABLET BY MOUTH FOUR TIMES A DAY NEEDED FOR MUSCLE SPASM Nona Taylor Acetaminoph en-Codeine 300-30 MG oral Tablet 11-08 00:00: 00 Yes [id number] 1{tbl} Q.25D Take 1 tablet by mouth every 6 hours as needed for pain Nona Taylor Ibuprofen 600 MG oral Tablet 11-08 00:00: 00 Yes [id number] 600mg [id number] 3D Take 1 tablet (600 mg total) by mouth every 8 hours as needed Nona Taylor Methocarbam ol 750 MG oral Tablet 11-08 00:00: 00 Yes [id number] TAKE 1 TABLET BY MOUTH FOUR TIMES A DAY NEEDED FOR MUSCLE SPASM Nona Taylor methocarbam oL (ROBAXIN) tablet 1,000 mg 10-29 08:15: 00 10-29 07:29 :00 No 1000mg 1,000 mg, Oral, ONCE, 1 dose, On 10/29/21 at 031, [facility] HYDROcodone -acetaminop hen (NORCO 5) 5-325 mg tablet 1 tablet 10-29 08:15: 00 10-29 07:29 :00 No 1{tbl} 1 tablet, Oral, ONCE, 1 dose, On 10/29/21 at 031, [facility] ketorolac (TORADOL) injection 60 mg 10-29 08:15: 00 10-29 08:15 :00 No 60mg 60 mg, Intramuscu lar, ONCE, 1 dose, On 10/29/21 at 031, [facility] Ibuprofen 600 MG oral Tablet 10-29 [...] MCG/ACT IN AERS 10-16 00:00: 00 Yes [id number] 1{puff} Q4H Inhale 1 puff into the lungs every 4 hours as needed Nona Taylor Fluticasone Furoate-Lisandra anterol (Breo Ellipta) 200-25 MCG/INH inhalation AEROSOL POWDER, BREATH ACTIVATED 10-16 00:00: 00 Yes [id number] 1{puff} Inhale 1 puff into the lungs [...] POWDER, BREATH ACTIVATED 10-02 00:00: 00 Yes [id number] 1{puff} Inhale 1 puff into the lungs daily Nona Taylor Albuterol HFA (PROAIR HFA) 108 (90 Base) MCG/ACT IN AERS 10-02 00:00: 00 Yes [id number] 1{puff} Q4H Inhale 1 puff into the lungs every 4 hours as needed Nona Taylor Pantoprazol e Sodium 40 MG oral Tablet Delayed Response 10-02 00:00: 00 Yes [id number] 40mg Take 1 tablet (40 mg total) by mouth daily Nona Taylor Levothyroxi ne Sodium 50 MCG oral Tablet 10-02 00:00: 00 Yes [id number] 50ug Take 1 tablet (50 mcg total) by mouth every morning Nona Taylor levothyroxi ne (SYNTHROID) 50 mcg tablet 02-07 16:09: 33 Yes 50ug Take 50 mcg by mouth every morning. [facility] methylPREDN ISolone (MEDROL, JOHNNIE,) 4 mg tablets 02-07 00:00: 00 Yes 84mg Take 21 tablets by mouth SEE-INSTRU CTIONS. follow package directions [facility] Vital Signs Vital Name Observation Time [...] pressure 2021-11-08 14:46:00 80 mm[Hg] Nona Shearero gulshan Heart rate 2021-11-08 14:46:00 86 /min Navya Taylor Body temperature 2021-11-08 14:46:00 36.61 Claire Nona Taylor Respiratory rate 2021-11-08 14:46:00 14 /min Nona Taylor Body height 2021-11-08 14:46:00 160 cm Jane Taylor Body weight 2021-11-08 14:46:00 107.956 kg Jane kelley Seybleigh BMI 2021-11-08 14:46:00 42.16 kg/m2 Jane kelley Seybleigh Systolic blood pressure 2021-10-29 06:21:00 155 mm[Hg] [facility] Diastolic blood pressure 2021-10-29 06:21:00 97 mm[Hg] [facility] Heart rate 2021-10-29 06:21:00 68 /min Xohcitl [facility] Body temperature 2021-10-29 06:21:00 36.78 Claire [facility] Respiratory rate 2021-10-29 06:21:00 20 /min [facility] Body height 2021-10-29 06:21:00 162.6 cm [facility] Body weight 2021-10-29 06:21:00 104.327 kg [facility] BMI 2021-10-29 06:21:00 39.48 kg/m2 [facility] Oxygen saturation in Arterial blood by Pulse oximetry 2021-10-29 06:21:00 100 /min [facility] Systolic blood pressure 2021-10-02 15:31:00 132 mm[Hg] Nona Seybo ld Diastolic blood pressure 2021-10-02 15:31:00 82 mm[Hg] Nona ybo ld Heart rate 2021-10-02 14:44:00 80 /min Kelse y ybold Body temperature 2021-10-02 14:44:00 36.5 Claire Nona Seybold Respiratory rate 2021-10-02 14:44:00 16 /min Nona Seybold Body height 2021-10-02 14:44:00 160 cm Jane ey Seybold Body weight 2021-10-02 14:44:00 107.502 kg Jane ey Seybold BMI 2021-10-02 14:44:00 41.98 kg/m2 Jane ey Seybold Procedures Procedure Date / Time Performed Performing Clinicia n Source XR CHEST 1 VW 2021-10-29 07:00:21 Candelaria Wilkinson [facility] XR RIBS 3 VW LEFT 2021-10-29 07:00:06 Candelaria Wilkinson [facility] Encounters Start Date/Time End Date/Time Encounter Type Admission Type Attending Clinicians Care Facility Care Department Encounter ID Source 2024-10-27 15:00:00 [facility] [id number] [facility] 2024-04-30 11:15:00 [facility] [id number] [facility] 2024-04-20 13:05:00 Outpatient Josephine Smith [facility] [id number] [facility] 2023-11-06 09:19:00 Outpatient SmithCalderoni [facility] [id number] [facility] 2023-10-31 08:50:00 Outpatient Smith, Josephine [facility] [id number] [facility] 2023-10-28 10:45:00 Outpatient Smith, Josephine [facility] [id number] [facility] 2023-10-24 10:43:00 Outpatient Smith, Josephine [facility] [id number] [facility] 2023-07-15 13:16:00 Outpatient Smith, Josephine [facility] [id number] [facility] 2023-07-12 08:58:00 Outpatient Smith, Josephine [facility] [id number] [facility] 2023-06-11 13:55:00 Outpatient Smith, Josephine [facility] [id number] [facility] 2023-04-12 14:32:00 Outpatient Smith, Josephine [facility] [id number] [facility] 2023-04-11 07:40:00 Outpatient Smith, Josephine [facility] [id number] [facility] 2023-02-11 08:05:00 Outpatient Smith, Josephine [facility] [id number] [facility] 2023-01-04 08:36:00 Outpatient Smith, Josephine [facility] [id number] [facility] 2022-12-24 09:03:00 Outpatient Smith, Josephine [facility] [id number] [facility] 2021-08-30 14:29:02 Outpatient Suarez, Na [facility] [id number] [facility] 2021-08-30 14:28:28 Outpatient Suarez, Na [facility] [id number] [facility] 2021-08-30 13:58:22 Outpatient Suarez, Na [facility] [id number] [facility] 2021-08-30 11:58:27 Outpatient Suarez, Na [facility] [id number] [facility] 2021-08-30 11:57:55 Outpatient Suarez, Na [facility] [id number] [facility] 2021-08-30 11:32:43 Outpatient Suarez, Na [facility] [id number] [facility] 2021-08-30 11:19:24 Outpatient Daniela Na [facility] [id number] [facility] 2022-12-27 00:00:00 2022-12-27 00:00:00 Outpatient DANII SCHAEFER [id number] [facility] 2022-01-11 00:00:00 2022-01-11 00:00:00 Outpatient DANII SCHAEFER [id number] [facility] 2022-01-11 00:00:00 2022-01-11 00:00:00 Outpatient DANII SCHAEFER [id number] [facility] 2021-12-18 00:00:00 2021-12-18 00:00:00 Outpatient DANII SCHAEFER [id number] [facility] 2021-12-08 10:00:00 2021-12-08 10:15:00 Office Visit Danii Schaefer [place] [id number] Nona Taylor 2021-11-08 10:00:00 2021-11-08 10:30:00 Office Visit GermanKeshia lagoselli Johnson Temo Kim [id number] Nona Taylor 2021-11-06 00:00:00 2021-11-06 00:00:00 Outpatient FROYLANIRWIN NONA VEGA [id number] Nona Taylor 2021-10-29 01:20:00 2021-10-29 03:15:00 Emergency Candelaria Wilkinson [facility] [id number] [facility] 2021-10-29 01:20:00 2021-10-29 03:15:00 Emergency X CANDELARIA WILKINSON [facility] ERT [id number] [facility] 2021-10-16 00:00:00 2021-10-16 00:00:00 Outpatient DANII SCHAEFER [id number] [facility] 2021-10-16 00:00:00 2021-10-16 00:00:00 Outpatient DANII SCHAEFER [id number] [facility] 2021-10-16 00:00:00 2021-10-16 00:00:00 Outpatient DANII SCHAEFER [id number] [facility] 2021-10-02 10:15:00 2021-10-02 10:15:00 Outpatient LABLisa VEGA [id number] Nonaallen Taylor 2021-10-02 09:00:00 2021-10-02 10:00:00 Office Visit FroylanIrwin [id number] Nona Brandon 2021-09-25 09:30:00 2021-09-25 09:30:00 Outpatient IRWIN GALEANO [id number] Nona Taylor 2021-09-11 09:30:00 2021-09-11 09:30:00 Outpatient IRWIN GALEANO [id number] Nona Taylor
[2024-11-04 16:55] LABS: Absolute Basophils 0.1 K/uL (0-0.5); Absolute Eosinophils 0.2 K/uL (0-0.5); Absolute Lymphocytes (CBC) 2.2 K/uL (0.7-4.9); Absolute Monocytes 0.5 K/uL (0.1-1.3); Absolute Neutrophil 4.9 K/uL (1.8-8.0); Basophils % 1.1 % (0-1.3); Eosinophils % 2.2 % (0-4.4); Hematocrit 32.3 % (36.0-45.0); Hemoglobin 10.6 g/dL (12.0-15.0); Lymphocytes % 27.8 % (15.3-44.8); MCH 27.8 pg (27.0-35.0); MCHC 32.9 g/dL (32.0-36.0); MCV 84.4 fL (80-100); MPV 8.4 fL (7.6-11.3); Monocytes % 6.9 % (3.3-12.3); Platelets 227 thou/uL (152-406); RBC Red Blood Cell Count 3.82 M/uL (3.86-4.86); Red Cell Distribution Width 14.8 % (12.1-15.2)
[2024-11-04 17:02] LABS: ALT/SGPT 16 U/L (13-56); Albumin 3.4 g/dL (3.4-5.0); Albumin/Globulin Ratio 0.8 (1.1-1.8); Alkaline Phosphatase 80 U/L (45-117); Anion Gap 6.9 mEq/L (5.0-15.0); BUN Blood Urea Nitrogen 14 mg/dL (7-18); Bicarbonate 30 mEq/L (21-32); Bilirubin Total 0.3 mg/dL (0.2-1.0); Ferritin 54.5 ng/mL (8-252); Globulin 4.1 g/dL (2.3-3.5); Glomerular Filtration Rate 100 ml/min (=/>90); Glucose Level 87 mg/dL (74-106); Potassium 3.9 mEq/L (3.5-5.1); Protein, Total 7.5 g/dL (6.4-8.2); Sodium Level 140 mEq/L (136-145); Transferrin 246 mg/dL (200-360)
[2024-11-04 17:03] LABS: AST/SGOT < 10 U/L (15-37)
--- NOTE | 2024-11-04 17:05 | EDPHYS ---
Physician Documentation [facility] Name: Tiffany Kim Age: 64 yrs Sex: Female : 1960 Arrival Date: 11/04/2024 Time: 14:11 Bed 2 Private MD: ED Physician Panfilo Garcia HPI: 11/04 14:59 This 64 yrs old Female presents to ER via Ambulatory with complaints of left dr5 arm bruise. 14:59 Patient is a 64-year-old female with history of asthma and hypothyroidism coming in for dr5 bruise to left arm that started this morning after she hit her arm on a door. Patient reports that she does not take any blood thinners such as aspirin or Xarelto daily. Patient states that she barely hit her arm on the door and does not normally bruise this badly.. Historical: - Allergies: 14:39 No Known Allergies; iw - PMHx: 14:39 Asthma; Hypothyroidism; iw - PSHx: 14:39 Cholecystectomy; hysterectomy; iw ROS: 14:59 Constitutional: as per hpi dr5 Exam: 14:59 Constitutional: This is a well developed, well nourished patient who is awake, alert, dr5 and in no acute distress. Head/Face: Normocephalic, atraumatic. Eyes: Pupils equal round and reactive to light, extra-ocular motions intact. Lids and lashes normal. Conjunctiva and sclera are non-icteric and not injected. Cornea within normal limits. Periorbital areas with no swelling, redness, or edema. Chest/axilla: Normal chest wall appearance and motion. Nontender with no deformity. No lesions are appreciated. Cardiovascular: Regular rate and rhythm with a normal S1 and S2. Normal PMI, no JVD. No pulse deficits. Respiratory: Lungs have equal breath sounds bilaterally, clear to auscultation. No rales, rhonchi or wheezes noted. No increased work of breathing, no retractions or nasal flaring. Skin: Warm, dry with normal turgor. Contusion noted to left forearm. FROM. NVI. Vital Signs: 14:39 BP 175 / 84; Pulse 63; Resp 18; Temp 97.9; Pulse Ox 99% on R/A; Weight 102.51 kg; iw Height 5 ft. 3 in. ; 14:39 Body Mass Index 40.03 (102.51 kg, 160.02 cm) iw MDM: 14:15 Medical Screening Exam initiated dr5 17:08 Differential diagnosis: viral Infection, bacterial infection, Thrombocytopenia, anemia. dr5 Data reviewed: vital signs, nurses notes. Care significantly affected by the following Social Determinants of Health: Poor access to healthcare and/or lack of insurance, Poor access to transportation, Problems related to employment. Counseling: I had a detailed discussion with the patient and/or guardian regarding the historical points, exam findings, and any diagnostic results supporting the discharge/admit diagnosis, the presence of at least one elevated blood pressure reading (>120/80) during this emergency department visit, lab results, the need for outpatient follow up, for definitive care, a family practitioner, to return to the emergency department if symptoms worsen or persist or if there are any questions or concerns that arise at home. ED course: Discussed lab results with patient. Plan results and given to patient to follow-up with primary care doctor. No thrombocytopenia noted. Patient is on pain at this time. All questions answered. STRICT ER precautions.. 11/04 14:53 Order name: CBC with Diff; Complete Time: 17:00 dr5 11/04 14:53 Order name: CMP; Complete Time: 17:04 dr5 11/04 14:53 Order name: Iron Level; Complete Time: 17:04 dr5 11/04 14:53 Order name: TIBC; Complete Time: 17:04 dr5 Administered Medications: No medications were administered Disposition: 15:04 I was immediately available on-site in the Emergency Department for consultation in the ms3 care of the patient. Disposition Summary: 11/04/24 17:04 Discharge Ordered Notes: Location: Home dr5 Condition: Stable dr5 Diagnosis - Contusion of left forearm dr5 Followup: dr5 - With: Emergency Department - When: As needed - Reason: Worsening of condition Followup: dr5 - With: Private Physician - When: 1 - 2 days - Reason: Recheck today's complaints, Continuance of care, Re-evaluation by your physician Discharge Instructions: - Discharge Summary Sheet dr5 - Contusion dr5 Forms: - Medication Reconciliation Form dr5 - Patient Portal Instructions dr5 - Leadership Thank You Letter dr5 Signatures: Dispatcher MedHoShereen Greenwood RN RN iw Panfilo Garcia DO DO ms3 Jostin Palacios FNP-C SALES [employer] CUSTOMER RELATIONS REP-Cdr5 Corrections: (The following items were deleted from the chart) 14:54 14:54 CBC+H.LAB.BRZ ordered. EDMS EDMS 14:54 14:54 COMPREHENSIVE METABOLIC PANEL+C.LAB.BRZ ordered. EDMS EDMS 14:54 14:54 FERRITIN+C.LAB.BRZ ordered. EDMS EDMS 14:54 14:54 TRANSFERRIN SAT/IRON BINDING+C.LAB.BRZ ordered. EDMS EDMS 17:09 16:47 Transition of care: After a detail discussion of the patient's case, care is dr5 transferred to Macey LINDQUIST-C dr5
--- NOTE | 2024-11-04 17:05 | ER ---
Nurse's Notes [facility] Name: Tiffany Kim Age: 64 yrs Sex: Female : 1960 Arrival Date: 11/04/2024 Time: 14:11 Bed 2 Private MD: Diagnosis: Contusion of left forearm Presentation: 11/04 14:37 Chief complaint: Patient states: she hit her left arm against a door today and a bruise iw instantly appeared, she had a bruise form her dog leash that happened a few days ago, they told her that her iron levels were low in apr and she was mildly anemic. Coronavirus screen: At this time, the client does not indicate any symptoms associated with coronavirus-19. Ebola Screen: No symptoms or risks identified at this time. Initial Sepsis Screen: Does the patient meet any 2 criteria? No. Patient's initial sepsis screen is negative. Does the patient have a suspected source of infection? No. Patient's initial sepsis screen is negative. Risk Assessment: Do you want to hurt yourself or someone else? Patient reports no desire to harm self or others. Onset of symptoms was November 04, 2024. 14:37 Method Of Arrival: Ambulatory iw 14:37 Acuity: RUBI 3 iw Historical: - Allergies: 14:39 No Known Allergies; iw - PMHx: 14:39 Asthma; Hypothyroidism; iw - PSHx: 14:39 Cholecystectomy; hysterectomy; iw Screenin:04 [facility] ED Fall Risk Assessment (Adult) History of falling in the last 3 months, jb4 including since admission No falls in past 3 months (0 pts) Confusion or Disorientation No (0 pts) Intoxicated or Sedated No (0 pts) Impaired Gait No (0 pts) Mobility Assist Device Used No (0 pt) Altered Elimination No (0 pt) Score/Fall Risk Level 0 - 2 = Low Risk Oriented to surroundings, Maintained a safe environment. Abuse screen: Denies threats or abuse. Nutritional screening: No deficits noted. Tuberculosis screening: No symptoms or risk factors identified. Assessment: 16:04 General: Appears in no apparent distress. comfortable, Behavior is calm, cooperative, jb4 appropriate for age. Pain: Denies pain. Neuro: Level of Consciousness is awake, alert, obeys commands, Oriented to person, place, time, situation. Cardiovascular: Patient's skin is warm and dry. Respiratory: Airway is patent Respiratory effort is even, unlabored, Respiratory pattern is regular, symmetrical. Derm: Skin is intact, Skin is pink, warm \T\ dry. Bruising that is dark purple, on dorsal aspect of left forearm. Musculoskeletal: Circulation, motion, and sensation intact. Range of motion: intact in all extremities. 16:09 Reassessment: attempted to draw blood from existing line and attempted to draw labs via jb4 venipuncture, both attempts unsuccessful. Phlebotomy notified. 17:16 Reassessment: Patient appears in no apparent distress at this time. Patient and/or jb4 family updated on plan of care and expected duration. Pain level reassessed. Patient is alert, oriented x 3, equal unlabored respirations, skin warm/dry/pink. Vital Signs: 14:39 BP 175 / 84; Pulse 63; Resp 18; Temp 97.9; Pulse Ox 99% on R/A; Weight 102.51 kg; iw Height 5 ft. 3 in. ; 14:39 Body Mass Index 40.03 (102.51 kg, 160.02 cm) iw ED Course: 14:14 Patient arrived in ED. im 14:15 Jostin Palacios FNP-C is PHCP. dr5 14:15 Panfilo Garcia DO is Attending Physician. dr5 14:38 Triage completed. iw 14:40 Arm band placed on. iw 15:10 Inserted saline lock: 22 gauge in right forearm, using aseptic technique. Flushed with iw 10 mL NS. 15:27 Patient placed in an exam room, on a stretcher. ll1 16:03 Mal Mcpherson, RN is Primary Nurse. jb4 16:04 Patient has correct armband on for positive identification. Bed in low position. Call jb4 light in reach. Side rails up X 1. Provided Education on: plan of care. 16:04 No provider procedures requiring assistance completed. jb4 16:50 PHCP role handed off by Jostin Palacios FNP-C kb 16:50 Macey Kim FNP-C is PHCP. kb 17:04 Jostin Palacios FNP-C is PHCP. kb 17:16 IV discontinued, intact, bleeding controlled, No redness/swelling at site. Pressure jb4 dressing applied. Administered Medications: No medications were administered Medication: 16:04 VIS not applicable for this client. jb4 Outcome: 17:04 Discharge ordered by . jil 17:16 Discharged to home ambulatory, jb4 17:16 Condition: stable 17:16 Discharge instructions given to patient, Instructed on discharge instructions, follow up and referral plans. Demonstrated understanding of instructions, follow-up care, 17:17 Patient left the ED. jb4 Signatures: Macey Kim, PRISON PSYCHIATRIST-C PRISON PSYCHIATRIST-Ckb Shereen Putnam RN RN iw Mal Mcpherson RN RN jb4 Magali Farrell RN RN ll1 Omayra Velasquez Dustin, PRISON PSYCHIATRIST-C PRISON PSYCHIATRIST-Cdr5 Corrections: (The following items were deleted from the chart) 14:40 14:37 Chief complaint: Patient states: she hit her left arm against a door today and a iw bruise instantly appeared, she had a bruise form her dog leash that happened a few days ago iw 14:41 14:39 BP 175 / 84; Pulse 63bpm; Resp 18bpm; Pulse Ox 99% RA; Temp 97.9F; iw iw
[2024-11-04 18:01] VITALS: BP 175/84; TEMP 97.9; O2SAT 99
== END 2024-11-04 17:17 | disposition home or self-care (01) ==
LOC: ER 14:11
DX: S50.12XA Contusion of left forearm, initial encounter (principal); W22.8XXA Striking against or struck by other objects, initial encounter; E03.9 Hypothyroidism, unspecified; J45.909 Unspecified asthma, uncomplicated
CPT/HCPCS: 36415; 80053; 82728; 83540; 84466; 85025; 99283